=== PATIENT | female | born 1940 | race Caucasian/White ===

== ENCOUNTER → 2020-03-13 10:14 | Outpatient (CLI) | payer MEDICARE, OTHER, SELFPAY ==
--- NOTE | ~2020-03-13 | MM_ITS ---
EXAMINATION: MM screening mireille BI w wally HISTORY: Screening mammogram TECHNIQUE: Craniocaudal and mediolateral oblique 3-D tomosynthesis images were obtained and synthetic 2-D images were generated. CAD analysis was submitted and interpreted. COMPARISON: 02/03/2019, 01/03/2018, 11/09/2016 bilateral digital screening mammogram examinations BREAST PARENCHYMAL COMPOSITION: There are scattered areas of fibroglandular density. FINDINGS: There is no evidence of suspicious mass, calcification, or architectural distortion to sugg est malignancy in either breast. There has been no suspicious interval change. IMPRESSION: 1. No mammographic evidence of malignancy. 2. Recommend routine screening mammography in one year. BI-RADS Category 1: Negative Reviewed, dictated and finalized at location A. NOMETER ADJUSTER
--- NOTE | ~2020-03-13 | DEXA_ITS ---
Bone Density Report Name: Laina Kirk Age: 79 Sex: Female Ethnicity: White Date of : 1940 Indication: postmenopausal; screening for osteoporosis; height loss; hysterectomy; Referring Provider: Sunita Anaya Study: Bone densitometry was performed. Exam Date: March 13, 2020 Accession number: [id number] There is hypertrophic degenerative change of the lumbar spine, which results in higher than expected spine bone mineral density measurements. These spine BMD and T score and Z score measurements are not reflective of the patient's true general bone mineral density. Bone Density: Region BMD T-score Z-score Classification AP Spine (L1, L4) 1.024 -0.1 2.6 Normal Femoral Neck (Left) 0.618 -2.1 0.3 Osteopenia Total Hip (Left) 0.810 -1.1 1.0 Osteopenia Femoral Neck (Right) 0.681 -1.5 0.8 Osteopenia Total Hip (Right) 0.928 -0.1 2.0 Normal Total Hip Mean 0.869 -0.6 1.5 Normal World Health Organization criteria for BMD impression classify patients as: Normal (T-score at or above -1.0), Osteopenia (T-score between -1.0 and -2.5), or Osteoporosis (T-score at or below -2.5). 10-year Fracture Risk(1): Major Osteoporotic Fracture 16% Hip Fracture 4.8% Reported Risk Factors: [place] (), Neck BMD=0.618, BMI=27.9 (1) FRAX(R) Version 3.08. Fracture probability calculated for an untreated patient. Fracture probability may be lower if the patient has received treatment. Previous Exams: Region Exam Age BMD T-score BMD Change BMD Change Date g/cm2 vs Baseline vs Previous AP Spine(L1, L4) 03/13/2020 79 1.024 -0.1 0.025 0.007 12/18/2017 77 1.017 -0.2 0.018 0.026* 07/07/2010 69 0.991 -0.4 -0.008 -0.008 09/07/2003 62 0.999 -0.3 Total Hip(Left) 03/13/2020 79 0.810 -1.1 0.015 -0.026 12/18/2017 77 0.836 -0.9 0.041 0.042* 07/07/2010 69 0.794 -1.2 -0.002 -0.002 09/07/2003 62 0.795 -1.2 Total Hip(Right) 03/13/2020 79 0.928 -0.1 0.047 -0.004 12/18/2017 77 0.932 -0.1 0.050 0.059* 07/07/2010 69 0.873 -0.6 -0.009 -0.009 09/07/2003 62 0.881 -0.5 *Denotes significance at 95% confidence level, LSC for AP Spine = 0.022 g/cm2, LSC for Total Hip = 0.027 g/cm2 Clinical Information Provided by Patient: Has used the following medications: Vitamin D, Calcium Has the following medical conditions: Hysterec
== END ==
PROVIDERS: Visit Provider Family Medicine
DX: Z12.31 Encounter for screening mammogram for malignant neoplasm of breast (principal); Z78.0 Asymptomatic menopausal state; M85.89 Other specified disorders of bone density and structure, multiple sites
CPT/HCPCS: 77063; 77067; 77080

== ENCOUNTER 2020-12-31 13:01 | Emergency (ER) | payer MEDICARE, SELFPAY ==
--- NOTE | 2020-12-31 13:04 | ED.URI ---
HPI - URI/Sore Throat General Chief Complaint: Upper Respiratory Infection Stated Complaint: Sore Throat,Cough,Body Aches,Sinus Time Seen by Provider: 12/31/20 13:08 Source: patient, family (daughter), RN notes reviewed and old records reviewed Mode of arrival: ambulatory Limitations: no limitations History of Present Illness HPI Narrative: 80 yo female presents to the [facility] with C/O sore throat, sinus congestion and right ear discomfort since Sunday, 4 days. Tried Mucinex last night without relief. Patient denies chest pain. No abdominal pain. No fevers. No nausea vomiting or diarrhea. Related Data Home Medications Medication Instructions Recorded Confirmed calcium phosphate 250 mg-vit D3 1 tablet PO DAILY 03/04/19 12/31/20 12.5 mcg (500 unit) chewable tablet biotin 5,000 mcg disintegrating 5,000 mcg PO DAILY tablet 01/07/20 12/31/20 tablet cholecalciferol (vitamin D3) 50 50 mcg PO DAILY 01/07/20 12/31/20 mcg (2,000 unit) capsule psyllium husk 0.4 gram capsule 0.4 g PO DAILY 01/07/20 12/31/20 Allergies Allergy/AdvReac Type Severity Reaction Status Date / Time Sulfa (Sulfonamide Allergy Mild Hives Verified 12/31/20 13:19 Antibiotics) Review of Systems Review of Systems: All systems reviewed & are unremarkable except as noted in HPI and below Constitutional: Constitutional: Reports no additional constitutional complaints, Denies chills and Denies fever(s) Eyes: Eyes: Reports no additional eye complaints, Denies change in vision and Denies photophobia ENT: Reports as per HPI and Reports sore throat Cardiovascular: Cardiovascular: Reports no additional cardiovascular complaints and Denies chest pain Respiratory: Respiratory: Reports no additional respiratory complaints, Denies cough, Denies dyspnea and Denies wheezing Gastrointestinal: Gastrointestinal: Reports no additional gastrointestinal complaints, Denies abdominal pain, Denies nausea and Denies vomiting Musculoskeletal: Musculoskeletal: Reports no additional musculoskeletal complaints Integumentary/Breasts: Skin/Breast: Reports system reviewed and no additional complaints, except as docu Neurologic: Reports system reviewed and no additional complaints, except as documented Psychiatric: Psychiatric: Reports no additional psychiatric complaints Allergic/Immunologic: Allergic/Immunologic: Reports no additional allergic/immunologic complaints PMFSH Past Medical History Medical History Chronic low back pain without sciatica Dyslipidemia Essential (primary) hypertension GERD without esophagitis Osteoarthritis Osteopenia Vitamin D deficiency Surgical History Surgical History (Updated 12/31/20 @ 15:31 by Clara Cooper) History of cataract surgery 2015 - b/l History of hysterectomy History of left knee replacement 2000 History of tonsillectomy Family History Family History Other Diabetes mellitus Hypertension Social History Social History Smoking status: Never smoker Second hand tobacco smoke exposure: No Smoking end date: 02/26/93 Alcohol intake: current Alcohol use details: seldom Substance use: never Comments At the time of my signature, I reviewed and agree with the nursing past medical, surgical, social, and family history. There is no relevant family history pertinent to the patient complaint. Exam Const: General: healthy appearing, no acute distress and alert Nutritional Appearance: well nourished Orientation/consciousness: patient oriented x3 Limitations: no limitations HENMT: Head: normal to inspection Ears: external ears normal, TM's normal bilaterally and EAC's normal Eyes: Conjunctivae: conjunctivae normal Pupils: Equal, round and reactive pupils present Direct Ophthalmoscopy: no photophobia Neck: Neck: normal visual inspection, no ly
[2020-12-31 13:11] VITALS: BP 127/52; PULSE 72; RESP 18; TEMP 36.8; O2SAT 100
== END 2020-12-31 13:36 | disposition home or self-care (01) ==
PROVIDERS: Emergency Provider Nurse Practitioner; PCP Family Medicine
DX: J02.8 Acute pharyngitis due to other specified organisms (principal); E78.5 Hyperlipidemia, unspecified; I10 Essential (primary) hypertension; K21.9 Gastro-esophageal reflux disease without esophagitis; M19.90 Unspecified osteoarthritis, unspecified site; M85.80 Other specified disorders of bone density and structure, unspecified site; E55.9 Vitamin D deficiency, unspecified; Z96.652 Presence of left artificial knee joint
CPT/HCPCS: 87081; 87880; 99213; G0463

== ENCOUNTER 2021-01-17 11:30 | Outpatient (CLI) | payer MEDICARE, SELFPAY ==
--- NOTE | ~2021-01-17 | XR_ITS ---
XR lumbar spine 2-3V 01/17/2021 11:54 Indication: Low back pain Procedure: 3 views lumbar spine Comparison: 03/01/2006 Findings: There is disc narrowing at all lumbar levels. There is dextroscoliosis centered at L3. Ther e is multilevel facet degenerative change. There is degenerative retrolisthesis at L3-4. There are pr ominent marginal osteophytes at most levels. Sacral foramen are symmetric. No acute osseous abnormali ty. Impression: 1: Progression of severe lumbar spondylosis with dextroscoliosis. Reviewed, dictated and finalized at location A. EYOR MAN Impression: 1: Progression of severe lumbar spondylosis with dextroscoliosis.
== END 2021-01-17 11:31 | disposition home or self-care (01) ==
LOC: ANHIMG 11:34
PROVIDERS: PCP Family Medicine; Visit Provider Family Medicine
DX: G89.29 Other chronic pain (principal); M54.50 Low back pain, unspecified; M47.816 Spondylosis without myelopathy or radiculopathy, lumbar region; M41.86 Other forms of scoliosis, lumbar region
CPT/HCPCS: 72100

== ENCOUNTER 2021-03-14 08:26 | Outpatient (CLI) | payer MEDICARE, SELFPAY ==
--- NOTE | ~2021-03-14 | MR_ITS ---
EXAMINATION: MR lumbar spine wo con EXAM DATE: 03/14/2021 09:39 INDICATION: M54.41 - Lumbago with sciatica, right side. TECHNIQUE: Multi-sequential, multiplanar MR images of the lumbar spine were obtained without contrast . Sagittal T1, T2, T2 fat saturation images. Axial T2 weighted images. There is no prior study for comparison. FINDINGS: There is moderate thoracic dextroscoliosis. Moderate to severe disc disease L2-L5, mild at the other 2 lumbar levels. There is 2 to 3 mm retrolisthesis L2 on L3 and L3 on L4. The conus medulla ris terminates at the T12-L1 level and has normal signal intensity and morphology. There are no susp icious marrow signal abnormalities. Several vertebral body hemangiomata. There is mild loss of the L2 , L3 and L4 vertebral body heights along the concave side of the scoliosis. Paraspinal soft tissue is unremarkable. Level by level evaluation: T12-L1: Disc does not extend beyond the endplate margin. Facet arthropathy: Moderate. Neural foraminal stenosis: No stenosis. Central canal stenosis: No stenosis. L1-L2: There is a mild diffuse disc bulge. Facet arthropathy: Mild to moderate. Neural foraminal stenosis: No stenosis. Central canal stenosis: No stenosis. L2-L3: There is a moderate diffuse disc bulge. Facet arthropathy: Mild to moderate. Neural foraminal stenosis: Mild to moderate left. Central canal stenosis: Mild. L3-L4: There is a moderate diffuse disc bulge. Facet arthropathy: Moderate. Neural foraminal stenosis: Mild to moderate left, mild right. Central canal stenosis: Mild to moderate. L4-L5: There is a moderate diffuse disc bulge. Facet arthropathy: Moderate. Neural foraminal stenosis: Moderate right, mild to moderate left. Central canal stenosis: Mild to moderate. L5-S1: There is a mild to moderate diffuse disc bulge. Facet arthropathy: Moderate to severe right, mild to moderate left. Neural foraminal stenosis: Mild right. Central canal stenosis: No stenosis. IMPRESSION: 1. Moderate lumbar dextroscoliosis with mild chronic compressions along the concave side of L2-L4. 2. Moderate to severe mid lumbar disc disease. 3. Right L4-5 neural foramina most narrowed on exam. Reviewed, dictated and finalized at location G. Y CONSULTANT IMPRESSION: 1. Moderate lumbar dextroscoliosis with mild chronic compressions along the co ncave side of L2-L4. 2. Moderate to severe mid lumbar disc disease. 3. Right L4-5 neural foramina most narrowed on exam.
== END 2021-03-14 08:27 | disposition home or self-care (01) ==
PROVIDERS: PCP Family Medicine; Visit Provider Nurse Practitioner Family
DX: G89.29 Other chronic pain (principal); M54.41 Lumbago with sciatica, right side; M41.86 Other forms of scoliosis, lumbar region; M51.86 Other intervertebral disc disorders, lumbar region
CPT/HCPCS: 72148

== ENCOUNTER → 2021-07-11 13:09 | Outpatient (CLI) | payer MEDICARE, OTHER, SELFPAY ==
--- NOTE | ~2021-07-11 | MM_ITS ---
EXAMINATION: MM screening mireille BI w wally HISTORY: Screening mammogram, family history of breast cancer in her mother. TECHNIQUE: Craniocaudal and mediolateral oblique 3-D tomosynthesis images were obtained and synthetic 2-D images were generated. CAD analysis was submitted and interpreted. COMPARISON: 03/13/2020, 02/03/2019 BREAST PARENCHYMAL COMPOSITION: There are scattered areas of fibroglandular density. FINDINGS: There is no suspicious mass, calcification, or architectural distortion to suggest malignan cy in either breast. There has been no suspicious interval change. IMPRESSION: 1. No mammographic evidence of malignancy. 2. Recommend routine screening mammography in one year. BI-RADS Category 1: Negative Reviewed, dictated and finalized at location A.
== END ==
PROVIDERS: PCP Family Medicine; Visit Provider Family Medicine
DX: Z12.31 Encounter for screening mammogram for malignant neoplasm of breast (principal)
CPT/HCPCS: 77063; 77067

== ENCOUNTER 2021-08-08 08:53 | Emergency (ER) | payer MEDICARE, SELFPAY ==
--- NOTE | ~2021-08-08 | XR_ITS ---
EXAMINATION: XR chest 1V portable DATE: 08/08/2021 09:58 INDICATION: Cough. Shortness of breath. TECHNIQUE: A single frontal view of the chest was obtained. COMPARISON: Chest single view 11/25/2018 FINDINGS: The patient is rotated to her right. There is mild atelectasis at the lung bases. No pneumo kim, pleural effusion, or pneumothorax. The heart size is normal. IMPRESSION: 1. Mild atelectasis at the lung bases. Reviewed, dictated and finalized at location B.
[2021-08-08 09:00] VITALS: BP 175/65; PULSE 60; RESP 20; TEMP 36.8; O2SAT 100
--- NOTE | 2021-08-08 09:07 | ECG_ITS ---
Measurements Intervals [place] Rate: 46 P: 52 [place]: 131 QRS: 10 QRSD: 93 T: 21 QT: 456 QTc: 401 Interpretive Statements SINUS BRADYCARDIA NO PREVIOUS ECG AVAILABLE FOR COMPARISON Electronically Signed On 08-08-2021 16:23:03 CDT by Angelo Wetzel M.D.
--- NOTE | 2021-08-08 09:08 | ED.URI ---
HPI - URI/Sore Throat General Chief Complaint: Upper Respiratory Infection Stated Complaint: Covid-19 + not felling well Time Seen by Provider: 08/08/21 08:58 Source: patient Mode of arrival: ambulatory Limitations: no limitations History of Present Illness HPI Narrative: 80 year old female presents today with complaints of not feeling well. Patient tested positive for covid on 08/01/2021 and states she feels worse today. Patient with complaints of body aches, productive cough with thick yellow sputum, weakness but denies sob, chest pain, current fevers, sorethroat. Patient states she has been using Tylenol without relief last dose last night. Patient also states she fell on sunday not sure if she got dizzy or not. She fell after standing up from pulling a weed. Related Data Home Medications Medication Instructions Recorded Confirmed calcium phosphate 250 mg-vit D3 1 tablet PO DAILY 03/04/19 07/18/21 12.5 mcg (500 unit) chewable tablet (Citracal-D3 Gummies) biotin 5,000 mcg disintegrating 5,000 mcg PO DAILY 01/07/20 07/18/21 tablet psyllium husk 0.4 gram capsule 0.4 g PO DAILY PRN 03/08/21 07/18/21 (Metamucil) Allergies Allergy/AdvReac Type Severity Reaction Status Date / Time Sulfa (Sulfonamide Allergy Mild Hives Verified 08/08/21 09:10 Antibiotics) Review of Systems Review of Systems: CONSTITUTIONAL: Denies fever, chills, or sweats. EYES: Denies visual changes, redness, or discharge. ENT: Denies rhinorrhea, congestion, sore throat, or otalgia. CARDIOVASCULAR: Denies chest pain, palpitations, or edema. RESPIRATORY: Productive cough. Denies dyspnea. GASTROINTESTINAL: Denies abdominal pain, nausea, vomiting, or diarrhea. GENITOURINARY: Denies dysuria or hematuria. SKIN: Denies rash or itching. MUSCULOSKELETAL: Denies back pain, joint pain, or myalgia. NEUROLOGIC: Weakness. Denies headache, numbness, dizziness. PSYCHIATRIC: Denies anxiety or depression. [facility] Past Medical History Medical History Chronic low back pain without sciatica Dyslipidemia Essential (primary) hypertension GERD without esophagitis Osteoarthritis Osteopenia Seasonal allergies Vitamin D deficiency Surgical History Surgical History History of cataract surgery 2015 - b/l History of hysterectomy History of left knee replacement 2000 History of tonsillectomy Family History Family History Other Diabetes mellitus Hypertension Social History Social History Second hand tobacco smoke exposure: No Smoking end date: 02/26/93 Alcohol intake: current Alcohol use details: seldom Substance use: never Exam Narrative: GENERAL: Well-appearing, well-nourished, and in no acute distress. HEAD: Normocephalic, atraumatic. EYES: PERRLA and EOMI. NECK: Supple. No adenopathy or masses. No carotid bruits or JVD CHEST: Slight wheeze right upper lobe. No respiratory distress. No rales or rhonchi HEART: Regular rate and rhythm. No murmur heard. Normal peripheral pulses. ABDOMEN: Soft, nontender, nondistended, normal active bowel sounds. EXTREMITIES: Normal range of motion. No edema. SKIN: Warm, dry, no rash. NEURO: No focal deficits. Alert and oriented x3. PSYCH: Normal mood and affect. Course Course Emergency Course: Patient with noted improvement after Toradol injection. Patient states she actually was able to get some rest. Reviewed labs, x-ray, and vitals with patient. Patient to be discharged home and to return with any new or worsening symptoms. Patient is to follow-up with primary in 2 days. She is aware of this and has no questions at this time. Patient is agreement with plan of care. Vital Signs Vital signs: Vital Signs Temperature 36.8 C 08/08/21 09:00 Pulse Rate 60 06/1
[2021-08-08 09:09] VITALS: O2SAT 100
[2021-08-08] MEDS: SODIUM CHLORIDE 0.9% IV 500 ML 999 ML IV CONT (09:25)
[2021-08-08] MEDS: ACETAMINOPHEN 500 MG TABLET 1000 MG PO (09:26)
[2021-08-08 09:48] LABS: Basophils Percent Auto 0.2 % (0.2-1.2); Eosinophils Percent Auto 0.8 % (0-4.4); Hematocrit 41.4 % (37.0-47.0); Hemoglobin 14.2 g/dL (12.0-15.0); Immature Granulocyte Absolute 0.02 K/mm3 (0.00-0.031); Immature Granulocyte Percent A 0.4 % (0-0.5); Lymphocytes Absolute Auto 1.67 K/mm3 (0.9-3.2); Lymphocytes Percent Auto 31.5 % (18.3-44.2); Mean Corpuscular HGB Conc 34.3 g/dl (32-36); Mean Corpuscular Hemoglobin 31.5 pg (26-34); Mean Corpuscular Volume 91.8 fl (80-100); Mean Platelet Volume 10.3 fl (7.4-10.4); Monocytes Absolute Auto 0.6 K/mm3 (0.1-0.6); Monocytes Percent Auto 12.1 % (2.6-8.5); Neutrophils Absolute Auto 2.9 K/mm3 (1.3-6.7); Platelet Count Result 183 k/mm3 (150-375); Red Blood Count 4.51 M/mm3 (4.2-5.4); Red Cell Distribution Width 12.3 % (11.5-14.5); White Blood Count 5.3 K/mm3 (4.5-10.0)
[2021-08-08 09:57] LABS: Alanine Aminotransferase 18 U/L (6-35); Albumin Level 4.4 g/dL (3.5-5.1); Alkaline Phosphatase 57 U/L (38-126); Anion Gap 5 mmol/L (8-16); Aspartate Amino Transferase 29 U/L (14-36); Bilirubin,Total 0.6 mg/dL (0.2-1.3); Blood Urea Nitrogen 11 mg/dL (7-17); Calcium 9.2 mg/dL (8.4-10.2); Carbon Dioxide 31 mmol/L (22-30); Chloride 99 mmol/L (98-107); Estimated CRCL calculation 46 ml/min; Estimated Glomerular Filt Rate > 60; Glucose 98 mg/dL (65-110); Potassium 3.3 mmol/L (3.4-5.0); Sodium 135 mmol/L (137-145)
[2021-08-08] MEDS: KETOROLAC 15 MG/ML VIAL (*BKC) IV PUSH (10:28)
[2021-08-08] MEDS: POTASSIUM CHLORIDE 20 MEQ TABLET PO (10:28)
[2021-08-08 10:37] VITALS: BP 157/61; PULSE 58; RESP 14; O2SAT 99
[2021-08-08 11:47] VITALS: BP 143/57; PULSE 58; RESP 17; O2SAT 100
== END 2021-08-08 11:49 | disposition home or self-care (01) ==
PROVIDERS: Emergency Provider Nurse Practitioner Family; PCP Family Medicine
DX: U07.1 COVID-19 (principal); I10 Essential (primary) hypertension
CPT/HCPCS: 36415; 71045; 80053; 85025; 87804; 93005; 96361; 96374; 99284; A9270; J1885; J7040

== ENCOUNTER → 2021-08-15 09:43 | Outpatient (CLI) | payer MEDICARE, OTHER, SELFPAY ==
--- NOTE | ~2021-08-15 | XR_ITS ---
XR hip RT min 3V w AP pelvis DATE: 08/15/2021 10:11 INDICATION: Right hip pain TECHNIQUE: AP pelvis. AP and lateral views of right hip COMPARISON: 03/04/2014 right hip FINDINGS: There is dextroscoliosis and multilevel degenerative disc disease of the lumbar spine. The pubic symphysis and sacral iliac joints are intact. No pelvic fracture or bone destruction. There is mild right hip osteoarthritis. No fracture or dislocation, avascular necrosis or bone destru ction of the right hip is detected. IMPRESSION: Mild right hip osteoarthritis Dextro scoliosis and multilevel degenerative disc disease of the lumbar spine Reviewed, dictated and finalized at location A.
== END ==
PROVIDERS: PCP Family Medicine; Visit Provider Nurse Practitioner
DX: M25.551 Pain in right hip (principal); M16.11 Unilateral primary osteoarthritis, right hip; M41.86 Other forms of scoliosis, lumbar region
CPT/HCPCS: 73502

== ENCOUNTER 2022-04-10 12:30 | Outpatient (RCR) | payer MEDICARE, SELFPAY ==
--- NOTE | 2022-01-31 13:39 | PTOPEVAL1 ---
Assessment and note entered by Selena Michel, PT, DPT Evaluation Information Assessment Status Evaluation Diagnosis mandeep thigh pain Onset 6 months Subjective Information Pt reports lateral leg pain in her R thigh and lateral calf down to her R ankle. She states she also has thigh pain on the L, but the R is worse. She states her pain has been getting progressively worse over the last 6 months. She reports she also has some back pain. She states she has not been walking as much since her leg pain has started, she used to walk 1-2 miles a day. Reported Pain Level Pain Score 5: Self Report Assessment PT Clinical Summary Laina presents to therapy today for her initial evaluation with a diagnosis of mandeep ITB syndrome. Today she demonstrates decreased flexibility of her hip flexors, ITB, and hamstrings bilaterally. She also reports tenderness to palpation along her ITB R>L. She ambulates with a decreased stride length. Skilled physical therapy services are indicated to improved soft tissue extensibility, flexibility, to decreased pain, and to return to baseline function. Plan of Care Interventions Gait Training,Hot Pack/Cold Pack,Manual Therapy, Neuro Re-education,Patient/Caregiver Educati, Therapeutic Activities,Therapeutic Exercise, Ultrasound PT Services Indicated Yes Treatment Frequency and 1x/wk for 5 wks Duration These treatments will address the objective and functional deficits as defined above. The patient will be advanced safely and appropriately in order for the patient to progress towards his/her prior level of function. Additional exercises will be introduced and as well as a comprehensive home exercise program upon discharge, if needed, ?to ensure carryover of functional gains achieved in the clinic. This treatment plan has been reviewed and agreement upon by the patient.
--- NOTE | 2022-03-09 13:29 | PTOPPROG ---
Assessment and note entered by Selena Michel, PT, DPT Evaluation Information Assessment Status Progress Diagnosis mandeep thigh pain Onset 6 months Subjective Information Pt states when she is up moving around is when her legs feel the best. She states her pain increases when she is laying down at night. She states intermittently she will wake up with pain but walking around her home for a few minutes helps. She states her back hurts most when standing or sitting. She would like to transition the focus onto her low back pain. Assessment PT Clinical Summary Laina presents to therapy today for her progress report following 4 visits of skilled therapy to treat her mandeep LE pain. Today she reports good improvement with this and has a decrease in pain. She now reports her greatest limitation is her low back pain, imaging shows severe lumbar spondylosis. She demonstrates decreased core strength in supine and decreased body awareness and standing tolerance. Continuation of skilled physical therapy services are indicated to improve strength, mobility, body awareness, and to manage pain. Plan of Care Interventions Gait Training,Hot Pack/Cold Pack,Manual Therapy, Neuro Re-education,Patient/Caregiver Educati, Therapeutic Activities,Therapeutic Exercise, Ultrasound PT Services Indicated Yes Treatment Frequency and 1x/wk for 5 wks Duration These treatments will address the objective and functional deficits as defined above. The patient will be advanced safely and appropriately in order for the patient to progress towards his/her prior level of function. Additional exercises will be introduced and as well as a comprehensive home exercise program upon discharge, if needed, ?to ensure carryover of functional gains achieved in the clinic. This treatment plan has been reviewed and agreement upon by the patient.
--- NOTE | 2022-03-29 09:29 | PCPTNOTE ---
Patient called to cancel this date due to illness.
--- NOTE | 2022-04-10 13:05 | PTOPDC ---
Assessment and note entered by Selena Michel, PT, DPT Evaluation Information Assessment Status Discharge Diagnosis mandeep thigh pain Onset 6 months Subjective Information Pt states the exercises have helped her pain a lot . Pt report 0/10 at rest, and 5/10 at the worst in the last week. She reports 70% improvement in overall symptoms. She states she can lay on her side for a few hours before her increase in symptoms. Pt states her greatest limitation at this time is her back. Reported Pain Level Pain Score 0,4,0: Self Report Assessment PT Clinical Summary Laina presents to therapy today for her progress report following 8 visits of skilled therapy to treat her mandeep leg pain. Today she reports subjective improvements in her LE pain without many strength or ROM improvements. She states today she is limited by her low back pain more than her leg pain. She reports good compliance with her HEP and wishes to continue her exercises on her own. Therapist is agreeable with this POC therefore she will be discharged. If she needs additional therapy at a later date she will need a new order. Plan of Care PT Services Indicated No Treatment Frequency and to be discharged Duration
== END 2022-04-10 13:58 | disposition home or self-care (01) ==
LOC: ANHGOSHPT 12:30
PROVIDERS: PCP Family Medicine; Visit Provider Family Medicine
DX: M76.31 Iliotibial band syndrome, right leg (principal); M76.32 Iliotibial band syndrome, left leg; M79.659 Pain in unspecified thigh; M54.50 Low back pain, unspecified; G89.29 Other chronic pain
CPT/HCPCS: 97110; 97112; 97140; 97161; 97530

== ENCOUNTER 2022-07-16 14:47 | Emergency (ER) | payer MEDICARE, SELFPAY ==
[2022-07-16] VITALS (31 sets, daily range): BP systolic 120–149; BP diastolic 41–67; PULSE 39–55; RESP 12–28; TEMP 36.4–36.6; O2SAT 98–100
--- NOTE | ~2022-07-16 | XR_ITS ---
EXAMINATION: XR chest 2V Exam Date/Time: 07/16/2022 15:28 CDT HISTORY: weakness Comparison: 08/08/2021; 10/20/2017. RESULT: Lines, tubes, and devices: None. Lungs and pleura: No focal consolidation, pneumothorax, or pleural effusion. Senescent changes. Cardiomediastinal silhouette: Stable. Other: No acute osseous or upper abdominal finding. IMPRESSION: No acute cardiopulmonary process. Reviewed, dictated and finalized at location K.
--- NOTE | 2022-07-16 14:59 | ECG_ITS ---
Measurements Intervals [place] Rate: 45 P: 58 [place]: 174 QRS: 21 QRSD: 91 T: 35 QT: 472 QTc: 411 Interpretive Statements SINUS BRADYCARDIA POSSIBLE LEFT ATRIAL ENLARGEMENT ABNORMAL ECG COMPARED TO ECG 08/08/2021 10:00:01 NO SIGNIFICANT CHANGES Electronically Signed On 07-16-2022 22:00:11 CDT by David Pitts D.O.
[2022-07-16 15:29] LABS: Basophils Percent Auto 0.3 % (0.2-1.2); Eosinophils Absolute Auto 0.1 K/mm3 (0-0.3); Eosinophils Percent Auto 0.5 % (0-4.4); Hematocrit 35.7 % (37.0-47.0); Hemoglobin 12.2 g/dL (12.0-15.0); Immature Granulocyte Absolute 0.03 K/mm3 (0.00-0.031); Immature Granulocyte Percent A 0.3 % (0-0.5); Lymphocytes Absolute Auto 2.72 K/mm3 (0.9-3.2); Lymphocytes Percent Auto 28.3 % (18.3-44.2); Mean Corpuscular HGB Conc 34.2 g/dl (32-36); Mean Corpuscular Hemoglobin 30.6 pg (26-34); Mean Corpuscular Volume 89.5 fl (80-100); Mean Platelet Volume 10.1 fl (7.4-10.4); Monocytes Absolute Auto 1.2 K/mm3 (0.1-0.6); Monocytes Percent Auto 12.6 % (2.6-8.5); Neutrophils Absolute Auto 5.6 K/mm3 (1.3-6.7); Platelet Count Result 224 k/mm3 (150-375); Red Blood Count 3.99 M/mm3 (4.2-5.4); White Blood Count 9.6 K/mm3 (4.5-10.0)
[2022-07-16 15:40] LABS: Alanine Aminotransferase 23 U/L (6-35); Albumin Level 3.8 g/dL (3.5-5.1); Alkaline Phosphatase 54 U/L (38-126); Anion Gap 6 mmol/L (8-16); Aspartate Amino Transferase 29 U/L (14-36); Bilirubin,Total 0.5 mg/dL (0.2-1.3); Blood Urea Nitrogen 21 mg/dL (7-17); Calcium 8.6 mg/dL (8.4-10.2); Carbon Dioxide 30 mmol/L (22-30); Chloride 90 mmol/L (98-107); Estimated CRCL calculation 40 ml/min; Estimated Glomerular Filt Rate 60; Glucose 122 mg/dL (65-110); Potassium 3.3 mmol/L (3.4-5.0); Sodium 126 mmol/L (137-145)
[2022-07-16 15:51] LABS: Troponin I < 0.012 ng/mL (0.000-0.034)
--- NOTE | 2022-07-16 16:52 | ED.GENADULT ---
HPI - General Adult General Chief complaint: Weakness Stated complaint: low bp, achy, dont' feel good Time Seen by Provider: 07/16/22 15:29 History of Present Illness HPI narrative: 81-year-old female presented the emergency department for evaluation of 3 days of increased generalized weakness and fatigue. Patient states that she went on a trip with her family to [place] to see [place]. On Sunday patient began having increasing fatigue. Patient states she has had decreased p.o. intake but denies any nausea vomiting. Family has noticed on the patient's blood pressure monitor at home that he has had some bradycardia and some hypotension. Upon arrival to the ED patient's heart rate was in the 50s but patient's blood pressure was higher than she was having at home. Patient does not report any lightheaded or dizziness but does report increased generalized weakness and body aches. Related Data Home Medications Medication Instructions Recorded Confirmed calcium phosphate 250 mg-vit D3 1 tablet PO DAILY 03/04/19 01/23/22 12.5 mcg (500 unit) chewable tablet (Citracal-D3 Gummies) biotin 5,000 mcg disintegrating 5,000 mcg PO DAILY 01/07/20 01/23/22 tablet psyllium husk 0.4 gram capsule 0.4 g PO DAILY PRN 03/08/21 01/23/22 (Metamucil) Allergies Allergy/AdvReac Type Severity Reaction Status Date / Time Sulfa (Sulfonamide Allergy Mild Hives Verified 07/16/22 14:48 Antibiotics) Review of Systems Review of Systems: All systems reviewed & are unremarkable except as noted in HPI and below PMFSH Past Medical History Medical History Chronic low back pain Dyslipidemia Essential (primary) hypertension GERD without esophagitis Osteoarthritis Osteopenia Seasonal allergies Vitamin D deficiency Surgical History Surgical History History of cataract surgery 2014 - /l History of hysterectomy History of left knee replacement 2000 History of tonsillectomy Family History Family History Other Diabetes mellitus Hypertension Social History Social History Smoking status: Never smoker Second hand tobacco smoke exposure: No Smoking end date: 02/26/93 Alcohol intake: current Alcohol use details: seldom Substance use: never Substance use type: does not use Living arrangements: alone Occupation/Education: retired Gender identity (if verbalized by the patient): Female Agree to blood products: Yes Exam Narrative: APPEARANCE: Well appearing, no pain, no distress, well-nourished. HEAD: normocephalic, atraumatic. EYES: PERRLA/EOMI, conjunctivae clear. NOSE: Normal no drainage NECK: Supple. No adenopathy, no masses. RESPIRATORY: Airway patent, respirations nonlabored. Clear to auscultation bilaterally, no rales, rhonchi, wheezing. CARDIOVASCULAR: Regular rate and rhythm without murmurs rubs or gallops. ABDOMINAL: Soft, nontender, nondistended, normal bowel sounds MUSCULOSKELETAL: Moves all extremities. Strength/ROM intact, No edema, No calf tenderness. NEURO: Alert. Cranial nerves II through XII intact. Grossly intact SKIN: Warm, dry. Normal Color Course Course Emergency Course: 81-year-old female presented the emergency department for evaluation of generalized weakness. Patient was having some gallbladders at home but had no hypotension here. Patient's orthostatics were negative. Patient was afebrile with no leukocytosis. Patient's hemoglobin was stable. Patient's CMP was generally within normal limits. Patient did have some mild hyponatremia. Patient's UA shows no evidence of urinary tract infection. Patient's influenza RSV COVID were negative. Patient was offered admission for her generalized weakness but patient and daughter preferred to go home.
[2022-07-16 17:08] LABS: Magnesium 2.2 mg/dL (1.6-2.3)
[2022-07-16 17:08] LABS: Appearance Urine Clear (Clear); Bacteria Urine None Seen /hpf; Bilirubin Urine Negative (Negative); Blood Urine Negative (Negative); Color Urine Yellow (Yellow); Glucose Urine UA Negative (Negative); Ketones Urine Negative (Negative); Leukocyte Esterase Ur 1+ LEU/UL (Negative); Need Manual Microscopic Reviewed; Nitrate Urine Negative (Negative); Non Pathogenic Casts 0-2; Protein Urine Negative (Negative); RBC Urine 0-2 /hpf (0-2); Specific Grav Ur 1.006 (1.001-1.035); Squamous Epithelial Cell Urine None seen /hpf (Few); Urobilinogen Urine 0.2 mg/dL (<2.0); WBC Urine 0-5 /hpf; pH Urine 6.5 (5.0-9.0)
[2022-07-16 17:09] LABS: Add Urine Microscopic? YES
[2022-07-16 17:31] LABS: Influenza A QL RT-PCR Negative (Negative); Influenza B QL RT-PCR Negative (Negative); RSV RNA, RT-PCR Negative (Negative); SARS-CoV-2 RNA PCR Negative (Negative)
[2022-07-16] MEDS: SODIUM CHLORIDE 0.9% IV 1,000 ML 999 ML IV CONT (18:51)
== END 2022-07-16 19:54 | disposition home or self-care (01) ==
PROVIDERS: Emergency Provider Emergency Medicine; PCP Family Medicine
DX: E87.1 Hypo-osmolality and hyponatremia (principal); R53.1 Weakness; Z20.822 Contact with and (suspected) exposure to COVID-19; I10 Essential (primary) hypertension; E78.5 Hyperlipidemia, unspecified; E55.9 Vitamin D deficiency, unspecified; K21.9 Gastro-esophageal reflux disease without esophagitis; M19.90 Unspecified osteoarthritis, unspecified site; M85.80 Other specified disorders of bone density and structure, unspecified site; Z98.42 Cataract extraction status, left eye; Z98.41 Cataract extraction status, right eye; Z96.652 Presence of left artificial knee joint; Z87.891 Personal history of nicotine dependence
CPT/HCPCS: 36415; 71046; 80053; 81001; 83735; 84443; 84484; 85025; 87637; 93005; 96360; 99284; J7030

== ENCOUNTER 2022-07-26 10:52 | Inpatient (IN) | payer MEDICARE, SELFPAY ==
[2022-07-26] VITALS (23 sets, daily range): BP systolic 142–195; BP diastolic 53–98; PULSE 41–69; RESP 11–20; TEMP 35.8–36.4; O2SAT 96–100; BMI 26.7
--- NOTE | 2022-07-26 | ECHO_ITS ---
Patient Info Name: Laina Kirk Age: 81 years : 1940 Gender: Female Ht: 67 in Wt: 169 lbs BSA: 1.92 m2 HR: 48 bpm BP: 184 / 75 mmHg Heart Rhythm: Sinus Rhythm, Bradycardia Technical Quality: Good Exam Date: 07/26/2022 4:23 PM Exam Location: [facility] Pulmonary Exam Room: [place] [address] Patient Status: Inpatient Admit Date: 07/26/2022 Staff Ordering Physician: Bulmaro Saldana MD ([email or web address]) Supervisor Assembly And Packing: Rosalia Pal RDCS Attending Provider: Ania Watson MD Referring Physician: Les ELISE; Exam Type: CA echo doppler color flow Study Info Indications - BRADYCARDIA Complete two-dimensional, color flow and Doppler transthoracic echocardiogram is performed. Summary 1. Complete two-dimensional, color flow and Doppler transthoracic echocardiogram is performed. 2. Left ventricular chamber dimension is normal. 3. Left ventricular systolic function is normal, estimated at 65-70%. 4. There is moderately increased left ventricular wall thickness. 5. The left ventricular diastolic function is grade I diastolic dysfunction. 6. Right ventricular systolic function is normal. 7. Left atrial chamber dimension is mildly enlarged. 8. Right atrial chamber dimension is moderately enlarged. 9. There is trace mitral valve regurgitation. 10. There is mild tricuspid valve regurgitation. Left Ventricle Left ventricular chamber dimension is normal. Left ventricular systolic function is normal, estimated at 65-70%. There is moderately increased left ventricular wall thickness. The left ventricular diastolic function is grade I diastolic dysfunction. Right Ventricle Right ventricular chamber dimension is normal. Right ventricular systolic function is normal. Left Atria Left atrial chamber dimension is mildly enlarged. Right Atria Right atrial chamber dimension is moderately enlarged. Atrial Septum Intact interatrial septum visualized by color flow imaging. Aortic Valve The aortic valve is trileaflet. There is mild aortic valve sclerosis. There is no aortic valve stenosis. There is no aortic valve regurgitation. Mitral Valve The mitral valve has thickened leaflets. There is trace mitral valve regurgitation. Tricuspid Valve There is mild tricuspid valve regurgitation. Pericardium/Pleural There is no pericardial effusion. Inferior Vena Cava Normal inferior vena cava with >50% collapse upon inspiration consistent with normal right atrial pressure, 3 mmHg. Aorta The aortic root size at the sinus of Valsalva is normal. Left Ventricular Outflow Tract Name Value Normal LVOT 2D LVOT Diameter 2.0 cm LVOT Doppler LVOT Peak Gradient 5 mmHg LVOT Mean Gradient 3 mmHg LVOT VTI 30 cm LVOT VTI/AV VTI Ratio 0.9 LVOT Stroke Volume 95 ml LVOT CO 15.8 l/min LVOT CI 8.3 l/min/m2 Pulmonic Valve Name Value Normal
--- NOTE | ~2022-07-26 | XR_ITS ---
EXAMINATION: XR chest 2V DATE: 07/26/2022 11:37 INDICATION: Shortness of breath. Weakness. TECHNIQUE: Frontal and lateral views of the chest were obtained. COMPARISON: Chest 2 views 07/16/2022 FINDINGS: There is no pneumonia, pleural effusion, or pneumothorax. The heart size is normal. There i s mild chronic anterior wedging of a midthoracic vertebral body. IMPRESSION: 1. No acute cardiopulmonary disease. Reviewed, dictated and finalized at location A.
--- NOTE | 2022-07-26 10:56 | ECG_ITS ---
Measurements Intervals [place] Rate: 39 P: 48 MN: 144 QRS: 15 QRSD: 89 T: 34 QT: 486 QTc: 396 Interpretive Statements SINUS BRADYCARDIA POSSIBLE LEFT ATRIAL ENLARGEMENT DELAYED PRECORDIAL R/S TRANSITION ABNORMAL ECG COMPARED TO ECG 07/16/2022 16:02:51 HEART RATE HAS DECREASED Electronically Signed On 07-26-2022 12:12:06 CDT by David Pitts D.O.
[2022-07-26 11:20] LABS: Basophils Absolute Auto 0.1 K/mm3 (0.0-0.1); Basophils Percent Auto 0.5 % (0.2-1.2); Eosinophils Percent Auto 0.4 % (0-4.4); Hematocrit 41.3 % (37.0-47.0); Hemoglobin 14.1 g/dL (12.0-15.0); Immature Granulocyte Absolute 0.04 K/mm3 (0.00-0.031); Immature Granulocyte Percent A 0.4 % (0-0.5); Lymphocytes Absolute Auto 3.51 K/mm3 (0.9-3.2); Mean Corpuscular HGB Conc 34.1 g/dl (32-36); Mean Corpuscular Volume 90.8 fl (80-100); Mean Platelet Volume 9.5 fl (7.4-10.4); Monocytes Percent Auto 10.1 % (2.6-8.5); Neutrophils Absolute Auto 5.1 K/mm3 (1.3-6.7); Neutrophils Percent Auto 52.6 % (45.5-73.1); Platelet Count Result 278 k/mm3 (150-375); Red Blood Count 4.55 M/mm3 (4.2-5.4); Red Cell Distribution Width 13.6 % (11.5-14.5); White Blood Count 9.8 K/mm3 (4.5-10.0)
[2022-07-26 11:29] LABS: Alanine Aminotransferase 20 U/L (6-35); Albumin Level 4.3 g/dL (3.5-5.1); Alkaline Phosphatase 58 U/L (38-126); Anion Gap 8 mmol/L (8-16); Aspartate Amino Transferase 24 U/L (14-36); Bilirubin,Total 0.8 mg/dL (0.2-1.3); Blood Urea Nitrogen 14 mg/dL (7-17); Calcium 9.8 mg/dL (8.4-10.2); Carbon Dioxide 25 mmol/L (22-30); Chloride 94 mmol/L (98-107); Estimated CRCL calculation 45 ml/min; Estimated Glomerular Filt Rate > 60; Glucose 97 mg/dL (65-110); Potassium 4.2 mmol/L (3.4-5.0); Sodium 127 mmol/L (137-145)
[2022-07-26 11:36] LABS: Appearance Urine Cloudy (Clear); Bacteria Urine None Seen /hpf; Bilirubin Urine Negative (Negative); Blood Urine Negative (Negative); Color Urine Yellow (Yellow); Glucose Urine UA Negative (Negative); Ketones Urine Negative (Negative); Leukocyte Esterase Ur 2+ LEU/UL (Negative); Need Manual Microscopic Reviewed; Nitrate Urine Negative (Negative); Non Pathogenic Casts 0-2; Protein Urine Negative (Negative); RBC Urine 0-2 /hpf (0-2); Specific Grav Ur 1.008 (1.001-1.035); Squamous Epithelial Cell Urine Occasional /hpf (Few); Urobilinogen Urine 0.2 mg/dL (<2.0); WBC Urine 0-5 /hpf; pH Urine 8.5 (5.0-9.0)
[2022-07-26 11:38] LABS: Add Urine Microscopic? YES
[2022-07-26 14:23] LABS: Magnesium 2.1 mg/dL (1.6-2.3)
[2022-07-26 14:38] LABS: Troponin I < 0.012 ng/mL (0.000-0.034)
[2022-07-26] MEDS: SODIUM CHLORIDE 0.9% IV 1,000 ML 999 ML IV CONT (14:40)
[2022-07-26 14:47] LABS: Troponin I < 0.012 ng/mL (0.000-0.034)
--- NOTE | 2022-07-26 14:49 | ED.GENADULT ---
HPI - General Adult General Chief complaint: Weakness Stated complaint: weakness and shortness of breath x 2 weeks Time Seen by Provider: 07/26/22 13:34 History of Present Illness HPI narrative: Patient 81-year-old female who presents the emergency department with chief complaint of generalized malaise. Patient reports she was seen in the emergency department couple weeks ago and was found to have a slightly low sodium. Patient has been not feeling well since then and reports that she has been trying to increase her fluid intake but did take a trip to [place] and has been continually not feeling well the patient saw her primary care provider today who recommended the patient come to the emergency department as she has been bradycardic in the past but normally runs in the upper 40s to low 50s. Patient denies chest pain does report that she has had some intermittent shortness of breath the patient is not on a beta-john or calcium channel john Related Data Home Medications Medication Instructions Recorded Confirmed calcium phosphate 250 mg-vit D3 1 tablet PO DAILY 03/04/19 07/26/22 12.5 mcg (500 unit) chewable tablet (Citracal-D3 Gummies) biotin 5,000 mcg disintegrating 5,000 mcg PO DAILY 01/07/20 07/26/22 tablet psyllium husk 0.4 gram capsule 0.4 g PO DAILY PRN 03/08/21 07/26/22 (Metamucil) Allergies Allergy/AdvReac Type Severity Reaction Status Date / Time Sulfa (Sulfonamide Allergy Mild Hives Verified 07/26/22 10:54 Antibiotics) Review of Systems Review of Systems: A 10 system review of systems was completed on the patient and is negative except for what is stated in the HPI. Nursing and ancillary documentation was reviewed. [facility] Past Medical History Medical History Chronic low back pain Dyslipidemia Essential (primary) hypertension GERD without esophagitis Osteoarthritis Osteopenia Seasonal allergies Vitamin D deficiency Surgical History Surgical History History of cataract surgery 2014 - b/l History of hysterectomy History of left knee replacement 2000 History of tonsillectomy Family History Family History Other Diabetes mellitus Hypertension Social History Social History Smoking status: Never smoker Second hand tobacco smoke exposure: No Smoking end date: 02/26/93 Alcohol intake: current Alcohol use details: seldom Substance use: never Substance use type: does not use Lack of Transportation: No Lack of Food: Never True Current Housing: I Have Housing Concerned About Future Housing: No Difficulty Paying Gas/Electric Bills: No Difficulty Paying for Meds: No Currently Unemployed: No Education: High School Diploma/GED Difficulty w/ Childcare or Family Care: No Living arrangements: alone Occupation/Education: retired Gender identity (if verbalized by the patient): Female Agree to blood products: Yes Exam Narrative: GENERAL: Well-appearing, well-nourished, and in no acute distress. HEAD: Normocephalic, atraumatic. EYES: PERRLA and EOMI. ENT: Nares clear, no rhinorrhea or epistaxis. Mucous membranes moist. NECK: Supple. CHEST: Clear to auscultation. No respiratory distress. HEART: Bradycardic rate and regular rhythm. No murmur heard. Normal peripheral pulses. ABDOMEN: Soft, nontender, nondistended, normal active bowel sounds. EXTREMITIES: Normal range of motion. No edema. SKIN: Warm, dry, no rash. NEURO: No focal deficits. Alert and oriented x3. PSYCH: Normal mood and affect. Course Vital Signs Vital signs: Vital Signs Temperature 35.8 C L 07/26/22 10:56 Pulse Rate 42 L 07/26/22 10:56 Respiratory Rate 18 07/26/22 10:56 Blood Pressure 153/53 H 07/26
--- NOTE | 2022-07-26 15:52 | PM.CNCAR ---
Assessment and Plan Assessment and plan (1) Bradycardia: Code(s): R00.1 - Bradycardia, unspecified Status: Acute Assessment and Plan: This is chronic for the patient, and appears to be her baseline. She had an EKG from 07/2021 showing sinus bradycardia with rate of 46bpm. During my evaluation, her heart rate was in the high 50s to low 60s. TSH is WNL. Will obtain an echo to rule out underlying structural heart disease. Last echo in 2018 showed normal LVEF of 65-70%, mild enlargement of left atrium, moderate pulmonary hypertension. Continue to monitor on tele. Unclear if patient's symptoms are attributable to her bradycardia, however, I think it's unlikely as her symptoms started a few weeks ago and she has had baseline bradycardia longer than that (EKG dating back to 07/2021 with sinus bradycardia). Recommend treatment of her hyponatremia and then reassessment of her symptoms. Avoid any AV arturo blocking agents. Will need event monitor at the time of discharge. (2) Acute hyponatremia: Code(s): E87.1 - Hypo-osmolality and hyponatremia Status: Acute Assessment and Plan: Possible symptomatic hyponatremia. Management as per hospitalist. (3) Essential (primary) hypertension: Code(s): I10 - Essential (primary) hypertension Status: Acute Assessment and Plan: Currently, patient is hypertensive. SBP in the 180s-190s at the time of my evaluation. Will give one time dose of Hydralazine for now. History of Present Illness History of Present Illness Consult date/time: 07/26/22 15:52 Requesting physician: Liam Collazo MD Consult reason: Other (Bradycardia) Reason For Visit: weakness and shortness of breath x 2 weeks Narrative: We are consulted for bradycardia. This is an 81-year-old female with hypertension, dyslipidemia, osteopenia, chronic low back pain who presents with generalized weakness. Patient was seen in the [place] ER on 07/16/2022 for generalized weakness that started about 3 days prior to ER visit. She was found to be hyponatremic at that time. Given IVFs, and was offered admission, however, patient elected to go home. She presented to her PCP's office today with worsening generalized fatigue, shortness of breath, therefore, instructed to come to the ER again. Patient also reports dry mouth, pain in her legs. Daughter at bedside reports that her mother seemed a little mentally altered earlier today. Patient is normally very active at home. She lives by herself and does all her household activities and chores by herself without any functional limitations. Patient still noted to be hyponatremic on today's labs. EKG shows sinus bradycardia with HR 39bpm. Blood pressure is in the 180s systolics. Sodium is at 127. Troponins are negative x 2 TSH from 07/16/2022 is WNL. EKG from 07/16/2022 shows sinus bradycardia with rate of 45bpm. She had an EKG from 07/2021 showing sinus bradycardia with rate of 46bpm. Review of Systems Review of Systems: 8 point ROS obtained. Negative, unless stated in HPI. [facility] Past Medical History Medical History Chronic low back pain Dyslipidemia Essential (primary) hypertension GERD without esophagitis Osteoarthritis Osteopenia Seasonal allergies Vitamin D deficiency Surgical History Surgical History History of cataract surgery 2015 - b/l History of hysterectomy History of left knee replacement 2000 History of tonsillectomy Family History Family History Other Diabetes mellitus Hypertension Social History Social History Smoking status: Never smoker Second hand tobacco smoke exposure: No Smoking end date: 02/26/93 Alcohol intake: current Alcohol use details: seldom Substance use: never [place]
[2022-07-26] MEDS: hydrALAZINE HCL 20 MG/ML VIAL 10 MG IV PUSH (16:28)
--- NOTE | 2022-07-26 17:30 | ADMGEN ---
This patient, Laina Kirk, was admitted to IMU Room 204-01. Patient/family oriented to hospital policies and general routines including ID bracelet, bed and alarms, visiting hours, pain management, procedures, bathroom and other care routines, personal items, smoking policy, room service/diet, and visiting hours. Information on how to activate the Rapid Response Team has been discussed. Patient/Family are encouraged to report perceived risks to care and to ask questions if they do not understand what they are told or what they should do.
[2022-07-26] MEDS: SODIUM CHLORIDE 0.9% IV 1,000 ML 125 ML IV CONT (17:56)
--- NOTE | 2022-07-26 20:40 | PM.IMHP ---
H&P: HPI History of Present Illness Date/Time: 07/26/22 22:15 Chief Complaint: Weakness and shortness of breath. Narrative: This is a very pleasant 81-year-old female with hypertension, dyslipidemia, GERD, and chronic low back pain who presented to the emergency department for evaluation of weakness and shortness of breath for the last couple of weeks. The patient provides the following history. A couple weeks ago and she in her family were out of town and when they returned she was not feeling well with generalize weakness and fatigue. She noted that her blood pressure was low 1 morning and she was seen in the ED on 07/16/2022 for evaluation of the symptoms. Her vital signs were stable throughout her stay in the emergency department and she did not have orthostatic hypotension. Her labs were pretty unremarkable aside from a mild hyponatremia. She was given a L of normal saline prior to discharge and after shared medical decision making it was decided that the patient would go home with her daughter. She had a follow up appointment with Dr. Anaya today at which time she admitted she has not really felt any better and she was sent back to the ER. Aside from generalized weakness and malaise, she reports that her appetite has not been great and it sounds as though she has been having issues with swallowing breads, meats, and even her vitamins which is unusual. GERD symptoms seem to be getting worse and she has had quite a bit of belching and nausea this evening following her dinner. Her mouth feels dry even though she has been trying to push the water, drinking 64 oz a day which is quite a bit more than what she typically drinks. Also she reports that her blood pressure is in the low 100s at times and she admits that she will skip her blood pressure medications on those days as she has been having troubles with low blood pressures. Her weight has remained stable and she has not had any recent dosing changes in her medications. She denies syncope and near syncope. No fever, chills, or sweats. She denies cold and flu symptoms, cough, and sick contacts. She has not had chest pain, pleuritic pain, or palpitations. She has been bradycardic since arrival today but that is not necessarily unusual for her. She has not had vomiting, diarrhea, or dysuria. She has not noticed dark stools or bright red blood in the stools. She denies calf pain and lower extremity swelling though she does have aching discomfort in her legs and really throughout her body. It should be noted that she tested negative for influenza, RSV, and COVID during her last ER visit. Labs today reveal that she was still bit hyponatremic with a sodium of 127 though the remainder of her CMP and CBC were really unremarkable. She has since been admitted to the IMU for close monitoring given her bradycardia in addition to the aforementioned symptoms. At the time my evaluation her main complaint is that of GERD, dyspepsia, and belching. Review of Systems Review of Systems: Twelve systems were reviewed and are negative except for as per HPI. [facility], [facility] Past Medical History Medical History Chronic low back pain Dyslipidemia Essential (primary) hypertension GERD without esophagitis Osteoarthritis Osteopenia Seasonal allergies Vitamin D deficiency Surgical History Surgical History History of cataract surgery 2014 - /l History of hysterectomy History of left knee replacement 2000 History of tonsillectomy Family History Family History Other Diabetes mellitus Hypertension Social History Social History (Updated 07/27/22 @ 00:38 by Kimmie Garcia PA-C) Social History: Surrogate medical decision maker: Leanne Kirk, daughter. Code status: Full code. Smoking packs per day: 1 Smoking cigarettes per day: 20.0
[2022-07-26 21:18] LABS: Anion Gap 6 mmol/L (8-16); Blood Urea Nitrogen 17 mg/dL (7-17); Calcium 8.5 mg/dL (8.4-10.2); Carbon Dioxide 25 mmol/L (22-30); Chloride 101 mmol/L (98-107); Estimated CRCL calculation 33 ml/min; Estimated Glomerular Filt Rate 47; Glucose 104 mg/dL (65-110); Potassium 4.2 mmol/L (3.4-5.0); Sodium 132 mmol/L (137-145)
[2022-07-26 21:30] LABS: Troponin I < 0.012 ng/mL (0.000-0.034)
[2022-07-26] MEDS: CHOLECALCIFEROL 1,000 UNITS TABLET 5000 UNITS PO (22:25)
[2022-07-26] MEDS: lisinopriL 20 MG TABLET PO (22:25)
[2022-07-26] MEDS: PANTOPRAZOLE SODIUM IV 40 MG VIAL IV PUSH (22:25)
[2022-07-26] MEDS: CALCIUM CARBONATE (TUMS) 500 MG (200 MG ELEMENTAL) PO (22:25)
[2022-07-27] VITALS (10 sets, daily range): BP systolic 131–184; BP diastolic 52–69; PULSE 45–69; RESP 16–20; TEMP 36.1–36.8; O2SAT 95–100
[2022-07-27] MEDS: SODIUM CHLORIDE 0.9% IV 1,000 ML 75 ML IV CONT (05:11)
[2022-07-27 05:17] LABS: Anion Gap 4 mmol/L (8-16); Blood Urea Nitrogen 15 mg/dL (7-17); Calcium 8.4 mg/dL (8.4-10.2); Carbon Dioxide 25 mmol/L (22-30); Chloride 103 mmol/L (98-107); Estimated CRCL calculation 45 ml/min; Estimated Glomerular Filt Rate > 60; Glucose 92 mg/dL (65-110); Potassium 4.1 mmol/L (3.4-5.0); Sodium 132 mmol/L (137-145)
[2022-07-27 06:31] LABS: Anion Gap 8 mmol/L (8-16); Blood Urea Nitrogen 14 mg/dL (7-17); Calcium 8.5 mg/dL (8.4-10.2); Carbon Dioxide 22 mmol/L (22-30); Chloride 103 mmol/L (98-107); Estimated CRCL calculation 51 ml/min; Estimated Glomerular Filt Rate > 60; Glucose 91 mg/dL (65-110); Potassium 4.1 mmol/L (3.4-5.0); Sodium 133 mmol/L (137-145)
[2022-07-27 08:22] LABS: Sodium Urine Random 81 meq/L
[2022-07-27 08:23] LABS: Creatinine Urine 38.9 mg/dL
[2022-07-27 08:25] LABS: Urea Random Urine 287 MG/DL
--- NOTE | 2022-07-27 10:00 | PM.IMPN ---
Progress Note: A&P Assessment and Plan (1) Bradycardia: Code(s): R00.1 - Bradycardia, unspecified Status: Acute Assessment and Plan: Appreciate cardiology consult, they have signed off and do not think her bradycardia is new or contributing to her symptoms (2) Hyponatremia: Code(s): E87.1 - Hypo-osmolality and hyponatremia Status: Acute Assessment and Plan: Resolved, monitor (3) Generalized weakness: Code(s): R53.1 - Weakness Status: Acute Assessment and Plan: Likely multifactorial, PT/OT (4) Dysphagia: Code(s): R13.10 - Dysphagia, unspecified Status: Acute Assessment and Plan: Appreciate GI consult Consult ST, consider MBS (5) Gastroesophageal reflux: Code(s): K21.9 - Gastro-esophageal reflux disease without esophagitis Status: Acute Assessment and Plan: Cont PPI (6) Essential (primary) hypertension: Code(s): I10 - Essential (primary) hypertension Status: Acute Assessment and Plan: Blood pressures reviewed 07/27 Holding HCTZ d/t hyponatremia Plan DVT prophylaxis with SCDs GI prophylaxis not indicated Code status full code Subjective Date/time seen: 07/27/22 10:00 Interval history: 81 year old female with history of hypertension, hyperlipidemia, GERD and chronic back pain is presenting with weakness and shortness of breath for the last few weeks as well as dysphagia, found to have hyponatremia and bradycardia. No overnight events noted. No chest pain or shortness of breath. No nausea, vomiting or diarrhea. No fevers or chills. Review of Systems Review of Systems: 12 point review of systems was assessed and was negative except as noted in the HPI Exam Narrative: General: No acute distress, alert and oriented per baseline HEENT: Atraumatic, normocephalic, mucous membranes moist CV: Regular rate and rhythm, S1, S2 Lungs: Clear to auscultation bilaterally, no rales or crackles noted, no wheezes, good air entry Abdomen: Soft, nontender, nondistended Extremities: Normal to inspection Skin: No rashes noted, no lesions or wounds seen Psych: Euthymic, normal affect Objective Data Vital Signs Vital Signs: Vital Signs - 24 hr 07/26/22 10:56 07/26/22 11:27 07/26/22 11:25 Temperature 96.4 F L Pulse Rate 42 L 42 L 41 L Respiratory Rate 18 12 Blood Pressure 153/53 H 182/68 H Pulse Oximetry 100 97 Oxygen Delivery Room Air 07/26/22 12:13 07/26/22 12:16 07/26/22 12:31 Temperature Pulse Rate 45 L 42 L 47 L Respiratory Rate 15 17 13 Blood Pressure 171/76 H 174/69 H 170/70 H Pulse Oximetry 98 99 100 Oxygen Delivery 07/26/22 13:01 07/26/22 13:31 07/26/22 14:22 Temperature Pulse Rate 52 L 48 L 42 L Respiratory Rate 20 14 11 L Blood Pressure 142/76 H 160/81 H 165/91 H Pulse Oximetry 97 96 99 Oxygen Delivery 07/26/22 14:46 07/26/22 15:33 07/26/22 15:16 Temperature Pulse Rate 46 L 54 L 52 L Respiratory Rate 13 12 16 Blood Pressure 175/67 H 184/75 H 172/84 H Pulse Oximetry 97 96 98 Oxygen Delivery 07/26/22 15:31 07/26/22 15:46 07/26/22 16:01 Temperature Pulse Rate 51 L 59 L 50 L Respiratory Rate 11 L 18 13 Blood Pressure 184/75 H 195/74 H 190/98 H Pulse Oximetry 97 97 99 Oxygen Delivery 07/26/22 16:16 07/26/22 16:47 07/26/22 17:06 Temperature Pulse Rate 52 L 59 L 60 Respiratory Rate 15 17 15 Blood Pressure 195/80 H 150/82 H 150/82 H Pulse Oximetry 98 100 98 Oxygen Delivery 07/26/22 17:30 07/26/22 17:20 07/26/22 18:00 Temperature 97 F L Pulse Rate 60 69 Respiratory Rate 20 Blood Pressure 194/66 H Pulse Oximetry 98 Oxygen Delivery Room Air 07/26/22 19:22 07/26/22 20:00 07/26/22 20:00 Temperature 97.0 F L Pulse Rate 54 L 67 Respiratory Rate 18 Blood Pressure 143/59 H 158/65 H Pulse Oximetry 97 Oxygen Delivery 07/26/22 20:00
[2022-07-27] MEDS: PANTOPRAZOLE SODIUM IV 40 MG VIAL IV PUSH ×2 (10:09→20:36)
--- NOTE | 2022-07-27 13:53 | PM.PNCARD ---
Progress Note: A&P Assessment and Plan (1) Bradycardia: Code(s): R00.1 - Bradycardia, unspecified Status: Acute Assessment and Plan: This is chronic for the patient, and appears to be her baseline. She had an EKG from 07/2021 showing sinus bradycardia with rate of 46bpm. During my evaluation, her heart rate was in the high 50s to low 60s. TSH is WNL. Echo this admission shows LVEF 65-70%, trace MR, mild MR. Unclear if patient's symptoms are attributable to her bradycardia, however, I think it's unlikely as her symptoms started a few weeks ago and she has had baseline bradycardia longer than that (EKG dating back to 07/2021 with sinus bradycardia). Recommend treatment of her hyponatremia and then reassessment of her symptoms. Avoid any AV arturo blocking agents. Will need event monitor at the time of discharge. (2) Acute hyponatremia: Code(s): E87.1 - Hypo-osmolality and hyponatremia Status: Acute Assessment and Plan: Improving. Management as per Hospitalist. (3) Essential (primary) hypertension: Code(s): I10 - Essential (primary) hypertension Status: Acute Assessment and Plan: Initially hypertensive on admission, however blood pressure improving and in the 130s this afternoon. HCTZ is on hold due to hyponatremia. If blood pressure control needed, recommend ACEi/ARB or Amlodipine. Plan Cardiology will sign off at this time. Please call us back if needed. Subjective Date/time seen: 07/27/22 13:53 Interval history: Reason for visit: Bradycardia HPI: We are consulted for bradycardia. This is an 81-year-old female with hypertension, dyslipidemia, osteopenia, chronic low back pain who presents with generalized weakness. Patient was seen in the [place] ER on 07/16/2022 for generalized weakness that started about 3 days prior to ER visit. She was found to be hyponatremic at that time. Given IVFs, and was offered admission, however, patient elected to go home. She presented to her PCP's office today with worsening generalized fatigue, shortness of breath, therefore, instructed to come to the ER again. Patient also reports dry mouth, pain in her legs. Daughter at bedside reports that her mother seemed a little mentally altered earlier today. Patient is normally very active at home. She lives by herself and does all her household activities and chores by herself without any functional limitations. Patient still noted to be hyponatremic on today's labs. EKG shows sinus bradycardia with HR 39bpm. Blood pressure is in the 180s systolics. Sodium is at 127. Troponins are negative x 2. TSH from 07/16/2022 is WNL. EKG from 07/16/2022 shows sinus bradycardia with rate of 45bpm. She had an EKG from 07/2021 showing sinus bradycardia with rate of 46bpm. Date of service 07/27: Patient states she is feeling better. Na is improving. Getting EGD tomorrow for dysphagia. Tele with sinus bradycardia, however, no other arrhythmias. Review of Systems Review of Systems: All systems reviewed & are unremarkable except as noted in HPI and below (HPI) Exam Const: General: comfortable and no acute distress HENMT: Mouth: Yes dry mucous membranes Eyes: General: appearance normal, both eyes and all related structures Sclera: sclerae normal Neck: Neck: supple Resp: Effort & Inspection: normal respiratory effort Auscultation: clear to auscultation bilaterally Cardio: Rate: bradycardic Rhythm: regular rhythm Heart sounds: no murmurs Skin: General skin exam: normal color Neuro: Speech: normal speech Extrem: General: normal to inspection Psych: Mental Status: mental status grossly normal Affect: normal affect Objective Data Vital Signs Vital Signs: Vital Signs - 24 hr 07/26/22 14:22 07/26/22 14:46 07/26/22 15:33 Temperature Pulse Rate 42 L 46 L 54 L Respiratory Rate 11 L 13 12 Blood Pressure 165/91 H 175/67 H 184/75 H Pulse Oximetry 99 97 96 Oxygen Delivery 07/26/22 15:16
--- NOTE | 2022-07-27 17:30 | WPDGICN ---
Assessment and Plan Assessment and plan (1) Dysphagia: Code(s): R13.10 - Dysphagia, unspecified Status: Acute Assessment and Plan: She states that her main difficulty swallowing pills like her calcium tablet which is fairly large. She has not chronically had problems with swallowing food. She can drink water without regurgitating or without aspirating it. She was told that I would probably perform an EGD tomorrow although she also is scheduled for a modified barium swallow. (2) Gastroesophageal reflux: Code(s): K21.9 - Gastro-esophageal reflux disease without esophagitis Status: Acute Assessment and Plan: She has dealt with her acid reflux symptoms with [id number] medication is not currently taking a prescription PPI. (3) Generalized weakness: Code(s): R53.1 - Weakness Status: Acute Assessment and Plan: The main finding admission was that she had orthostatic hypotension and hyponatremia which may explain the fatigue she has been feeling. (4) Bradycardia: Code(s): R00.1 - Bradycardia, unspecified Status: Acute Assessment and Plan: Cardiology has seen her and evaluated her and has signed off. Plan Await results of modified barium swallow which is going to be done tomorrow morning. I will tentatively keep her on the schedule for EGD. I discussed the procedure with her and explained that she may or may not need esophageal dilatation. Told her that there is a risk of bleeding and perforation all those risks are quite low. GI Consult Note Consult date/time: 07/27/22 17:30 HPI: Laina Kirk is a 81 year old female Who was admitted 2 days ago when she presented to the emergency room with weakness and shortness of breath. She states she has been quite fatigued. She also has had a poor appetite. She states that she has been having acid reflux and belches quite a bit. She states that her mouth is very dry lately and it makes it quite difficult for her to swallow her pills. Food does not give her much difficulty swallowing. She believes that her weight is fairly stable. She has not had any significant change in bowel movements. She denies abdominal pain. He was admitted with hypo late tree me of the has been addressed and corrected. She has hypertension and chronic low back pain. Review of Systems Review of Systems: All systems reviewed & are unremarkable except as noted in HPI and below [facility] Past Medical History Medical History Chronic low back pain Dyslipidemia Essential (primary) hypertension GERD without esophagitis Osteoarthritis Osteopenia Seasonal allergies Vitamin D deficiency Surgical History Surgical History History of cataract surgery 2014 - b/l History of hysterectomy History of left knee replacement 2000 History of tonsillectomy Family History Family History Other Diabetes mellitus Hypertension Social History Social History Social History: Surrogate medical decision maker: Leanne Kirk, daughter. Code status: Full code. Smoking packs per day: 1 Smoking cigarettes per day: 20.0 Years smoked: 30 Smoking pack-years: 30.00 Smoking status: Former smoker Tobacco type: cigarettes Second hand tobacco smoke exposure: No Smoking end date: 02/26/93 Additional smoking assessment comments: quit 34 years ago Alcohol intake: never Alcohol use details: seldom Substance use: never Substance use type: does not use Lack of Transportation: No Lack of Food: Never True Current Housing: I Have Housing Concerned About Future Housing: No Difficulty Paying Gas/Electric Bills: No Difficulty Paying for Meds: No Currently Unemployed: No Education: High School Diploma/
--- NOTE | 2022-07-27 19:13 | PC.NURSE ---
This patient, Laina Kirk, was received from [ ] on 07/27/22 at 1610. Patient oriented to unit policies and routines. In bed resting with no complaints at this time.
[2022-07-27 22:49] LABS: IFOB Positive Control Positive; Immunochemical Fecal Occult Bl Negative (N)
[2022-07-28] VITALS (11 sets, daily range): BP systolic 115–180; BP diastolic 62–92; PULSE 44–72; RESP 16–18; TEMP 35.9–36.8; O2SAT 96–99
--- NOTE | 2022-07-28 07:36 | PM.IMPN ---
Progress Note: A&P Assessment and Plan (1) Hyponatremia: Code(s): E87.1 - Hypo-osmolality and hyponatremia Status: Acute Assessment and Plan: Resolved, monitor Would d/c soon and permanently d/c HCTZ (2) Generalized weakness: Code(s): R53.1 - Weakness Status: Acute Assessment and Plan: Likely multifactorial, PT/OT Improving (3) Dysphagia: Code(s): R13.10 - Dysphagia, unspecified Status: Acute Assessment and Plan: Appreciate GI consult, EGD planned 07/[address], MBS pending 07/28 (4) Gastroesophageal reflux: Code(s): K21.9 - Gastro-esophageal reflux disease without esophagitis Status: Acute Assessment and Plan: Cont PPI (5) Essential (primary) hypertension: Code(s): I10 - Essential (primary) hypertension Status: Acute Assessment and Plan: Blood pressures reviewed 07/28 Holding HCTZ d/t hyponatremia, would not restart at d/c (6) Bradycardia: Code(s): R00.1 - Bradycardia, unspecified Status: Acute Assessment and Plan: Appreciate cardiology consult, they have signed off and do not think her bradycardia is new or contributing to her symptoms Plan DVT prophylaxis with SCDs GI prophylaxis not indicated Code status full code Subjective Date/time seen: 07/28/22 07:36 Interval history: 81 year old female with history of hypertension, hyperlipidemia, GERD and chronic back pain is presenting with weakness and shortness of breath for the last few weeks as well as dysphagia, found to have hyponatremia and bradycardia. No overnight events noted. No chest pain or shortness of breath. No nausea, vomiting or diarrhea. No fevers or chills. Review of Systems Review of Systems: 12 point review of systems was assessed and was negative except as noted in the HPI Exam Narrative: General: No acute distress, alert and oriented per baseline HEENT: Atraumatic, normocephalic, mucous membranes moist CV: Regular rate and rhythm, S1, S2 Lungs: Clear to auscultation bilaterally, no rales or crackles noted, no wheezes, good air entry Abdomen: Soft, nontender, nondistended Extremities: Normal to inspection Skin: No rashes noted, no lesions or wounds seen Psych: Euthymic, normal affect Objective Data Vital Signs Vital Signs: Vital Signs - 24 hr 07/27/22 08:00 07/27/22 09:00 07/27/22 12:00 Temperature 98.3 F 97.0 F L Pulse Rate 62 45 L Respiratory Rate 20 16 Blood Pressure 184/65 H 131/53 L Pulse Oximetry 98 95 100 Oxygen Delivery Room Air 07/27/22 08:00 07/27/22 10:00 07/27/22 12:00 Temperature Pulse Rate 60 59 L 49 L Respiratory Rate Blood Pressure Pulse Oximetry Oxygen Delivery 07/27/22 08:00 07/27/22 12:00 07/27/22 14:00 Temperature Pulse Rate 49 L Respiratory Rate Blood Pressure Pulse Oximetry 100 100 Oxygen Delivery Room Air Room Air 07/27/22 16:26 07/27/22 19:32 07/27/22 20:00 Temperature 97.3 F L Pulse Rate 54 L 51 L 59 L Respiratory Rate 18 Blood Pressure 133/52 L Pulse Oximetry 98 Oxygen Delivery 07/27/22 20:00 07/28/22 00:00 07/28/22 04:00 Temperature Pulse Rate 51 L 72 59 L Respiratory Rate 18 Blood Pressure Pulse Oximetry 98 Oxygen Delivery Room Air 07/28/22 06:00 Temperature 98.2 F Pulse Rate 64 Respiratory Rate 18 Blood Pressure 143/92 H Pulse Oximetry 98 Oxygen Delivery Intake/Output Intake/Output: Intake & Output 07/25/22 07/26/22 07/27/22 07/28/22 23:59 23:59 23:59 23:59 Intake Total 1520 3390 Output Total 500 1200 400 Balance 1020 2190 -400 Meds/Results Medications: Active Medications Generic Name Dose Route Start Last Admin Trade Name Freq PRN Reason Stop Dose Admin Calcium Carbonate 200 mg 07/26/22 21:47 07/26/22 22:25 Calcium Carbonate (Tums) 500 Mg (200 Mg Elemental) PO 200 mg Q6H PRN Adminis
[2022-07-28] MEDS: PANTOPRAZOLE SODIUM IV 40 MG VIAL IV PUSH (08:56)
--- NOTE | 2022-07-28 10:03 | PCSTNOTE ---
Patient is in dialysis in the morning; unable to complete MBS. May try for this afternoon or may have to be tomorrow.
--- NOTE | 2022-07-28 12:28 | PCSTNOTE ---
Earlier note about patient in dialysis is error; staff who reported this information was referring to another patient.
--- NOTE | 2022-07-28 12:39 | PCPTNOTE ---
On 07/28/22, the student, [Sharyn Healy], provided care and completed [facility] on this patient. I have reviewed the student's documentation and agree with the findings.
--- NOTE | 2022-07-28 12:54 | PC.NURSE ---
To GI Lab. Report given to DAGO Chakraborty.
[2022-07-28] MEDS: LACTATED RINGERS 1,000 ML 150 ML IV CONT (13:08)
--- NOTE | 2022-07-28 13:24 | WPDANESEPPF ---
Anes - Initial Pre Proc Eval Procedure: Operation Date: 07/28/22 14:00 Proposed Procedures p Esophagogastroduodenoscopy - Baljinder Teran MD Date/Time: 07/28/22 13:24 Surgeon: Ania Watson MD Pre Op Diagnosis: generalized weakness,bradycardia,hyponatremia Patient Data Age: 81 Gender: F Height: 1.7 m Weight: 79 kg Last Vital Signs Temp 96.7 F L 07/28/22 13:11 Pulse 52 L 07/28/22 13:11 Resp 18 07/28/22 13:11 BP 115/70 07/28/22 13:11 Pulse Ox 99 07/28/22 13:11 O2 Del Method Room Air 07/28/22 13:11 Allergies Allergy/AdvReac Type Severity Reaction Status Date / Time Sulfa (Sulfonamide Allergy Mild Hives Verified 07/28/22 13:09 Antibiotics) Home Medications Medication Instructions Recorded Confirmed Type calcium phosphate 250 mg-vit D3 1 tablet PO DAILY 03/04/19 07/26/22 History 12.5 mcg (500 unit) chewable tablet (Citracal-D3 Gummies) biotin 5,000 mcg disintegrating 5,000 mcg PO DAILY 01/07/20 07/26/22 History tablet cholecalciferol (vitamin D3) 125 125 mcg PO 3XW #30 caps 01/25/21 07/26/22 Rx mcg (5,000 unit) capsule psyllium husk 0.4 gram capsule 0.4 g PO DAILY PRN Constipation 03/08/21 07/26/22 History (Metamucil) lisinopril 20 1 tablet PO BID #180 tabs 02/14/22 07/26/22 Rx mg-hydrochlorothiazide 12.5 mg tablet Laboratory Tests 07/27/22 18:31 Stl Occult Blood (IFOB) Negative (N) Patient hx anesthesia problems: none Family hx anesthesia problems: none Results Review: All pre-operative results and documents have been reviewed as part of the pre-operative evaluation. [facility] Past Medical History Medical History Chronic low back pain Dyslipidemia Essential (primary) hypertension GERD without esophagitis Osteoarthritis Osteopenia Seasonal allergies Vitamin D deficiency Surgical History Surgical History History of cataract surgery 2015 - b/l History of hysterectomy History of left knee replacement 2000 History of tonsillectomy Family History Family History Other Diabetes mellitus Hypertension Social History Social History Social History: Surrogate medical decision maker: Leanne Kirk, daughter. Code status: Full code. Smoking packs per day: 1 Smoking cigarettes per day: 20.0 Years smoked: 30 Smoking pack-years: 30.00 Smoking status: Former smoker Tobacco type: cigarettes Second hand tobacco smoke exposure: No Smoking end date: 02/26/93 Additional smoking assessment comments: quit 34 years ago Alcohol intake: never Alcohol use details: seldom Substance use: never Substance use type: does not use Lack of Transportation: No Lack of Food: Never True Current Housing: I Have Housing Concerned About Future Housing: No Difficulty Paying Gas/Electric Bills: No Difficulty Paying for Meds: No Currently Unemployed: No Education: High School Diploma/GED Difficulty w/ Childcare or Family Care: No Living arrangements: alone Occupation/Education: retired Spiritual care concerns: No Agree to blood products: Yes Anes - Eval Final PreProcedure Day of Procedure 07/28/22 13:24 Patient weight: normal Heart: regular rate and rhythm Lungs: clear to auscultation Airway: Mallampati scale class III Neurological: alert and oriented Last oral intake: >/= 8 hours ASA classification: III Emergent: no Anesthetic plan: proceed Anesthesia type and monitoring: general GIVS and standard monitoring Results Review: All pre-operative results and documents have been reviewed as part of the pre-operative evaluation. Informed Consent: The patient's anesthetic plan and its attendant risks and benefits were discussed with the patient/family/POA. Questions were
--- NOTE | 2022-07-28 14:08 | PM.DS ---
DS: Admitting Diagnosis Discharge Date July 28, 2022 Admitting Diagnosis Weakness and shortness of breath DS: Discharge Diagnosis Discharge Diagnosis (1) Hyponatremia: Code(s): E87.1 - Hypo-osmolality and hyponatremia Status: Acute Assessment and Plan: Resolved, monitor Would d/c soon and permanently d/c HCTZ (2) Generalized weakness: Code(s): R53.1 - Weakness Status: Acute Assessment and Plan: Likely multifactorial, PT/OT Improving (3) Dysphagia: Code(s): R13.10 - Dysphagia, unspecified Status: Acute Assessment and Plan: Appreciate GI consult, EGD planned 07/[address], MBS pending 07/28 (4) Gastroesophageal reflux: Code(s): K21.9 - Gastro-esophageal reflux disease without esophagitis Status: Acute Assessment and Plan: Cont PPI (5) Essential (primary) hypertension: Code(s): I10 - Essential (primary) hypertension Status: Acute Assessment and Plan: Blood pressures reviewed / Holding HCTZ d/t hyponatremia, would not restart at d/c (6) Bradycardia: Code(s): R00.1 - Bradycardia, unspecified Status: Acute Assessment and Plan: Appreciate cardiology consult, they have signed off and do not think her bradycardia is new or contributing to her symptoms Plan DVT prophylaxis with SCDs GI prophylaxis not indicated Code status full code DS: Summary Hospital Course Hospital Course: 81-year-old female with history of hypertension, hyperlipidemia, GERD and chronic low back pain presenting with weakness and shortness of breath being treated for hyponatremia and bradycardia. Cardiology was consulted and thought that her bradycardia was at baseline. Generalized weakness appeared to be multifactorial improved as her hyponatremia improved. Hydrochlorothiazide was discontinued. GI was consulted and performed EGD. EGD was essentially normal. PPI once a daily was recommended with advance diet as tolerated. She also had some dysphagia, this resolved. Please see above and med rec for details. Time Spent with Patient Time attestation: Total time spent providing and/or coordinating discharge services: Exam Narrative: General: No acute distress, alert and oriented per baseline HEENT: Atraumatic, normocephalic, mucous membranes moist CV: Regular rate and rhythm, S1, S2 Lungs: Clear to auscultation bilaterally, no rales or crackles noted, no wheezes, good air entry Abdomen: Soft, nontender, nondistended Extremities: Normal to inspection Skin: No rashes noted, no lesions or wounds seen Psych: Euthymic, normal affect DS: Data Data Completed and Pending Labs on day of discharge: Labs from last 24 hours 07/27/22 18:31 Stl Occult Blood (IFOB) Negative Discharge Plan Discharge Attending physician on discharge: Stephanie Bowman Consulting providers: Bulmaro Saldana; Bao Sequeira; Maxime Garcia; Kimmie Garcia Rafe M.; Osvaldo Montoya V. Discharging Clinician: Stephanie Bowman Patient Disposition: Home, Self-Care Activity: as tolerated Diet: as tolerated Discharge Instructions: You may eat and drink normally. Drink water to thirst and have your urine remain pale yellow to clear. Avoid more than one alcohol drink per day and drink more water when outside. Do not cut down on salt in your diet, you may eat as much sodium as you'd like. if you continue to have symptoms upon standing too quickly, you may try compression stockings and follow up with your primary care physician to discuss salt tabs. Patient Instructions: Antibiotic Form Stand Alone Forms: General Discharge Information Follow-up/Referrals: Bao Sequeira MD [Physician] - Sunita Anaya MD [Primary Care Provider] - Bulmaro Saldana MD [Physician] - Discharge Medications: Continued biotin 5,000 mcg tablet,disintegrating 5,000 mcg PO DAILY
--- NOTE | 2022-07-28 14:10 | PC.NURSE ---
Returned from GI Lab.
--- NOTE | 2022-07-28 14:44 | PCSTNOTE ---
Because patient is/has been in GI lab with anesthesia, MBS will wait until tomorrow morning.
[2022-07-28 15:23] LABS: Anion Gap 6 mmol/L (8-16); Blood Urea Nitrogen 11 mg/dL (7-17); Calcium 8.2 mg/dL (8.4-10.2); Carbon Dioxide 25 mmol/L (22-30); Chloride 103 mmol/L (98-107); Estimated CRCL calculation 59 ml/min; Estimated Glomerular Filt Rate > 60; Glucose 88 mg/dL (65-110); Sodium 134 mmol/L (137-145)
[2022-07-30 21:07] LABS: Osmolality, Urine 295 mOsm/kg (50-1200)
== END 2022-07-28 16:20 | disposition home or self-care (01) | DRG 641 ==
LOC: ANHED 15:27 → ANHIMU 16:50 → ANH2MED 07-28 07:41 → ANHIMU 07-31 10:40
PROVIDERS: Internal Medicine Gastroenterology; Physician Assistant; Admitting Provider Family Medicine; Emergency Provider Emergency Medicine; PCP Family Medicine; Visit Provider Student in an Organized Health Care Education/Training Program
PROC: 0DJ08ZZ Inspection of Upper Intestinal Tract, Via Natural or Artificial Opening Endoscopic (ICD-10-PCS; CPT 43235; principal; 2022-07-28 14:00)
DX: E87.1 Hypo-osmolality and hyponatremia (principal); R00.1 Bradycardia, unspecified; I10 Essential (primary) hypertension; E78.5 Hyperlipidemia, unspecified; E55.9 Vitamin D deficiency, unspecified; K21.9 Gastro-esophageal reflux disease without esophagitis; R13.10 Dysphagia, unspecified; M19.90 Unspecified osteoarthritis, unspecified site; M85.80 Other specified disorders of bone density and structure, unspecified site; M54.50 Low back pain, unspecified; G89.29 Other chronic pain; Z96.652 Presence of left artificial knee joint; Z87.891 Personal history of nicotine dependence
CPT/HCPCS: 36415; 71046; 80048; 80053; 81001; 82274; 82533; 82570; 83735; 83930; 83935; 84300; 84484; 84540; 85025; 87081; 93005; 93306; 96361; 96374; 96375; 96376; 97161; 97165; 99285; A9270; C9113; G0378; J0360; J2704; J7030; J7120

== ENCOUNTER 2022-08-02 13:27 | Outpatient (CLI) | payer MEDICARE, SELFPAY ==
--- NOTE | ~2022-08-02 | XR_ITS ---
MODIFIED ESOPHAGRAM HISTORY: Dysphagia. TECHNIQUE: Modified barium esophagram was performed by speech pathologist under radiologist fluorosco pic guidance. This was recorded on tape. The exam was reviewed on 08/02/2022 14:40 CDT. The DAP for this procedure was 0.755 Gycm2. Fluoroscopy time is 1.1 minutes. FINDINGS: Lateral projection of the cervical spine demonstrates normal alignment. There is normal s wallowing function without evidence for laryngeal penetration or aspiration. There is trace residue i n the vallecula and piriform sinus.. IMPRESSION: 1: No evidence for laryngeal penetration or aspiration. 2: Please refer to speech pathologist report for additional detail. Reviewed, dictated and finalized at location A.
--- NOTE | 2022-08-02 17:08 | REHSTMBS ---
Assessment and note entered by Eyl Carranza, SYSTEM PLANNING ENGINEER Modified Barium Swallow Evaluation Feeding Type Recommended Oral Food Consistency Regular, Level 7 Liquid Consistency Thin (0) ST Clinical Summary MODIFIED BARIUM SWALLOW STUDY Patient was seen for a Modified Barium Swallow study secondary to her complaint of having difficulty swallowing her calcium pill (now is cutting it in half), and occasional difficulty swallowing bread, reportedly more concerned in the last month. Today the patient was viewed in the lateral position to the level of C5/C6. She was presented with thin liquid contrast medium per cup, pudding mixed with semi-solid contrast medium, and crackers and fruit pieces coated with the semi- solid contrast medium. She exhibited good initiation of the swallows with no penetration or aspiration noted and no significant pharyngeal residue. Given a barium pill, it was noted that it took several attempts at pressing the pill off the back of the tongue into the pharynx where it momentarily remained until she took an additional swallow that cleared the pill. This is not an unusual way for others to swallow this pill. This does not say that patient is not having difficulty , just that it did not turn up on this evaluation at this time. Patient may remain on Regular Diet and Liquids. She was instructed to take pills with other, thicker liquids if helpful, or use applesauce or pudding to assist with movement through the pharynx, take small bites and sips, alternate liquids and solids, and to swallow hard when taking the pills. No additional Speech Therapy is indicated at this time. Thank you for this referral.
== END 2022-08-02 13:28 | disposition home or self-care (01) ==
LOC: ANHIMG 13:31
PROVIDERS: PCP Family Medicine; Visit Provider Student in an Organized Health Care Education/Training Program
DX: R13.10 Dysphagia, unspecified (principal)
CPT/HCPCS: 92611

== ENCOUNTER 2022-08-04 11:42 | Outpatient (CLI) | payer MEDICARE, SELFPAY ==
[2022-08-04 12:51] LABS: Anion Gap 3 mmol/L (8-16); Blood Urea Nitrogen 15 mg/dL (7-17); Calcium 9.4 mg/dL (8.4-10.2); Carbon Dioxide 33 mmol/L (22-30); Chloride 100 mmol/L (98-107); Estimated Glomerular Filt Rate > 60; Glucose 89 mg/dL (65-110); Potassium 4.2 mmol/L (3.4-5.0); Sodium 136 mmol/L (137-145)
== END 2022-08-04 11:43 | disposition home or self-care (01) ==
LOC: ANHLAB 11:44
PROVIDERS: PCP Family Medicine; Visit Provider Student in an Organized Health Care Education/Training Program
DX: E87.1 Hypo-osmolality and hyponatremia (principal)
CPT/HCPCS: 36415; 80048

== ENCOUNTER 2022-08-16 08:14 | Outpatient (CLI) | payer MEDICARE, SELFPAY ==
[2022-08-16 08:36] LABS: Alanine Aminotransferase 17 U/L (6-35); Albumin Level 3.9 g/dL (3.5-5.1); Alkaline Phosphatase 55 U/L (38-126); Anion Gap 5 mmol/L (8-16); Aspartate Amino Transferase 25 U/L (14-36); Bilirubin,Total 0.5 mg/dL (0.2-1.3); Blood Urea Nitrogen 21 mg/dL (7-17); Calcium 9.1 mg/dL (8.4-10.2); Carbon Dioxide 34 mmol/L (22-30); Chloride 98 mmol/L (98-107); Estimated Glomerular Filt Rate 60; Glucose 99 mg/dL (65-110); Sodium 137 mmol/L (137-145)
== END 2022-08-16 08:15 | disposition home or self-care (01) ==
PROVIDERS: PCP Family Medicine; Visit Provider Family Medicine
DX: I10 Essential (primary) hypertension (principal)
CPT/HCPCS: 36415; 80053

== ENCOUNTER 2022-09-19 11:30 | Outpatient (CLI) | payer MEDICARE, SELFPAY ==
[2022-09-20 00:05] LABS: Alanine Aminotransferase 18 U/L (6-35); Alkaline Phosphatase 55 U/L (38-126); Anion Gap 5 mmol/L (8-16); Aspartate Amino Transferase 36 U/L (14-36); Bilirubin,Total 0.4 mg/dL (0.2-1.3); Blood Urea Nitrogen 18 mg/dL (7-17); Calcium 9.3 mg/dL (8.4-10.2); Carbon Dioxide 31 mmol/L (22-30); Chloride 101 mmol/L (98-107); Estimated Glomerular Filt Rate 60; Glucose 91 mg/dL (65-110); Sodium 137 mmol/L (137-145)
== END 2022-09-19 11:31 | disposition home or self-care (01) ==
LOC: ANHGOSHLAB 11:32
PROVIDERS: PCP Family Medicine; Visit Provider Family Medicine
DX: E87.1 Hypo-osmolality and hyponatremia (principal); I10 Essential (primary) hypertension
CPT/HCPCS: 36415; 80053

== ENCOUNTER 2022-09-19 12:30 | Outpatient (RCR) | payer MEDICARE, SELFPAY ==
--- NOTE | 2022-08-16 08:22 | OPREHPOC ---
Outpatient Therapy Plan of Care This is a Multidisciplinary Plan of Care that may contain components documented by all disciplines (PT, OT, and ST.) PT Problem 1 PT Problem #1 Knowledge Deficit PT Goal 1 Goal Pt to be IND with issued HEP Target Visit 10 PT Goal 2 Goal Pt to report an understanding of community offering for continued fitness Target Visit 10 PT Problem 2 PT Problem #2 Pain PT Goal 1 Goal Pt to decline pain greater then 3/10 in the last week PT Problem 3 PT Problem #3 Impaired Functional Mobil PT Goal 1 Goal Pt to improve 2 min walk distance from 350ft to 400ft Target Visit 10 PT Goal 2 Goal Pt to decline any falls in the last month Target Visit 10 PT Problem 4 PT Problem #4 Impaired Strength PT Goal 1 Goal Pt to improve 5xSTS time from 28s to 20s. PT Goal 2 Goal Pt to ascend/descend stairs with single UE support Target Visit 10 PT Problem 5 PT Problem #5 Impaired Balance PT Goal 1 Goal Pt to improve SINGH score from 43/56 to 48/56 Target Visit 10
--- NOTE | 2022-08-16 08:22 | PTOPEVAL1 ---
Assessment and note entered by Selena Michel, PT, DPT Evaluation Information Assessment Status Evaluation Diagnosis weakness, history of falling, unsteadiness on feet Subjective Information Pt states recently she has become increasingly weak. She reports generalized achy feeling throughout her BLEs. She declines any falls in the last year. Reported Pain Level Pain Score 5: Self Report Assessment PT Clinical Summary Laina presents to therapy today for her initial evaluation with a diagnosis of weakness and unsteadiness on feet. Today she demonstrates generalized weakness through her BLEs, decreased static standing balance, gait deviations, and decreased gait speed. She requires additional time to complete the 5xSTS and has a decreased speed during the 2 min walk test. Skilled therapy services are indicated to address the deficits noted above, to improve balance, improve safety, and to promote unlimited functional mobility. Plan of Care Interventions Gait Training,Hot Pack/Cold Pack,Manual Therapy, Neuro Re-education,Patient/Caregiver Educati, Therapeutic Activities,Therapeutic Exercise PT Services Indicated Yes Treatment Frequency and 2x/wk for 5 wks Duration These treatments will address the objective and functional deficits as defined above. The patient will be advanced safely and appropriately in order for the patient to progress towards his/her prior level of function. Additional exercises will be introduced and as well as a comprehensive home exercise program upon discharge, if needed, ?to ensure carryover of functional gains achieved in the clinic. This treatment plan has been reviewed and agreement upon by the patient.
--- NOTE | 2022-08-31 16:34 | PCPTNOTE ---
On 08/31/22, the student Nell Bauman, provided care and completed [facility] documentation on this patient. I have reviewed the student's documentation and agree with the findings.
--- NOTE | 2022-09-12 15:09 | PCPTNOTE ---
On 09/12/22, the student, Michelle Bauman provided care and completed [employer] documentation on this patient. I have reviewed the student's documentation and agree with the findings.
--- NOTE | 2022-09-19 13:25 | PTOPDC ---
Assessment and note entered by Selena Michel, PT, DPT Evaluation Information Assessment Status Discharge Diagnosis weakness, history of falling, unsteadiness on feet Subjective Information Pt states he is getting stronger with her walking. She feels like her balance has improved as well. Reported Pain Level Pain Score 4: Self Report Assessment PT Clinical Summary Laina presents to therapy today for her progress report following 10 visits of skilled therapy with a diagnosis of weakness and unsteadiness on feet. Today she demonstrates continues weakness of her BLEs, she has not improved her gait speed. She did improve her SINGH score from 43/56 to 52/56. Pt states she would like to be done with therapy and continue her exercises on her own at this time.
== END 2022-09-20 09:56 | disposition home or self-care (01) ==
LOC: ANHGOSHPT 12:30
PROVIDERS: PCP Family Medicine; Visit Provider Family Medicine
DX: R26.81 Unsteadiness on feet (principal); R53.1 Weakness; Z91.81 History of falling
CPT/HCPCS: 36415; 80053; 97110; 97112; 97140; 97161; 97530

== ENCOUNTER → 2022-09-27 12:19 | Outpatient (CLI) | payer MEDICARE, SELFPAY ==
--- NOTE | ~2022-09-27 | MM_ITS ---
EXAMINATION: MM screening mireille BI w wally HISTORY: Screening mammogram TECHNIQUE: Craniocaudal and mediolateral oblique 3-D tomosynthesis images were obtained and synthetic 2-D images were generated. CAD analysis was submitted and interpreted. COMPARISON: 07/11/2021, 03/13/2020, 02/03/2019 bilateral screening mammogram examinations BREAST PARENCHYMAL COMPOSITION: There are scattered areas of fibroglandular density. FINDINGS: There is no evidence of suspicious mass, calcification, or architectural distortion to sugg est malignancy in either breast. There has been no suspicious interval change. IMPRESSION: 1. No mammographic evidence of malignancy. 2. Recommend routine screening mammography in one year. BI-RADS Category 1: Negative Reviewed, dictated and finalized at location A.
== END ==
PROVIDERS: PCP Family Medicine; Visit Provider Family Medicine
DX: Z12.31 Encounter for screening mammogram for malignant neoplasm of breast (principal)
CPT/HCPCS: 77063; 77067

== ENCOUNTER 2023-03-01 09:00 | Outpatient (CLI) | payer MEDICARE, SELFPAY ==
[2023-03-01 09:35] LABS: Basophils Percent Auto 0.6 % (0.2-1.2); Eosinophils Absolute Auto 0.1 K/mm3 (0-0.3); Eosinophils Percent Auto 1.4 % (0-4.4); Hematocrit 42.1 % (37.0-47.0); Hemoglobin 13.3 g/dL (12.0-15.0); Immature Granulocyte Absolute 0.02 K/mm3 (0.00-0.031); Immature Granulocyte Percent A 0.3 % (0-0.5); Lymphocytes Absolute Auto 2.03 K/mm3 (0.9-3.2); Lymphocytes Percent Auto 31.1 % (18.3-44.2); Mean Corpuscular HGB Conc 31.6 g/dl (32-36); Mean Platelet Volume 10.2 fl (7.4-10.4); Monocytes Absolute Auto 0.7 K/mm3 (0.1-0.6); Monocytes Percent Auto 10.9 % (2.6-8.5); Neutrophils Absolute Auto 3.6 K/mm3 (1.3-6.7); Neutrophils Percent Auto 55.7 % (45.5-73.1); Platelet Count Result 220 k/mm3 (150-375); Red Blood Count 4.43 M/mm3 (4.2-5.4); Red Cell Distribution Width 13.9 % (11.5-14.5); White Blood Count 6.5 K/mm3 (4.5-10.0)
[2023-03-01 09:50] LABS: Alanine Aminotransferase 19 U/L (6-35); Alkaline Phosphatase 71 U/L (38-126); Anion Gap 6 mmol/L (8-16); Aspartate Amino Transferase 29 U/L (14-36); Bilirubin,Total 0.6 mg/dL (0.2-1.3); Blood Urea Nitrogen 22 mg/dL (7-17); Calcium 9.1 mg/dL (8.4-10.2); Carbon Dioxide 32 mmol/L (22-30); Chloride 101 mmol/L (98-107); Cholesterol 192 mg/dL (0-200); Creatine Kinase 77 U/L (30-135); Estimated Glomerular Filt Rate 60; Glucose 100 mg/dL (65-110); HDL Direct 43 mg/dL; Potassium 4.1 mmol/L (3.4-5.0); Sodium 139 mmol/L (137-145); Triglycerides 104 mg/dL (<150)
[2023-03-01 10:01] LABS: LDL Cholesterol Direct 107 mg/dL
[2023-03-01 10:42] LABS: Vitamin D 25 Hydroxy 73.6 ng/mL
[2023-03-01 10:45] LABS: Vitamin B12 > 1000.0 pg/mL (239-931)
== END 2023-03-01 09:01 | disposition home or self-care (01) ==
LOC: ANHLAB 09:02
PROVIDERS: PCP Family Medicine; Visit Provider Family Medicine
DX: E78.5 Hyperlipidemia, unspecified (principal); E55.9 Vitamin D deficiency, unspecified; I10 Essential (primary) hypertension; E53.8 Deficiency of other specified B group vitamins; M79.18 Myalgia, other site
CPT/HCPCS: 36415; 80053; 80061; 82306; 82550; 82607; 84443; 85025

== ENCOUNTER 2023-03-15 07:12 | Emergency (ER) | payer MEDICARE, SELFPAY ==
--- NOTE | ~2023-03-15 | XR_ITS ---
EXAMINATION: [id number] DATE: 03/15/2023 08:35 INDICATION: Left rib pain. TECHNIQUE: A frontal view of the chest and 2 views on 4 radiographs of the left ribs were obtained. COMPARISON: Chest 2 views 07/26/2022 FINDINGS: Calcified pulmonary nodules are consistent with old granulomatous disease. No pleural effus ion or pneumothorax. The heart size is normal. IMPRESSION: 1. No rib fracture. Reviewed, dictated and finalized at location E. OILER IMPRESSION: 1. No rib fracture.
[2023-03-15 07:23] VITALS: BP 119/53; PULSE 70; RESP 16; TEMP 36.6; O2SAT 99
[2023-03-15 08:00] VITALS: BP 115/50; PULSE 54; RESP 16; TEMP 36.6; O2SAT 97
[2023-03-15 09:00] VITALS: BP 135/56; PULSE 50; RESP 16; TEMP 36.6; O2SAT 99
--- NOTE | 2023-03-15 09:48 | ED.GENADULT ---
HPI - General Adult General Chief complaint: Wound/Laceration Stated complaint: L side pain Time Seen by Provider: 03/15/23 08:53 History of Present Illness HPI narrative: Laina Kirk is an 82 y/o female who presents with reports of stretching in her closet to get something out and she felt a pop in her left lower ribs on the anterior aspect 4 days ago. She states that the pain has continued and is worse with certain movements/ and with palpation. Denies chest pain/ shortness of breath/ denies fall/ or any significant trauma. Related Data Home Medications Medication Instructions Recorded Confirmed calcium phosphate 250 mg-vit D3 1 tablet PO DAILY 03/04/19 09/19/22 12.5 mcg (500 unit) chewable tablet (Citracal-D3 Gummies) biotin 5,000 mcg disintegrating 5,000 mcg PO DAILY 01/07/20 09/19/22 tablet psyllium husk 0.4 gram capsule 0.4 g PO DAILY PRN Constipation 03/08/21 09/19/22 (Metamucil) Allergies Allergy/AdvReac Type Severity Reaction Status Date / Time Sulfa (Sulfonamide Allergy Mild Hives Verified 02/06/23 11:23 Antibiotics) Review of Systems Review of Systems: CONSTITUTIONAL: Denies fever, chills, or sweats. EYES: Denies visual changes, redness, or discharge. ENT: Denies rhinorrhea, congestion, sore throat, or otalgia. CARDIOVASCULAR: Denies chest pain, palpitations, or edema. RESPIRATORY: Denies cough or dyspnea. GASTROINTESTINAL: Denies abdominal pain, nausea, vomiting, or diarrhea. GENITOURINARY: Denies dysuria or hematuria. SKIN: Denies rash or itching. MUSCULOSKELETAL: Denies back pain, joint pain, or myalgia.Complains of pain to the left lower anterior chest wall. NEUROLOGIC: Denies headache, numbness, dizziness, or weakness. PSYCHIATRIC: Denies anxiety or depression. [facility] Past Medical History Medical History Acute hyponatremia (~06/2022) Chronic low back pain COVID (~07/2021) Dyslipidemia Essential (primary) hypertension GERD without esophagitis Osteoarthritis Osteopenia Seasonal allergies Vitamin D deficiency Surgical History Surgical History History of cataract surgery 2015 - b/l History of esophageal dilatation (~07/2022) History of hysterectomy History of left knee replacement 2000 History of tonsillectomy Family History Family History Other Diabetes mellitus Hypertension Social History Social History Social History: Surrogate medical decision maker: Leanne Kirk, daughter. Code status: Full code. Smoking packs per day: 1 Smoking cigarettes per day: 20.0 Years smoked: 30 Smoking pack-years: 30.00 Smoking status: Former smoker Tobacco type: cigarettes Second hand tobacco smoke exposure: No Smoking end date: 02/26/79 Additional smoking assessment comments: quit 34 years ago Alcohol intake: never Alcohol use details: seldom Substance use: never Substance use type: does not use Lack of Transportation: No Lack of Food: Never True Current Housing: I Have Housing Concerned About Future Housing: No Difficulty Paying Gas/Electric Bills: No Difficulty Paying for Meds: No Currently Unemployed: No Education: High School Diploma/GED Difficulty w/ Childcare or Family Care: No Living arrangements: alone Occupation/Education: retired Spiritual care concerns: No Agree to blood products: Yes Exam Narrative: GENERAL: Well-appearing, well-nourished, and in no acute distress. HEAD: Normocephalic, atraumatic. EYES: PERRLA and EOMI. ENT: Nares clear, no rhinorrhea or epistaxis. Mucous membranes moist. Oropharynx without tonsillar hypertrophy exudate or other lesions. Bilateral TMs pearly taylor non bulging NECK: Supple. No adenopathy or masses. No carotid bruits or JVD CHEST: Clear to auscultation. N
[2023-03-15 10:00] VITALS: BP 134/58; PULSE 50; RESP 16; TEMP 36.6; O2SAT 98
[2023-03-15] MEDS: LIDOCAINE 5% PATCH 1 PATCH TRANSDERM (10:07)
[2023-03-15] MEDS: CYCLOBENZAPRINE HCL 10 MG TABLET PO (10:07)
[2023-03-15] MEDS: ACETAMINOPHEN 500 MG TABLET 1000 MG PO (10:08)
[2023-03-15] MEDS: NAPROXEN 375 MG TABLET PO (10:08)
== END 2023-03-15 10:30 | disposition home or self-care (01) ==
PROVIDERS: Emergency Provider Nurse Practitioner Family; PCP Family Medicine
DX: S29.011A Strain of muscle and tendon of front wall of thorax, initial encounter (principal); I10 Essential (primary) hypertension; E78.5 Hyperlipidemia, unspecified; E55.9 Vitamin D deficiency, unspecified; K21.9 Gastro-esophageal reflux disease without esophagitis; M19.90 Unspecified osteoarthritis, unspecified site; M85.80 Other specified disorders of bone density and structure, unspecified site; Z86.16 Personal history of COVID-19; Z98.42 Cataract extraction status, left eye; Z98.41 Cataract extraction status, right eye; Z90.710 Acquired absence of both cervix and uterus; Z96.652 Presence of left artificial knee joint; Z87.891 Personal history of nicotine dependence; X50.9XXA Other and unspecified overexertion or strenuous movements or postures, initial encounter
CPT/HCPCS: 71101; 99283; A9270

== ENCOUNTER 2023-10-23 14:46 | Outpatient (CLI) | payer MEDICARE, SELFPAY ==
--- NOTE | ~2023-10-23 | XR_ITS ---
EXAMINATION: XR lumbar spine min 4V DATE: 10/23/2023 15:06 INDICATION: Low back pain. Right leg pain. TECHNIQUE: 5 views of lumbar spine were obtained. COMPARISON: Lumbar spine radiographs 01/17/2021 FINDINGS: There is 24 degrees dextroscoliosis of lumbar spine. There is 3 mm retrolisthesis of L2 on L3 and L3 on L4. Vertebral body heights are normal. There is severely decreased disc height from L2-L 3 through L4-L5. There is multilevel severe facet joint osteoarthritis. IMPRESSION: 1. Severe lumbar spondylosis. 2. Lumbar dextroscoliosis. Reviewed, dictated and finalized at location A.
== END 2023-10-23 14:47 ==
LOC: GOSHIMG 14:47
PROVIDERS: PCP Family Medicine; Visit Provider Family Medicine
DX: M43.06 Spondylolysis, lumbar region (principal); M41.86 Other forms of scoliosis, lumbar region
CPT/HCPCS: 72110

== ENCOUNTER 2023-11-05 11:41 | Emergency (ER) | payer MEDICARE, SELFPAY ==
--- NOTE | ~2023-11-05 | XR_ITS ---
XR chest 2V Ordering provider: Trav Dinero APRN History: 82 years Female with . cough, sob, weakness . Comparison: July 26, 2022 FINDINGS: MEDIASTINUM: The cardiac silhouette is not enlarged. LUNGS: No infiltrates, effusions or pneumothorax. Emphysematous changes of the lungs. OTHER: No free air under the diaphragm. Degenerative changes of the spine. IMPRESSION: No acute cardiopulmonary pathology. Reviewed, dictated and finalized at location A.
[2023-11-05 11:49] VITALS: BP 132/52; PULSE 55; RESP 24; TEMP 36.3; O2SAT 99
--- NOTE | 2023-11-05 12:04 | ED.FEMALEGU ---
HPI - Female Genitourinary General Chief complaint: Urogenital-Female Stated complaint: Uti Symptoms Time Seen by Provider: 11/05/23 12:05 Source: patient Mode of arrival: ambulatory Limitations: no limitations History of Present Illness HPI Narrative: Laina is an 82-year-old female patient presenting to the clinic today with complaints of possible UTI. She reports she is having urinary frequency since last night. Denies any burning with urination. Also reporting some body aches, anxiety, nonproductive cough, and shortness of breath. No known fever or chills. No documented history of COPD or asthma. Patient is a former smoker -smoked for 1 pack x 30 years. Daughter is concerned that she may be having withdrawal symptoms from the gabapentin. Patient had discontinued the gabapentin after taking 300 mg daily 2 days ago. She has a refill of the gabapentin and prednisone prescribed and is currently waiting at the pharmacy. Has been taking the medications for right posterior hip pain/sciatica. Related Data Home Medications Medication Instructions Recorded Confirmed calcium phosphate 250 mg-vit D3 1 tablet PO DAILY 03/04/19 11/05/23 12.5 mcg (500 unit) chewable tablet (Citracal-D3 Gummies) biotin 5,000 mcg disintegrating 5,000 mcg PO DAILY 01/07/20 11/05/23 tablet psyllium husk 0.4 gram capsule 0.4 g PO DAILY PRN Constipation 03/08/21 11/05/23 (Metamucil) Allergies Allergy/AdvReac Type Severity Reaction Status Date / Time Sulfa (Sulfonamide Allergy Mild Hives Verified 11/05/23 12:04 Antibiotics) Review of Systems Review of Systems: Pertinent positives per HPI. Patient denies any fever, chills, rash, headache, visual changes, dizziness, chest pain, palpitations, nausea, vomiting, diarrhea, constipation, abdominal pain. [facility] Past Medical History Medical History Acute hyponatremia (~06/2022) Chronic low back pain COVID (~07/2021) Dyslipidemia Essential (primary) hypertension GERD without esophagitis Osteoarthritis Osteopenia Seasonal allergies Vitamin D deficiency Surgical History Surgical History History of cataract surgery 2014 - /l History of esophageal dilatation (~07/2022) History of hysterectomy History of left knee replacement 2000 History of tonsillectomy Family History Family History Other Diabetes mellitus Hypertension Social History Social History Social History: Surrogate medical decision maker: Leanne Kirk, daughter. Code status: Full code. Smoking packs per day: 1 Smoking cigarettes per day: 20.0 Years smoked: 30 Smoking pack-years: 30.00 Smoking status: Former smoker Tobacco type: cigarettes Second hand tobacco smoke exposure: No Smoking end date: 02/26/79 Additional smoking assessment comments: quit 34 years ago Alcohol intake: never Alcohol use details: seldom Substance use: never Substance use type: does not use Lack of Transportation: No Lack of Food: Never True Current Housing: I Have Housing Concerned About Future Housing: No Difficulty Paying Gas/Electric Bills: No Difficulty Paying for Meds: No Currently Unemployed: No Education: High School Diploma/GED Difficulty w/ Childcare or Family Care: No Living arrangements: alone Occupation/Education: retired Spiritual care concerns: No Agree to blood products: Yes Comments At the time of my signature, I reviewed and agree with the nursing past medical, surgical, social, and family history. There is no relevant family history pertinent to the patient complaint. Exam Narrative: General: Well-developed, well nourished, in no apparent distress Head: Normocephalic, atraumatic Eyes: Pupils equally round and reactiv
[2023-11-05 12:36] LABS: EDINFLUASCREEN Negative (Negative); EDINFLUBSCREEN Negative (Negative)
[2023-11-05 14:29] LABS: EDUAAPPEAR Clear; EDUABILI 1+ (Negative); EDUABLOOD Negative (Negative); EDUACOLOR1 Yellow; EDUAGLUCOSE Negative (Negative); EDUAKETONE 1+ (Negative); EDUALEUKO 1+ (Negative); EDUANITRATE Negative (Negative); EDUAPROTEIN 1+ (Negative); EDUAUROBILI 0.2
== END 2023-11-05 14:40 | disposition home or self-care (01) ==
PROVIDERS: Emergency Provider Nurse Practitioner Family; PCP Family Medicine
DX: N30.00 Acute cystitis without hematuria (principal); J06.9 Acute upper respiratory infection, unspecified; F19.939 Other psychoactive substance use, unspecified with withdrawal, unspecified; Z20.822 Contact with and (suspected) exposure to COVID-19; Z87.891 Personal history of nicotine dependence; E78.5 Hyperlipidemia, unspecified; I10 Essential (primary) hypertension; K21.9 Gastro-esophageal reflux disease without esophagitis; M19.90 Unspecified osteoarthritis, unspecified site; M85.80 Other specified disorders of bone density and structure, unspecified site; Z96.652 Presence of left artificial knee joint; Z86.16 Personal history of COVID-19
CPT/HCPCS: 71046; 81003; 87086; 87426; 87804; 99213; G0463

== ENCOUNTER 2023-11-20 13:39 | Outpatient (CLI) | payer MEDICARE, SELFPAY ==
[2023-11-20 20:01] LABS: Alanine Aminotransferase 12 U/L (6-35); Albumin Level 3.5 g/dL (3.5-5.1); Alkaline Phosphatase 85 U/L (38-126); Anion Gap 6 mmol/L (4-12); Aspartate Amino Transferase 32 U/L (14-36); Bilirubin,Total 0.4 mg/dL (0.2-1.3); Blood Urea Nitrogen 15 mg/dL (7-17); Calcium 8.9 mg/dL (8.4-10.2); Carbon Dioxide 31 mmol/L (22-30); Chloride 93 mmol/L (98-107); Estimated Glomerular Filt Rate 53; Glucose 121 mg/dL (65-110); Potassium 3.9 mmol/L (3.4-5.0); Sodium 130 mmol/L (137-145)
== END 2023-11-20 13:40 | disposition home or self-care (01) ==
LOC: ANHGOSHLAB 13:41
PROVIDERS: PCP Family Medicine; Visit Provider Family Medicine
DX: I10 Essential (primary) hypertension (principal); N28.9 Disorder of kidney and ureter, unspecified
CPT/HCPCS: 36415; 80053

== ENCOUNTER 2023-12-27 10:58 | Outpatient (CLI) | payer MEDICARE, SELFPAY ==
[2023-12-27 18:56] LABS: Alanine Aminotransferase 20 U/L (6-35); Albumin Level 4.1 g/dL (3.5-5.1); Alkaline Phosphatase 64 U/L (38-126); Anion Gap 6 mmol/L (4-12); Aspartate Amino Transferase 41 U/L (14-36); Bilirubin,Total 0.6 mg/dL (0.2-1.3); Blood Urea Nitrogen 16 mg/dL (7-17); Calcium 9.5 mg/dL (8.4-10.2); Carbon Dioxide 32 mmol/L (22-30); Chloride 100 mmol/L (98-107); Estimated Glomerular Filt Rate 60; Glucose 97 mg/dL (65-110); Potassium 4.4 mmol/L (3.4-5.0); Sodium 138 mmol/L (137-145)
== END 2023-12-27 10:59 | disposition home or self-care (01) ==
LOC: ANHGOSHLAB 11:00
PROVIDERS: PCP Family Medicine; Visit Provider Family Medicine
DX: N28.9 Disorder of kidney and ureter, unspecified (principal); I10 Essential (primary) hypertension
CPT/HCPCS: 36415; 80053

== ENCOUNTER 2024-01-28 09:59 | Inpatient (IN) | payer MEDICARE, SELFPAY ==
[2024-01-28] VITALS (16 sets, daily range): BP systolic 118–180; BP diastolic 50–80; PULSE 56–79; RESP 13–19; TEMP 36.4–37; O2SAT 91–98; BMI 28.5
--- NOTE | ~2024-01-28 | CT_ITS ---
CT head without contrast Indication: Status post fall Technique: Serial scans were obtained through the brain without the administration of contrast. Dose reduction technique was used on this scan by utilizing automated exposure control and iterative recon struction technique. The dose-length product (DLP) was 605.33 mGy-cm. Findings: There is no evidence of intracranial hemorrhage, mass lesion, or acute infarct. There is bi frontal atrophy versus bifrontal chronic subdural hygromas. There is no evidence of edema, mass eff ect or midline shift. The visualized paranasal sinuses and mastoid air cells are clear. Impression: No intracranial hemorrhage, mass, or acute infarct. 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 Reviewed, dictated and finalized at location . ALER Impression: No intracranial hemorrhage, mass, or acute infarct. 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
--- NOTE | ~2024-01-28 | XR_ITS ---
EXAMINATION: XR abdomen/kub 1V DATE: 02/02/2024 10:30 INDICATION: Constipation. TECHNIQUE: A supine view of the abdomen was obtained. COMPARISON: Abdomen radiographs 12/05/2007 FINDINGS: There are no dilated loops of bowel. There is a large volume of stool in the colon. IMPRESSION: 1. Nonobstructive bowel gas pattern. Reviewed, dictated and finalized at location A. RMATICS NURSE SPECIALIST
--- NOTE | ~2024-01-28 | CT_ITS ---
EXAMINATION: CT thoracic lumbar wo con DATE: 01/28/2024 10:42 INDICATION: Back pain post fall TECHNIQUE: Computed tomography (CT) of the thoracic and lumbar spine was performed without intravenou s contrast. Additional sagittal and coronal reconstructions were performed. Automated exposure contro l and iterative reconstruction technique were employed. The dose-length product was 1528.73 mGy-cm. COMPARISON: None FINDINGS: Thoracic spine: 13 degrees lower thoracic levoscoliosis. Thoracic vertebral body heights are normal. No acute fractu re. Multilevel mild to moderate thoracic disc height loss most prominent at T5-T6. There is heterotop ic ossification at the ligamentum flavum contributing to mild central canal stenosis most prominent a t T9-T10 and to lesser degree at a few additional levels in the mid and lower thoracic spine. There i s also multilevel thoracic facet osteoarthritis, severe bilaterally at T2-T3 and T3-T4, moderate on t he left and severe on the right at T10-T11 through T12-L1 and mild to moderate in the remainder of th e thoracic spine. There is multilevel mild neural foraminal stenosis throughout the thoracic spine. M ild emphysema with dependent atelectasis in both lungs. Calcified left lower lobe nodule and calcifie d left hilar and mediastinal lymph nodes consistent with old granulomatous disease. Lumbar spine: 30 degrees lumbar dextroscoliosis. L1 compression fracture with negligible anterior vertebral body he ight loss. Remaining lumbar vertebral body heights are normal. Moderate to severe intra-abdominal dis c height loss at L2-L3 and left-sided predominant disc height loss at L3-L4. Moderate right-sided pre dominant disc height loss at L4-L5 and mild disc height loss at L5-S1. Multilevel disc bulges through out the lumbar spine with mild central canal stenosis at L1-L2, L2-L3 and L4-L5 and moderate disc hei ght loss at L3-L4. There is multilevel bilateral moderate to severe lumbar facet osteoarthritis. Ther e is moderate neural foraminal stenosis on the left at L2-L3, L3-L4 and L4-L5 and on the right at L3- L4 and L4-L5. 2 mm nonobstructing stone at the lower pole the left kidney. Paravertebral soft tissues are unremarkable. Moderate osteoarthritis at the bilateral sacroiliac joints. IMPRESSION: 1. Acute appearing L1 compression fracture with minimal anterior vertebral body height loss. No other acute osseous abnormality the thoracic or lumbar spine. 2. Mild S-shaped scoliosis of the lumbar and lower thoracic spine with mild to moderate thoracic and severe lumbar spondylosis. 3. 2 mm nonobstructing left renal stone. Reviewed, dictated and finalized at location A. GING TECHNOLOGIES DIRECTOR
--- NOTE | ~2024-01-28 | XR_ITS ---
EXAMINATION: XR chest 1V portable DATE: 01/28/2024 13:52 INDICATION: Syncope. Fall. TECHNIQUE: frontal view of the chest was obtained. COMPARISON: Chest radiograph dated 11/15/23 FINDINGS: Calcified nodule at the infrahilar left lower lung zone consistent with old granulomatous disease. No other airspace opacities, pulmonary edema, pleural effusion or pneumothorax. The cardiomediastinal s ilhouette is normal. Partially visualized lumbar dextroscoliosis with severe spondylosis. IMPRESSION: 1. No acute cardiopulmonary disease. Reviewed, dictated and finalized at location A. ESSIVE ART THERAPIST
--- NOTE | ~2024-01-28 | MR_ITS ---
EXAMINATION: MR lumbar spine wo con DATE: 02/01/2024 14:05 INDICATION: L1 compression fracture. TECHNIQUE: Magnetic resonance imaging (MRI) of the lumbar spine was performed without intravenous con trast. Sequences included sagittal T2-weighted FSE, sagittal T2-weighted FS FSE, sagittal T1-weighted FSE, and axial T2-weighted FSE. COMPARISON: Lumbar spine MRI 03/14/2021, CT 01/28/2024 FINDINGS: There is 17 degrees dextroscoliosis of lumbar spine. There is a burst fracture of L1 with 2 /5 loss of height, low signal fracture lines, and edema-like marrow signal intensity. There is 3 mm r etrolisthesis of L2 on L3 and L3 on L4. There is severely decreased disc height at L2-L3 and L3-L4, m oderately decreased disc height at L4-L5, and mildly decreased disc height at L5-S1. The distal spina l cord signal intensity is normal. The conus medullaris is at L1. There is a transverse fracture of S 3 with edema-like marrow signal intensity. The following disc levels are specifically discussed: L1-L2: The disc is bulging. There is severe bilateral facet joint osteoarthritis. There is mild bilat eral neural foraminal stenosis. There is no central canal stenosis. L2-L3: The disc is bulging and has an annular fissure. There is mild bilateral facet joint osteoarthr itis. There is mild bilateral neural foraminal stenosis. There is mild central canal stenosis. L3-L4: The disc is bulging and has an annular fissure. There is moderate bilateral facet joint osteoa rthritis. There is mild bilateral neural foraminal stenosis. There is mild central canal stenosis. L4-L5: The disc is bulging and has an annular fissure. There is severe right and mild left facet join t osteoarthritis. There is severe right and mild left neural foraminal stenosis. There is mild centra l canal stenosis. There is severe stenosis of right lateral recess. L5-S1: The disc is bulging. There is severe bilateral facet joint osteoarthritis. There is mild bilat eral neural foraminal stenosis. There is mild central canal stenosis. IMPRESSION: 1. Acute/subacute L1 burst fracture. 2. Acute/subacute S3 fracture. 3. Severe lumbar spondylosis. 4. Lumbar dextroscoliosis. Reviewed, dictated and finalized at location A. CTOR OF GUIDANCE IN [employer]
--- NOTE | ~2024-01-28 | CT_ITS ---
EXAMINATION: CT cervical spine wo con DATE: 01/28/2024 10:43 INDICATION: Fall with posterior head injury TECHNIQUE: Computed tomography (CT) of the cervical spine was performed without intravenous contrast. Automated exposure control and iterative reconstruction technique were employed. The dose-length pro duct was 264.89 mGy-cm. COMPARISON: None FINDINGS: 2 mm anterolisthesis C7 on T1. Severe osteoarthritis at the atlantoaxial articulation. Vertebral body heights are normal. No acute fracture. Severe disc height loss with degenerative endplate changes an d severe uncovertebral osteoarthritis at C3-C4 through C6-C7. Posterior disc osteophyte complexes res ulting in multilevel mild central canal stenosis at these levels. Mild disc height loss at C2-C3 and C7-T1. Severe osteoarthritis bilaterally at C7-T1 with likely solid fusion on the left. There is sy tional fusion across the left C2-C3 facet joint with prominent hypertrophic changes. There is multile scarlett moderate facet osteoarthritis throughout the remainder of the cervical spine. There is moderate n eural foraminal stenosis on the right at C3-C4 and bilaterally at C4-C5 through C6-C7. Mild neural fo raminal stenosis on the left at C2-C3, the right at C3-C4 and bilaterally at C7-T1. Atherosclerotic c alcification is at the bilateral carotid bulbs. Cervical soft tissues are otherwise unremarkable. Min imal biapical pleural parenchymal scarring. IMPRESSION: 1. Severe cervical spondylosis. No acute osseous abnormality. Reviewed, dictated and finalized at location A. ICE CASE MANAGER
--- NOTE | 2024-01-28 13:27 | ED.FALL ---
HPI - Fall General Chief Complaint: Fall Stated Complaint: Fell/back and head pain Time Seen by Provider: 01/28/24 12:35 History of Present Illness HPI Narrative: 83-year-old female presenting after syncopal event. States that she was trying to walk up some steps last night when she suddenly blacked out. She was unable to grab the rail and the next thing she knew she was on the ground. Complains of a lot of lower back pain. Related Data Home Medications Medication Instructions Recorded Confirmed calcium 250 mg (phosphate)-vit D3 1 tablet PO DAILY 03/04/19 01/28/24 12.5 mcg (500 unit) chewable tablet (Citracal-D3 Gummies) psyllium husk 0.4 gram capsule 0.4 g PO DAILY PRN Constipation 03/08/21 01/28/24 (Metamucil) acetaminophen 500 mg tablet 1,000 mg PO TID PRN pain 12/27/23 01/28/24 (Tylenol Extra Strength) [id number] 4 mg-folic acid 1 tablet PO DAILY 12/27/23 01/28/24 200 mcg-vit K 25 mcg-lutein tablet (Centrum Minis Women 50 Plus) biotin 10,000 mcg chewable tablet 10,000 mcg PO DAILY 01/28/24 01/28/24 (Hair, Skin and Nails (biotin)) gabapentin 100 mg capsule 100 mg PO BID 01/28/24 01/28/24 gabapentin 100 mg tablet 200 mg PO HS 01/28/24 01/28/24 Allergies Allergy/AdvReac Type Severity Reaction Status Date / Time Sulfa (Sulfonamide Allergy Mild Hives Verified 01/28/24 10:09 Antibiotics) Review of Systems Review of Systems: All systems reviewed & are unremarkable except as noted in HPI and below PMFSH Past Medical History Medical History Acute hyponatremia (~06/2022) Chronic low back pain COVID (~07/2021) Degenerative disc disease Dyslipidemia Essential (primary) hypertension GERD without esophagitis Osteoarthritis Osteopenia Seasonal allergies Vitamin D deficiency Surgical History Surgical History History of cataract surgery 2014 - /l History of esophageal dilatation (~07/2022) History of hysterectomy History of left knee replacement 2000 History of tonsillectomy Family History Family History Other Diabetes mellitus Hypertension Social History Social History Social History: Surrogate medical decision maker: Leanne Kirk, daughter. Code status: Full code. Smoking packs per day: 1 Smoking cigarettes per day: 20.0 Years smoked: 30 Smoking pack-years: 30.00 Smoking status: Former smoker Tobacco type: cigarettes Second hand tobacco smoke exposure: No Smoking end date: 02/26/79 Additional smoking assessment comments: quit 34 years ago Alcohol intake: never Alcohol use details: seldom Substance use: never Substance use type: does not use Do You Feel Safe in your Home?: Yes Lack of Transportation: No Lack of Food: Never True Current Housing: I Have Housing Concerned About Future Housing: No Difficulty Paying Gas/Electric Bills: No Difficulty Paying for Meds: No Currently Unemployed: No Education: High School Diploma/GED Difficulty w/ Childcare or Family Care: No Living arrangements: alone Occupation/Education: retired Spiritual care concerns: No Agree to blood products: Yes Exam Narrative: GENERAL: Nontoxic, no acute distress, pleasant cooperative HEAD: Normocephalic, atraumatic. EYES: PERRLA and EOMI. ENT: Grossly unremarkable NECK: Supple. CHEST: No respiratory distress. HEART: Regular rate and rhythm EXTREMITIES: Normal range of motion SKIN: Warm, dry, no rash. NEURO: Alert and oriented x3. PSYCH: Normal mood and affect. Course Vital Signs Vital signs: Vital Signs Temperature 97.6 F 01/28/24 10:07 Pulse Rate 62 01/28/24 10:07 Respiratory Rate 18 01/28/24 10:07 Blood Pressure 139/50 L 01/28/24 10:07 Pulse Oximetry 98 01/28/24 10:07 Oxygen Delivery Room Air 01/28/24 10:07 Temperature 98.3 F 01/29/24 13:55 Pulse Rate 65 01/29/24 16:00 Respiratory Rate 16 01/29/24 13:55 Blood Pressure 129/59 L 01/29/24 13:55 Pulse Oximetry 92 01/29/24 13:55 Oxygen Delivery Room Air 01/29/24 08:00 MDM - Fall MDM Narrative Medical decision making narrative: 83-year-old female presenting with lower back pain after a fall from a syncopal episode yesterday. Vitals within normal limits. EKG per my interpretation shows normal sinus rhythm, no ST elevations or depressions. Blood work without significant abnormalities. CT brain and C-spine show no acute abnormalities. CT lumbar shows an acute L1 fracture. Admission for syncope, pain control, PT OT and placement. Spoke with the hospitalist who has accepted her for admission. Patient is agreeable this plan. Differential Diagnosis Differential diagnosis: Likely syncope, compression fracture and other ( fall, pain, ambulatory dysfunction) Medical Records Attestation: I reviewed the patient's medical records. Lab Data Attestation: I reviewed the patient's lab results. 01/28/24 13:38 01/28/24 13:38 Labs: Lab Results 01/28/24 01/28/24 01/28/24 Range/Units 13:38 13:51 16:38 WBC 9.3 (4.5-10.0) K/mm3 RBC 4.12 L (4.2-5.4) M/mm3 Hgb 12.8 (12.0-15.0) g/dL Hct 39.1 (37.0-47.0) % MCV 94.9 (80-100) fl MCH 31.1 (26-34) pg MCHC 32.7 (32-36) g/dl RDW 13.6 (11.5-14.5) % Plt Count 211 (150-375) k/mm3 MPV 10.7 H (7.4-10.4) fl Immature Gran % (Auto) 0.3 (0-0.5) % Neut % (Auto) 74.8 H (45.5-73.1) % Lymph % (Auto) 15.4 L (18.3-44.2) % [place] % (Auto) 7.7 (2.6-8.5) % Eos % (Auto) 1.5 (0-4.4) % Baso % (Auto) 0.3 (0.2-1.2) % Lymph # (Auto) 1.44 (0.9-3.2) K/mm3 [place] # (Auto) 0.7 H (0.1-0.6) K/mm3 Eos # (Auto) 0.1 (0-0.3) K/mm3 Baso # (Auto) 0.0 (0.0-0.1) K/mm3 Abs Immat Gran (auto) 0.03 (0.00-0.031) K/mm3 Absolute Neuts (auto) 7.0 H (1.3-6.7) K/mm3 Absolute Nucleated RBC 0.000 (0.0-0.012) K/mm3 Nucleated RBC % 0.0 (0.0-0.2) % PT 13.3 (11.1-14.7) Seconds INR 1.0 APTT 26.3 (22.3-36.8) Seconds Sodium 136 L (137-145) mmol/L Potassium 4.3 (3.4-5.0) mmol/L Chloride 103 (98-107) mmol/L Carbon Dioxide 29 (22-30) mmol/L Anion Gap 4 (4-12) mmol/L BUN 19 H (7-17) mg/dL Creatinine 0.60 L (0.7-1.0) mg/dL Estim Creat Clear Calc 57 ml/min Estimated GFR > 60 (59 - ) Glucose 97 (65-110) mg/dL Calcium 9.4 (8.4-10.2) mg/dL Magnesium 2.2 (1.6-2.3) mg/dL Total Bilirubin 0.9 (0.2-1.3) mg/dL AST 38 H (14-36) U/L ALT 18 (6-35) U/L Alkaline Phosphatase 66 (38-126) U/L Troponin I < 0.012 Cancelled (0.000-0.034) ng/mL NT-Pro-B Natriuret Pep (19.9-100) pg/mL Total Protein 8.0 (6.3-8.2) g/dL Albumin 4.4 (3.5-5.1) g/dL Urine Color Yellow (Yellow) Urine Appearance Turbid H (Clear) Urine pH 8.0 (5.0-9.0) Ur Specific [place] 1.015 (1.001-1.035) Urine Protein Negative (Negative) mg/dL Urine Glucose (UA) Negative (Negative) mg/dL Urine Ketones Negative (Negative) mg/dL Ur Blood (Man) Negative (Negative) Urine Nitrate Negative (Negative) Urine Bilirubin Negative (Negative) Urine Urobilinogen 0.2 (<2.0) mg/dL Add Ur Microanalysis Reviewed Leukocyte Esterase Rfl Negative (Negative) MARSHA/UL Urine RBC 0-2 (0-2) /hpf Urine WBC 0-5 (0-3) /hpf Ur Squamous Epith Cells None seen (Few) /hpf Amorphous Sediment Moderate H (None) Urine Bacteria None seen /hpf Urine Casts 0-2 01/28/24 Range/Units 19:24 WBC (4.5-10.0) K/mm3 RBC (4.2-5.4) M/mm3 Hgb (12.0-15.0) g/dL Hct (37.0-47.0) % MCV (80-100) fl MCH (26-34) pg MCHC (32-36) g/dl RDW (11.5-14.5) % Plt Count (150-375) k/mm3 MPV (7.4-10.4) fl Immature Gran % (Auto) (0-0.5) % Neut % (Auto) (45.5-73.1) % Lymph % (Auto) (18.3-44.2) % [place] % (Auto) (2.6-8.5) % Eos % (Auto) (0-4.4) % Baso % (Auto) (0.2-1.2) % Lymph # (Auto) (0.9-3.2) K/mm3 [place] # (Auto) (0.1-0.6) K/mm3 Eos # (Auto) (0-0.3) K/mm3 Baso # (Auto) (0.0-0.1) K/mm3 Abs Immat Gran (auto) (0.00-0.031) K/mm3 Absolute Neuts (auto) (1.3-6.7) K/mm3 Absolute Nucleated RBC (0.0-0.012) K/mm3 Nucleated RBC % (0.0-0.2) % PT (11.1-14.7) Seconds INR APTT (22.3-36.8) Seconds Sodium (137-145) mmol/L Potassium (3.4-5.0) mmol/L Chloride (98-107) mmol/L Carbon Dioxide (22-30) mmol/L Anion Gap (4-12) mmol/L BUN (7-17) mg/dL Creatinine (0.7-1.0) mg/dL Estim Creat Clear Calc ml/min Estimated GFR (59 - ) Glucose (65-110) mg/dL Calcium (8.4-10.2) mg/dL Magnesium (1.6-2.3) mg/dL Total Bilirubin (0.2-1.3) mg/dL AST (14-36) U/L ALT (6-35) U/L Alkaline Phosphatase (38-126) U/L Troponin I < 0.012 (0.000-0.034) ng/mL NT-Pro-B Natriuret Pep 430 H (19.9-100) pg/mL Total Protein (6.3-8.2) g/dL Albumin (3.5-5.1) g/dL Urine Color (Yellow) Urine Appearance (Clear) Urine pH (5.0-9.0) Ur Specific [place] (1.001-1.035) Urine Protein (Negative) mg/dL Urine Glucose (UA) (Negative) mg/dL Urine Ketones (Negative) mg/dL Ur Blood (Man) (Negative) Urine Nitrate (Negative) Urine Bilirubin (Negative) Urine Urobilinogen (<2.0) mg/dL Add Ur Microanalysis Leukocyte Esterase Rfl (Negative) MARSHA/UL Urine RBC (0-2) /hpf Urine WBC (0-3) /hpf Ur Squamous Epith Cells (Few) /hpf Amorphous Sediment (None) Urine Bacteria /hpf Urine Casts Imaging Data Radiologist's impression: ITS Impressions Cervical Spine CT 01/28/24 10:48 IMPRESSION: 1. Severe cervical spondylosis. No acute osseous abnormality. Head CT 01/28/24 10:48 Impression: No intracranial hemorrhage, mass, or acute infarct. 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 Thoracic/Lumbar Spine CT 01/28/24 10:59 IMPRESSION: 1. Acute appearing L1 compression fracture with minimal anterior vertebral body height loss. No other acute osseous abnormality the thoracic or lumbar spine. 2. Mild S-shaped scoliosis of the lumbar and lower thoracic spine with mild to moderate thoracic and severe lumbar spondylosis. 3. 2 mm nonobstructing left renal stone. Critical Care Time Critical Care Time Critical Care Time: No Discharge Plan Discharge Clinical Impression: Syncope, Ground-level fall, Compression fracture of L1 lumbar vertebra Patient Disposition: Still a Patient Condition: Stable
--- NOTE | 2024-01-28 13:29 | ECG_ITS ---
Test Date: 2024-01-28 14:04:39 Measurements Intervals [place] Rate: 65 P: 58 AL: 162 QRS: 25 QRSD: 89 T: 36 QT: 403 QTc: 420 Interpretive Statements SINUS RHYTHM No previous ECG available for comparison Electronically Signed On 01-28-2024 14:31:20 [employer] by Niranjan Mcdonald M.D.
[2024-01-28] MEDS: SODIUM CHLORIDE 0.9% IV 1,000 ML 999 ML IV CONT (13:51)
[2024-01-28] MEDS: MORPHINE SULFATE (*CRX) 2 MG/ML INJ IV PUSH (13:52)
[2024-01-28] MEDS: ACETAMINOPHEN 325 MG TABLET 650 MG PO (13:52)
[2024-01-28 13:53] LABS: Basophils Percent Auto 0.3 % (0.2-1.2); Eosinophils Absolute Auto 0.1 K/mm3 (0-0.3); Eosinophils Percent Auto 1.5 % (0-4.4); Hematocrit 39.1 % (37.0-47.0); Hemoglobin 12.8 g/dL (12.0-15.0); Immature Granulocyte Absolute 0.03 K/mm3 (0.00-0.031); Immature Granulocyte Percent A 0.3 % (0-0.5); Lymphocytes Absolute Auto 1.44 K/mm3 (0.9-3.2); Lymphocytes Percent Auto 15.4 % (18.3-44.2); Mean Corpuscular HGB Conc 32.7 g/dl (32-36); Mean Corpuscular Hemoglobin 31.1 pg (26-34); Mean Corpuscular Volume 94.9 fl (80-100); Mean Platelet Volume 10.7 fl (7.4-10.4); Monocytes Absolute Auto 0.7 K/mm3 (0.1-0.6); Monocytes Percent Auto 7.7 % (2.6-8.5); Neutrophils Percent Auto 74.8 % (45.5-73.1); Platelet Count Result 211 k/mm3 (150-375); Red Blood Count 4.12 M/mm3 (4.2-5.4); Red Cell Distribution Width 13.6 % (11.5-14.5); White Blood Count 9.3 K/mm3 (4.5-10.0)
[2024-01-28 14:02] LABS: Prothrombin Time 13.3 Seconds (11.1-14.7)
[2024-01-28 14:03] LABS: Partial Thromboplastin Time 26.3 Seconds (22.3-36.8)
[2024-01-28] MEDS: GABAPENTIN 100 MG CAPSULE PO (14:05)
[2024-01-28 14:09] LABS: Alanine Aminotransferase 18 U/L (6-35); Albumin Level 4.4 g/dL (3.5-5.1); Alkaline Phosphatase 66 U/L (38-126); Anion Gap 4 mmol/L (4-12); Aspartate Amino Transferase 38 U/L (14-36); Bilirubin,Total 0.9 mg/dL (0.2-1.3); Blood Urea Nitrogen 19 mg/dL (7-17); Calcium 9.4 mg/dL (8.4-10.2); Carbon Dioxide 29 mmol/L (22-30); Chloride 103 mmol/L (98-107); Estimated CRCL calculation 57 ml/min; Estimated Glomerular Filt Rate > 60; Glucose 97 mg/dL (65-110); Magnesium 2.2 mg/dL (1.6-2.3); Potassium 4.3 mmol/L (3.4-5.0); Sodium 136 mmol/L (137-145)
[2024-01-28 14:18] LABS: Troponin I < 0.012 ng/mL (0.000-0.034)
[2024-01-28 15:00] LABS: Add Urine Microscopic? YES; Appearance Urine Turbid (Clear); Bacteria Urine None Seen /hpf; Bilirubin Urine Negative (Negative); Blood Urine Negative (Negative); Color Urine Yellow (Yellow); Glucose Urine UA Negative (Negative); Ketones Urine Negative (Negative); Leukocyte Esterase Ur Negative LEU/UL (Negative); Need Manual Microscopic Reviewed; Nitrate Urine Negative (Negative); Non Pathogenic Casts 0-2; Protein Urine Negative (Negative); RBC Urine 0-2 /hpf (0-2); Specific Grav Ur 1.015 (1.001-1.035); Squamous Epithelial Cell Urine None Seen /hpf (Few); Urobilinogen Urine 0.2 mg/dL (<2.0); WBC Urine 0-5 /hpf (0-3)
[2024-01-28 15:02] LABS: Amorphous Sediment Urine Moderate
--- NOTE | 2024-01-28 18:35 | PM.IMHP ---
H&P: HPI History of Present Illness Date/Time: 01/28/24 18:35 Chief Complaint: Fall, Back Pain Narrative: 83 y/o F presents here with back pain post-fall with PMH of chronic low back pain, degenerative disc disease, hypertension, GERD, osteopenia, osteoarthritis, and vitamin-D deficiency. The patient presents here from home for further evaluation of back pain after she sustained a ground level fall yesterday. She reports that she was walking up 2 steps last night around 18:00. She reports she had only stepped up one step suddenly had an episode of loss of consciousness. She had no precipitating symptoms. She reports that she was unable to grab the hand railing next to her and has no recollection of fall. Fall was onto the concrete floor. Suspected head strike, now has bump to the top left of her head and mild tenderness to same region. Patient woke up on the floor with pain in her lower back. Today she has developed some stiffness in her neck without decreased or painful ROM. Patient also had 2 episodes of dizziness. First was while she was being helped into bed for the night and the second occurred while she was laying in the stretcher in the ER. She described it as the room spinning, lasted for approximately 1 minute and resolved without intervention. Denies chest pain, shortness, diaphoresis, nausea/vomiting. Denies focal weakness, focal numbness, changes in speech, trouble swallowing, changes in gait. Patient does report she has had sinus drainage. Recent increase in amlodipine from 5 mg daily to 10 mg daily approximately 2 weeks ago. No other medication changes. Initial VS at presentation: 97.6, HR 62, R 18, 139/50, and 98% on RA. ED workup showed: No leukocytosis, no anemia, normal coags, sodium 136, creatinine 0.6 and normal GFR, initial troponin negative, and UA was turbid with moderate amorphous sediment otherwise nor abnormalities. Initial EKG showed sinus rhythm with a rate of 65. C-spine CT showed severe cervical spondylosis without acute osseous abnormality. Head CT showed no intracranial hemorrhage, mass, or acute infarcts. 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 CT thoracic/lumbar spine showed acute appearing L1 compression fracture with minimal anterior vertebral body height loss, no other acute osseous abnormality in the thoracic or lumbar spine, mild S shaped scoliosis, and a 2 mm nonobstructing left renal stone. CXR showed no acute cardiopulmonary disease. Review of Systems Review of Systems: All systems reviewed & are unremarkable except as noted in HPI and below PMFSH Past Medical History Medical History Acute hyponatremia (~06/2022) Chronic low back pain COVID (~07/2021) Degenerative disc disease Dyslipidemia Essential (primary) hypertension GERD without esophagitis Osteoarthritis Osteopenia Seasonal allergies Vitamin D deficiency Surgical History Surgical History History of cataract surgery 2014 - b/l History of esophageal dilatation (~07/2022) History of hysterectomy History of left knee replacement 2000 History of tonsillectomy Family History Family History Other Diabetes mellitus Hypertension Social History Social History Social History: Surrogate medical decision maker: Leanne Kirk, daughter. Code status: Full code. Smoking packs per day: 1 Smoking cigarettes per day: 20.0 Years smoked: 30 Smoking pack-years: 30.00 Smoking status: Former smoker Tobacco type: cigarettes Second hand tobacco smoke exposure: No Smoking end date: 02/26/79 Additional smoking assessment comments: quit 34 years ago Alcohol intake: never Alcohol use details: seldom Substance use: never Substance use type: does not use Do You Feel Safe in your Home?: Yes Lack of Transportation: No Lack of Food: Never True Current Housing: I Have Housing Concerned About Future Housing: No Difficulty Paying Gas/Electric Bills: No Difficulty Paying for Meds: No Currently Unemployed: No Education: High School Diploma/GED Difficulty w/ Childcare or Family Care: No Living arrangements: alone Occupation/Education: retired Spiritual care concerns: No Agree to blood products: Yes Meds Home Medications and Allergies Home Medications Medication Instructions Recorded Confirmed Type calcium 250 mg (phosphate)-vit D3 1 tablet PO DAILY 03/04/19 01/28/24 History 12.5 mcg (500 unit) chewable tablet (Citracal-D3 Gummies) psyllium husk 0.4 gram capsule 0.4 g PO DAILY PRN Constipation 03/08/21 01/28/24 History (Metamucil) lisinopril 40 mg tablet 40 mg PO DAILY #90 tabs 12/24/23 01/28/24 Rx acetaminophen 500 mg tablet 1,000 mg PO TID PRN pain 12/27/23 01/28/24 History (Tylenol Extra Strength) duloxetine 30 mg capsule,delayed 30 mg PO DAILY #90 caps 12/27/23 01/28/24 Rx release lidocaine 5 % topical patch 1 patch topical DAILY #30 ea 12/27/23 01/28/24 Rx (DermacinRx Lidocan) [id number] 4 mg-folic acid 1 tablet PO DAILY 12/27/23 01/28/24 History 200 mcg-vit K 25 mcg-lutein tablet (Centrum Minis Women 50 Plus) amlodipine 10 mg tablet 10 mg PO DAILY #90 tabs 01/11/24 01/28/24 Rx biotin 10,000 mcg chewable tablet 10,000 mcg PO DAILY 01/28/24 01/28/24 History (Hair, Skin and Nails (biotin)) gabapentin 100 mg capsule 100 mg PO BID 01/28/24 01/28/24 History gabapentin 100 mg tablet 200 mg PO HS 01/28/24 01/28/24 History Allergies Allergy/AdvReac Type Severity Reaction Status Date / Time Sulfa (Sulfonamide Allergy Mild Hives Verified 01/28/24 10:09 Antibiotics) Vital Signs Vital Signs - 24 hr 01/28/24 10:07 01/28/24 12:09 01/28/24 12:32 Temperature 97.6 F 98.6 F 97.9 F Pulse Rate 62 56 L 66 Respiratory Rate 18 19 15 Blood Pressure 139/50 L 178/63 H 180/63 H Pulse Oximetry 98 97 94 Oxygen Delivery Room Air 01/28/24 12:47 01/28/24 14:07 01/28/24 13:02 Temperature 97.8 F Pulse Rate 68 79 71 Respiratory Rate 15 19 13 Blood Pressure 171/62 H 149/60 H 176/69 H Pulse Oximetry 95 92 94 Oxygen Delivery 01/28/24 14:00 01/28/24 15:02 01/28/24 15:47 Temperature 97.7 F 97.6 F 97.8 F Pulse Rate 75 70 70 Respiratory Rate 16 14 15 Blood Pressure 147/64 H 156/58 H 141/57 H Pulse Oximetry 94 91 96 Oxygen Delivery 01/28/24 16:17 01/28/24 16:34 01/28/24 17:48 Temperature 97.6 F 97.8 F 97.6 F Pulse Rate 72 68 67 Respiratory Rate 17 16 15 Blood Pressure 135/66 118/72 146/55 H Pulse Oximetry 93 98 95 Oxygen Delivery 01/28/24 18:00 01/28/24 18:02 01/28/24 17:00 Temperature 97.8 F Pulse Rate 69 68 71 Respiratory Rate 17 15 18 Blood Pressure 146/56 H 134/80 Pulse Oximetry 98 Oxygen Delivery Exam Const: General: comfortable and no acute distress Other: , female, nontoxic appearance HENMT: Other: Effusion to right tympanic membrane with mild bulge. No erythema or prominent vasculature. Scant fluid to left TM, otherwise normal appearance. Eyes: General: appearance normal, both eyes and all related structures Sclera: sclerae normal Pupils: Equal, round and reactive pupils present EOM: EOMs intact bilaterally Other: No nystagmus. Resp: Effort & Inspection: normal respiratory effort Auscultation: clear to auscultation bilaterally Cardio: Rate: regular rate Rhythm: regular rhythm Other: S1-S2 present without murmur, rub, ectopy GI: Other: Abdomen soft, nondistended. Normoactive bowel sounds in all quadrants. Very mild tenderness in the right lower quadrant. Skin: General skin exam: normal color and no rashes or lesions noted Wounds: no wounds Neuro: Speech: normal speech Motor exam (neuro): 5/5 motor strength present throughout Sensory Exam: normal sensation Other: A&O 4 Extrem: General: normal to inspection Psych: Mental Status: mental status grossly normal Affect: normal affect Other: Good insight and judgment, pleasant H&P: Results Labs Labs: Short CBC 01/28/24 Range/Units 13:38 WBC 9.3 (4.5-10.0) K/mm3 Hgb 12.8 (12.0-15.0) g/dL Hct 39.1 (37.0-47.0) % Plt Count 211 (150-375) k/mm3 BMP 01/28/24 13:38 Sodium 136 L Potassium 4.3 Chloride 103 Carbon Dioxide 29 BUN 19 H Creatinine 0.60 L Glucose 97 Calcium 9.4 Cardiac Enzymes 01/28/24 Range/Units 13:38 Troponin I < 0.012 (0.000-0.034) ng/mL Liver Function 01/28/24 Range/Units 13:38 Total Bilirubin 0.9 (0.2-1.3) mg/dL AST 38 H (14-36) U/L ALT 18 (6-35) U/L Alkaline Phosphatase 66 (38-126) U/L Albumin 4.4 (3.5-5.1) g/dL Urine 01/28/24 Range/Units 13:51 Urine Color Yellow (Yellow) Urine Appearance Turbid H (Clear) Urine pH 8.0 (5.0-9.0) Ur Specific [place] 1.015 (1.001-1.035) Urine Protein Negative (Negative) mg/dL Urine Glucose (UA) Negative (Negative) mg/dL Assessment and Plan Assessment and plan (1) Syncope: Qualifiers: Syncope type: unspecified Qualified Code(s): R55 - Syncope and collapse Code(s): R55 - Syncope and collapse Status: Acute Assessment and Plan: - head CT: No intracranial hemorrhage, mass, or acute infarct. 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 - obtain recent head CT done in November from [facility], if hygromas are new finding then consider Neurology consultation - EKG, initial: Sinus rhythm, rate 65. - CXR: No acute cardiopulmonary disease. - Troponin: <0.012 x2, 3rd troponin ordered - BNP, normal for age - obtain orthostatics, recent increase in amlodipine - echo, previous (06/2022): Normal systolic function, estimated EF 65-70%, grade 1 diastolic dysfunction. - no cardiac catheterization or stress test on file - telemetry monitoring (2) Ground-level fall: Code(s): W18.30XA - Fall on same level, unspecified, initial encounter Status: Acute Assessment and Plan: - trauma workup significant for an acute appearing L1 compression fracture. Head CT: No intracranial hemorrhage, mass, or acute infarct. C-spine CT: Severe cervical spondylosis. No acute osseous abnormality. Thoracic/lumbar spine CT: 1. Acute appearing L1 compression fracture with minimal anterior vertebral body height loss. No other acute osseous abnormality the thoracic or lumbar spine. 2. Mild S-shaped scoliosis of the lumbar and lower thoracic spine with mild to moderate thoracic and severe lumbar spondylosis. 3. 2 mm nonobstructing left renal stone. CXR: No acute cardiopulmonary disease. - fall precautions - PT/OT eval for reduced mobility and placement evaluation - care coordination for rehab evaluation (3) Compression fracture of L1 lumbar vertebra: Qualifiers: Encounter type: initial encounter Qualified Code(s): S32.010A - Wedge compression fracture of first lumbar vertebra, initial encounter for closed fracture Code(s): S32.010A - Wedge compression fracture of first lumbar vertebra, initial encounter for closed fracture Status: Acute Assessment and Plan: - see above (4) Essential (primary) hypertension: Code(s): I10 - Essential (primary) hypertension Status: Chronic Assessment and Plan: - chronic, currently 146/56 - continue home medications: Amlodipine 10 mg daily, lisinopril 40 mg daily - monitor Plan Diet: Heart healthy GI Prophylaxis: Not currently indicated DVT Prophylaxis: SCDs Lines: Peripheral Code Status: Full code Quality VTE Prophylaxis VTE prophylaxis: mechanical ordered Hospitalist MIPS Advance Care Plan I have confirmed that the patient's Advanced Care Plan is present, code status is documented, or surrogate decision maker is listed in patient medical record.: Yes Medication Reconciliation I have utilized all available resources to obtain, update and review the patients current medications (includes all prescriptions, OTC, herbals, cannabis, and nutritional supplements).: Yes
--- NOTE | 2024-01-28 19:10 | PC.NURSE ---
This patient, Laina Kirk, was admitted to [facility] Surg Room 317-02. Patient/family oriented to hospital policies and general routines including ID bracelet, bed and alarms, visiting hours, pain management, procedures, bathroom and other care routines, personal items, smoking policy, room service/diet, and visiting hours. Information on how to activate the Rapid Response Team has been discussed. Patient/Family are encouraged to report perceived risks to care and to ask questions if they do not understand what they are told or what they should do.
[2024-01-28 19:51] LABS: NT Pro B Type Natriuretic Pept 430 pg/mL (19.9-100)
[2024-01-28 19:53] LABS: Troponin I < 0.012 ng/mL (0.000-0.034)
--- NOTE | 2024-01-28 20:34 | ADMGEN ---
This patient, Laina Kirk, was admitted to [facility] Surg Room 317-02. Patient/family oriented to hospital policies and general routines including ID bracelet, bed and alarms, visiting hours, pain management, procedures, bathroom and other care routines, personal items, smoking policy, room service/diet, and visiting hours. Information on how to activate the Rapid Response Team has been discussed. Patient/Family are encouraged to report perceived risks to care and to ask questions if they do not understand what they are told or what they should do.
--- NOTE | 2024-01-28 21:14 | PC.NURSE ---
Admission complete with family at bedside; report to DAGO Taveras.
[2024-01-28] MEDS: guaiFENesin 12 HR 600 MG TABCR PO (23:00)
[2024-01-28] MEDS: ACETAMINOPHEN 500 MG TABLET 1000 MG PO (23:01)
[2024-01-28] MEDS: GABAPENTIN 100 MG CAPSULE 200 MG PO (23:01)
[2024-01-28] MEDS: MECLIZINE HCL 6.25 MG TABLET PO (23:03)
[2024-01-29] VITALS (9 sets, daily range): BP systolic 122–168; BP diastolic 58–60; PULSE 65–77; RESP 14–16; TEMP 36.6–36.9; O2SAT 90–92
[2024-01-29] MEDS: MORPHINE SULFATE (*CRX) 2 MG/ML INJ IV PUSH (09:31)
[2024-01-29] MEDS: lisinopriL 20 MG TABLET 40 MG PO (09:32)
[2024-01-29] MEDS: MULTIVITAMINS /C LUTEIN (CENTRUM SILVER) TABLET *BKC 1 TAB PO (09:32)
[2024-01-29] MEDS: LIDOCAINE 5% PATCH 1 PATCH TRANSDERM (09:32)
[2024-01-29] MEDS: guaiFENesin 12 HR 600 MG TABCR PO ×2 (09:32→21:03)
[2024-01-29] MEDS: DULoxetine HCL 30 MG CAPSULE.DR PO (09:32)
[2024-01-29] MEDS: GABAPENTIN 100 MG CAPSULE PO ×2 (09:33→17:01)
[2024-01-29] MEDS: FLUTICASONE PROPIONATE 0.05% NA SPR 16 GM BTL (*BKC) 1 SPRAY NASAL ×2 (09:33→21:05)
[2024-01-29] MEDS: CALCIUM CITRATE 315 MG/VITAMIN D 6.25 MCG (250 UNITS) TAB 1 TABLET PO (09:33)
[2024-01-29] MEDS: amLODIPine BESYLATE 10 MG TABLET PO (09:33)
[2024-01-29] MEDS: HYDROcodone/acetaminophen (*CRX) 5-325 MG TABLET 1 TAB PO ×2 (11:54→21:03)
--- NOTE | 2024-01-29 17:07 | P.PNIM_ITS ---
Progress Note: A&P Assessment and Plan (1) Syncope: Qualifiers: Syncope type: unspecified Qualified Code(s): R55 - Syncope and collapse Code(s): R55 - Syncope and collapse Status: Acute Assessment and Plan: - head CT: No intracranial hemorrhage, mass, or acute infarct. 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 - obtain recent head CT done in November from [facility], if hygromas are new finding then consider Neurology consultation - EKG, initial: Sinus rhythm, rate 65. - CXR: No acute cardiopulmonary disease. - Troponin: <0.012 x2, 3rd troponin ordered - BNP, normal for age - obtain orthostatics, recent increase in amlodipine - echo, previous (06/2022): Normal systolic function, estimated EF 65-70%, grade 1 diastolic dysfunction. - no cardiac catheterization or stress test on file - telemetry monitoring (2) Ground-level fall: Code(s): W18.30XA - Fall on same level, unspecified, initial encounter Status: Acute Assessment and Plan: - trauma workup significant for an acute appearing L1 compression fracture. Head CT: No intracranial hemorrhage, mass, or acute infarct. C-spine CT: Severe cervical spondylosis. No acute osseous abnormality. Thoracic/lumbar spine CT: 1. Acute appearing L1 compression fracture with minimal anterior vertebral body height loss. No other acute osseous abnormality the thoracic or lumbar spine. 2. Mild S-shaped scoliosis of the lumbar and lower thoracic spine with mild to moderate thoracic and severe lumbar spondylosis. 3. 2 mm nonobstructing left renal stone. CXR: No acute cardiopulmonary disease. - fall precautions - PT/OT eval for reduced mobility and placement evaluation - care coordination for rehab evaluation (3) Compression fracture of L1 lumbar vertebra: Qualifiers: Encounter type: initial encounter Qualified Code(s): S32.010A - Wedge compression fracture of first lumbar vertebra, initial encounter for closed fracture Code(s): S32.010A - Wedge compression fracture of first lumbar vertebra, initial encounter for closed fracture Status: Acute Assessment and Plan: - see above (4) Essential (primary) hypertension: Code(s): I10 - Essential (primary) hypertension Status: Chronic Assessment and Plan: - chronic, currently 146/56 - continue home medications: Amlodipine 10 mg daily, lisinopril 40 mg daily - monitor Plan Diet: Heart healthy GI Prophylaxis: Not currently indicated DVT Prophylaxis: SCDs Lines: Peripheral Code Status: Full code Subjective Date/time seen: 01/29/24 17:07 Interval history: Patient in does back pain but denies any urinary or fecal incontinence. No evidence of neurological compromise. Neurosurgery is consulted regarding L2-1 lumbar compression fracture. Review of Systems Review of Systems: All systems reviewed & are unremarkable except as noted in HPI and below Exam Narrative: right effusion. Left with scant fluid, otherwise normal TM. heart and lungs fine. strong in all extrem. A/Ox4. no nystagmus or facial droop. Const: General: comfortable and no acute distress Other: , female, nontoxic appearance HENMT: Other: Effusion to right tympanic membrane with mild bulge. No erythema or prominent vasculature. Scant fluid to left TM, otherwise normal appearance. Eyes: General: appearance normal, both eyes and all related structures Sclera: sclerae normal Pupils: Equal, round and reactive pupils present EOM: EOMs intact bilaterally Other: No nystagmus. Resp: Effort & Inspection: normal respiratory effort Auscultation: clear to auscultation bilaterally Cardio: Rate: regular rate Rhythm: regular rhythm Other: S1-S2 present without murmur, rub, ectopy GI: Other: Abdomen soft, nondistended. Normoactive bowel sounds in all quadrants. Very mild tenderness in the right lower quadrant. Skin: General skin exam: normal color and no rashes or lesions noted Wou nds: no wounds Neuro: Cranial nerves: Yes Equal, round and reactive pupils present Speech: normal speech Motor exam (neuro): 5/5 motor strength present throughout Sensory Exam: normal sensation Other: A&O 4 Extrem: General: normal to inspection Psych: Mental Status: mental status grossly normal Affect: normal affect Other: Good insight and judgment, pleasant Objective Data Vital Signs Vital Signs: Vital Signs - 24 hr 01/28/24 17:48 01/28/24 18:00 01/28/24 18:02 Temperature 97.6 F Pulse Rate 67 69 68 Respiratory Rate 15 17 15 Blood Pressure 146/55 H 146/56 H Pulse Oximetry 95 Oxygen Delivery 01/28/24 22:00 01/28/24 20:00 01/29/24 00:00 Temperature 98.1 F Pulse Rate 71 71 Respiratory Rate 18 Blood Pressure 150/50 H Pulse Oximetry 95 Oxygen Delivery Room Air 01/29/24 04:00 01/29/24 06:00 01/29/24 08:00 Temperature 97.9 F Pulse Rate 65 69 Respiratory Rate 16 Blood Pressure 122/60 Pulse Oximetry 90 Oxygen Delivery Room Air 01/29/24 08:00 01/29/24 13:55 Temperature 98.3 F Pulse Rate 77 65 Respiratory Rate 16 Blood Pressure 129/59 L Pulse Oximetry 92 Oxygen Delivery Intake/Output Intake/Output: Intake & Output 01/26/24 01/27/24 01/28/24 01/29/24 23:59 23:59 23:59 23:59 Intake Total 1000 1360 Output Total 500 Balance 1000 860 Meds/Results Medications: Active Medications Generic Name Dose Route Start Last Admin Trade Name Freq PRN Reason Stop Dose Admin Acetaminophen 1,000 mg 01/28/24 22:32 01/28/24 23:01 Acetaminophen 500 Mg Tablet PO 1,000 mg TID PRN Administration pain 1-3 Hydrocodone Bitart/Acetaminophen 1 tab 01/28/24 23:00 01/29/24 11:54 Hydrocodone/Acetaminophen (*Crx) 5-325 Mg Tablet PO 1 tab Q6H PRN Administration Pain Rated 4-6 Amlodipine Besylate 10 mg 01/29/24 09:00 01/29/24 09:33 Amlodipine Besylate 10 Mg Tablet PO 10 mg DAILY YULIA Administration Calcium Citrate 1 tablet 01/29/24 09:00 01/29/24 09:33 Calcium Citrate 315 Mg/Vitamin D 6.25 Mcg (250 Units) Tab PO 1 tablet DAILY YULIA Administration Duloxetine HCl 30 mg 01/29/24 09:00 01/29/24 09:32 Duloxetine Hcl 30 Mg Capsule.Dr PO 30 mg DAILY YULIA Administration Fluticasone Propionate 1 spray 01/28/24 22:45 01/29/24 09:33 Fluticasone Propionate 0.05% Na Spr 16 Gm Btl (*Bkc) NASAL 1 spray Q12HR YULIA Administration Gabapentin 200 mg 01/28/24 22:40 01/28/24 23:01 Gabapentin 100 Mg Capsule PO 200 mg HS YULIA Administration Gabapentin 100 mg 01/29/24 09:00 01/29/24 17:01 Gabapentin 100 Mg Capsule PO 100 mg BID YULIA Administration Guaifenesin 600 mg 01/28/24 22:45 01/29/24 09:32 Guaifenesin 12 Hr 600 Mg Tabcr PO 600 mg Q12HR YULIA Administration Lidocaine 1 patch 01/29/24 09:00 01/29/24 09:32 Lidocaine 5% Patch TRANSDERM 1 patch DAILY YULIA Administration Lisinopril 40 mg 01/29/24 09:00 01/29/24 09:32 Lisinopril 20 Mg Tablet PO 40 mg DAILY YULIA Administration Meclizine HCl 6.25 mg 01/28/24 20:39 01/28/24 23:03 Meclizine Hcl 6.25 Mg Tablet PO 6.25 mg TID PRN Administration Dizziness Morphine Sulfate 2 mg 01/28/24 23:00 01/29/24 09:31 Morphine Sulfate (*Crx) 2 Mg/Ml Inj IV PUSH 2 mg Q4H PRN Administration Pain Rated 7-10 Multivitamins/Minerals 1 tab 01/29/24 09:00 01/29/24 09:32 Multivitamins /C Lutein (Centrum Silver) Tablet *Bkc PO 1 tab DAILY YULIA Administration Non-Formulary Medication 1 each 01/28/24 22:46 Nonformulary Nutritional Supplement XX 01/29/24 22:45 PRN PRN PROTOCOL Psyllium Hydrophilic Mucilloid 1 packet 01/28/24 22:32 Psyllium Powder Packet PO DAILY PRN Constipation Radiology Results: ITS Impressions Cervical Spine CT 01/28/24 10:48 IMPRESSION: 1. Severe cervical spondylosis. No acute osseous abnormality. Head CT 01/28/24 10:48 Impression: No intracranial hemorrhage, mass, or acute infarct. 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 Thoracic/Lumbar Spine CT 01/28/24 10:59 IMPRESSION: 1. Acute appearing L1 compression fracture with minimal anterior vertebral body height loss. No other acute osseous abnormality the thoracic or lumbar spine. 2. Mild S-shaped scoliosis of the lumbar and lower thoracic spine with mild to moderate thoracic and severe lumbar spondylosis. 3. 2 mm nonobstructing left renal stone. Chest X-Ray 01/28/24 13:55 IMPRESSION: 1. No acute cardiopulmonary disease. Labs Labs: Laboratory Results - last 24 hr 01/28/24 01/28/24 16:38 19:24 Troponin I Cancelled < 0.012 NT-Pro-B Natriuret Pep 430 H Quality VTE Prophylaxis VTE prophylaxis: mechanical ordered Hospitalist MIPS Advance Care Plan I have confirmed that the patient's Advanced Care Plan is present, code status is documented, or surrogate decision maker is listed in patient medical record.: Yes Medication Reconciliation I have utilized all available resources to obtain, update and review the patients current medications (includes all prescriptions, OTC, herbals, cannabis, and nutritional supplements).: Yes
[2024-01-29] MEDS: GABAPENTIN 100 MG CAPSULE 200 MG PO (21:03)
[2024-01-30] VITALS (10 sets, daily range): BP systolic 146–154; BP diastolic 53–59; PULSE 66–74; RESP 14–18; TEMP 35.8–36.9; O2SAT 91–100
[2024-01-30 07:01] LABS: Hematocrit 37.3 % (37.0-47.0); Hemoglobin 12.2 g/dL (12.0-15.0); Mean Corpuscular HGB Conc 32.7 g/dl (32-36); Mean Corpuscular Hemoglobin 31.4 pg (26-34); Mean Corpuscular Volume 95.9 fl (80-100); Mean Platelet Volume 10.1 fl (7.4-10.4); Platelet Count Result 164 k/mm3 (150-375); Red Blood Count 3.89 M/mm3 (4.2-5.4); Red Cell Distribution Width 13.4 % (11.5-14.5); White Blood Count 7.6 K/mm3 (4.5-10.0)
[2024-01-30 07:12] LABS: Alanine Aminotransferase 13 U/L (6-35); Albumin Level 3.5 g/dL (3.5-5.1); Alkaline Phosphatase 55 U/L (38-126); Anion Gap 2 mmol/L (4-12); Aspartate Amino Transferase 25 U/L (14-36); Bilirubin,Total 0.9 mg/dL (0.2-1.3); Blood Urea Nitrogen 15 mg/dL (7-17); Calcium 8.4 mg/dL (8.4-10.2); Carbon Dioxide 31 mmol/L (22-30); Chloride 100 mmol/L (98-107); Estimated CRCL calculation 56 ml/min; Estimated Glomerular Filt Rate > 60; Glucose 104 mg/dL (65-110); Potassium 3.6 mmol/L (3.4-5.0); Sodium 133 mmol/L (137-145)
[2024-01-30] MEDS: MORPHINE SULFATE (*CRX) 2 MG/ML INJ IV PUSH ×2 (09:19→13:11)
[2024-01-30] MEDS: FLUTICASONE PROPIONATE 0.05% NA SPR 16 GM BTL (*BKC) 1 SPRAY NASAL ×2 (09:23→20:34)
[2024-01-30] MEDS: CALCIUM CITRATE 315 MG/VITAMIN D 6.25 MCG (250 UNITS) TAB 1 TABLET PO (09:24)
[2024-01-30] MEDS: LIDOCAINE 5% PATCH 1 PATCH TRANSDERM (09:24)
[2024-01-30] MEDS: MULTIVITAMINS /C LUTEIN (CENTRUM SILVER) TABLET *BKC 1 TAB PO (09:24)
[2024-01-30] MEDS: guaiFENesin 12 HR 600 MG TABCR PO ×2 (09:24→20:18)
[2024-01-30] MEDS: amLODIPine BESYLATE 10 MG TABLET PO (09:24)
[2024-01-30] MEDS: DULoxetine HCL 30 MG CAPSULE.DR PO (09:24)
[2024-01-30] MEDS: GABAPENTIN 100 MG CAPSULE PO ×2 (09:24→16:27)
[2024-01-30] MEDS: lisinopriL 20 MG TABLET 40 MG PO (09:24)
[2024-01-30] MEDS: HYDROcodone/acetaminophen (*CRX) 5-325 MG TABLET 1 TAB PO (11:13)
[2024-01-30] MEDS: MECLIZINE HCL 6.25 MG TABLET PO (14:21)
[2024-01-30] MEDS: ONDANSETRON INJ 4 MG/2 ML VIAL IV PUSH (14:30)
--- NOTE | 2024-01-30 15:19 | PM.IMPN ---
Progress Note: A&P Assessment and Plan (1) Syncope: Code(s): R55 - Syncope and collapse Status: Acute Assessment and Plan: - head CT: No intracranial hemorrhage, mass, or acute infarct. 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 - obtain recent head CT done in November from [facility], if hygromas are new finding then consider Neurology consultation - EKG, initial: Sinus rhythm, rate 65. - CXR: No acute cardiopulmonary disease. - Troponin: <0.012 x2, 3rd troponin ordered - BNP, normal for age - obtain orthostatics, recent increase in amlodipine - echo, previous (06/2022): Normal systolic function, estimated EF 65-70%, grade 1 diastolic dysfunction. - no cardiac catheterization or stress test on file - telemetry monitoring (2) Ground-level fall: Code(s): W18.30XA - Fall on same level, unspecified, initial encounter Status: Acute Assessment and Plan: - trauma workup significant for an acute appearing L1 compression fracture. Head CT: No intracranial hemorrhage, mass, or acute infarct. C-spine CT: Severe cervical spondylosis. No acute osseous abnormality. Thoracic/lumbar spine CT: 1. Acute appearing L1 compression fracture with minimal anterior vertebral body height loss. No other acute osseous abnormality the thoracic or lumbar spine. 2. Mild S-shaped scoliosis of the lumbar and lower thoracic spine with mild to moderate thoracic and severe lumbar spondylosis. 3. 2 mm nonobstructing left renal stone. CXR: No acute cardiopulmonary disease. - fall precautions - PT/OT eval for reduced mobility and placement evaluation - care coordination for rehab evaluation (3) Compression fracture of L1 lumbar vertebra: Code(s): S32.010A - Wedge compression fracture of first lumbar vertebra, initial encounter for closed fracture Status: Acute Assessment and Plan: Neurosurgery consulted and ordered TLSO brace. - see above (4) Essential (primary) hypertension: Code(s): I10 - Essential (primary) hypertension Status: Chronic Assessment and Plan: - chronic - continue home medications: Amlodipine 10 mg daily, lisinopril 40 mg daily - monitor Plan Diet: Heart healthy GI Prophylaxis: Not currently indicated DVT Prophylaxis: SCDs Lines: Peripheral Code Status: Full code Subjective Date/time seen: 01/30/24 15:19 Interval history: Neurosurgery ordered TLSO brace. Patient complains of pain. Her Se[place] has been increased from 5-10. Will continue monitor. Continue PT OT Review of Systems Review of Systems: All systems reviewed & are unremarkable except as noted in HPI and below Exam Narrative: right effusion. Left with scant fluid, otherwise normal TM. heart and lungs fine. strong in all extrem. A/Ox4. no nystagmus or facial droop. Const: General: comfortable and no acute distress Other: , female, nontoxic appearance HENMT: Other: Effusion to right tympanic membrane with mild bulge. No erythema or prominent vasculature. Scant fluid to left TM, otherwise normal appearance. Eyes: General: appearance normal, both eyes and all related structures Sclera: sclerae normal Pupils: Equal, round and reactive pupils present EOM: EOMs intact bilaterally Other: No nystagmus. Resp: Effort & Inspection: normal respiratory effort Auscultation: clear to auscultation bilaterally Cardio: Rate: regular rate Rhythm: regular rhythm Other: S1-S2 present without murmur, rub, ectopy GI: Other: Abdomen soft, nondistended. Normoactive bowel sounds in all quadrants. Very mild tenderness in the right lower quadrant. Skin: General skin exam: normal color and no rashes or lesions noted Wounds: no wounds Neuro: Cranial nerves: Yes Equal, round and reactive pupils present Speech: normal speech Motor exam (neuro): 5/5 motor strength present throughout Sensory Exam: normal sensation Other: A&O 4 Extrem: General: normal to inspection Psych: Mental Status: mental status grossly normal Affect: normal affect Other: Good insight and judgment, pleasant Objective Data Vital Signs Vital Signs: Vital Signs - 24 hr 01/29/24 16:00 01/29/24 20:00 01/29/24 21:24 Temperature 98.4 F Pulse Rate 65 73 Respiratory Rate 14 Blood Pressure 168/58 H Pulse Oximetry 91 Oxygen Delivery Room Air 01/29/24 20:00 01/30/24 00:00 01/30/24 05:59 Temperature 98.5 F Pulse Rate 73 73 72 Respiratory Rate 14 Blood Pressure 154/57 H Pulse Oximetry 92 Oxygen Delivery 01/30/24 04:00 01/30/24 08:16 01/30/24 08:00 Temperature Pulse Rate 68 70 Respiratory Rate Blood Pressure Pulse Oximetry 91 Oxygen Delivery Room Air 01/30/24 08:00 01/30/24 13:32 Temperature Pulse Rate Respiratory Rate Blood Pressure Pulse Oximetry Oxygen Delivery Room Air Room Air Intake/Output Intake/Output: Intake & Output 01/27/24 01/28/24 01/29/24 01/30/24 23:59 23:59 23:59 23:59 Intake Total 1000 1600 800 Output Total 900 700 Balance 1000 700 100 Meds/Results Medications: Active Medications Generic Name Dose Route Start Last Admin Trade Name Freq PRN Reason Stop Dose Admin Acetaminophen 1,000 mg 01/28/24 22:32 01/28/24 23:01 Acetaminophen 500 Mg Tablet PO 1,000 mg TID PRN Administration pain 1-3 Hydrocodone Bitart/Acetaminophen 1 tab 01/28/24 23:00 01/30/24 11:13 Hydrocodone/Acetaminophen (*Crx) 5-325 Mg Tablet PO 1 tab Q6H PRN Administration Pain Rated 4-6 Hydrocodone Bitart/Acetaminophen 1 tab 01/30/24 14:27 Hydrocodone/Acetaminophen (*Crx) 10-325 Mg Tablet PO Q6H PRN Pain Rated 7-10 Amlodipine Besylate 10 mg 01/29/24 09:00 01/30/24 09:24 Amlodipine Besylate 10 Mg Tablet PO 10 mg DAILY YULIA Administration Calcium Citrate 1 tablet 01/29/24 09:00 01/30/24 09:24 Calcium Citrate 315 Mg/Vitamin D 6.25 Mcg (250 Units) Tab PO 1 tablet DAILY YULIA Administration Duloxetine HCl 30 mg 01/29/24 09:00 01/30/24 09:24 Duloxetine Hcl 30 Mg Capsule.Dr PO 30 mg DAILY YULIA Administration Fluticasone Propionate 1 spray 01/28/24 22:45 01/30/24 09:23 Fluticasone Propionate 0.05% Na Spr 16 Gm Btl (*Bkc) NASAL 1 spray Q12HR YULIA Administration Gabapentin 200 mg 01/28/24 22:40 01/29/24 21:03 Gabapentin 100 Mg Capsule PO 200 mg HS YULIA Administration Gabapentin 100 mg 01/29/24 09:00 01/30/24 09:24 Gabapentin 100 Mg Capsule PO 100 mg BID YULIA Administration Guaifenesin 600 mg 01/28/24 22:45 01/30/24 09:24 Guaifenesin 12 Hr 600 Mg Tabcr PO 600 mg Q12HR YULIA Administration Lidocaine 1 patch 01/29/24 09:00 01/30/24 09:24 Lidocaine 5% Patch TRANSDERM 1 patch DAILY YULIA Administration Lisinopril 40 mg 01/29/24 09:00 01/30/24 09:24 Lisinopril 20 Mg Tablet PO 40 mg DAILY YULIA Administration Meclizine HCl 6.25 mg 01/28/24 20:39 01/30/24 14:21 Meclizine Hcl 6.25 Mg Tablet PO 6.25 mg TID PRN Administration Dizziness Morphine Sulfate 2 mg 01/28/24 23:00 01/30/24 13:11 Morphine Sulfate (*Crx) 2 Mg/Ml Inj IV PUSH 2 mg Q4H PRN Administration Pain Rated 7-10 Multivitamins/Minerals 1 tab 01/29/24 09:00 01/30/24 09:24 Multivitamins /C Lutein (Centrum Silver) Tablet *Bkc PO 1 tab DAILY [facility] Administration Ondansetron HCl 4 mg 01/30/24 14:22 01/30/24 14:30 Ondansetron Inj 4 Mg/2 Ml Vial IV PUSH 4 mg Q4H PRN Administration Nausea And Vomiting Psyllium Hydrophilic Mucilloid 1 packet 01/31/24 09:00 Psyllium Powder Packet PO DAILY [facility] Radiology Results: ITS Impressions Cervical Spine CT 01/28/24 10:48 IMPRESSION: 1. Severe cervical spondylosis. No acute osseous abnormality. Head CT 01/28/24 10:48 Impression: No intracranial hemorrhage, mass, or acute infarct. 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 Thoracic/Lumbar Spine CT 01/28/24 10:59 IMPRESSION: 1. Acute appearing L1 compression fracture with minimal anterior vertebral body height loss. No other acute osseous abnormality the thoracic or lumbar spine. 2. Mild S-shaped scoliosis of the lumbar and lower thoracic spine with mild to moderate thoracic and severe lumbar spondylosis. 3. 2 mm nonobstructing left renal stone. Chest X-Ray 01/28/24 13:55 IMPRESSION: 1. No acute cardiopulmonary disease. Labs Labs: Laboratory Results - last 24 hr 01/30/24 06:47 WBC 7.6 RBC 3.89 L Hgb 12.2 Hct 37.3 MCV 95.9 MCH 31.4 MCHC 32.7 RDW 13.4 Plt Count 164 MPV 10.1 Sodium 133 L Potassium 3.6 Chloride 100 Carbon Dioxide 31 H Anion Gap 2 L BUN 15 Creatinine 0.70 Estim Creat Clear Calc 56 Estimated GFR > 60 Glucose 104 Calcium 8.4 Total Bilirubin 0.9 AST 25 ALT 13 Alkaline Phosphatase 55 Total Protein 6.0 L Albumin 3.5 Quality VTE Prophylaxis VTE prophylaxis: mechanical ordered Hospitalist MIPS Advance Care Plan I have confirmed that the patient's Advanced Care Plan is present, code status is documented, or surrogate decision maker is listed in patient medical record.: Yes Medication Reconciliation I have utilized all available resources to obtain, update and review the patients current medications (includes all prescriptions, OTC, herbals, cannabis, and nutritional supplements).: Yes
[2024-01-30] MEDS: HYDROcodone/acetaminophen (*CRX) 10-325 MG TABLET 1 TAB PO (18:31)
[2024-01-30] MEDS: GABAPENTIN 100 MG CAPSULE 200 MG PO (20:18)
[2024-01-30] MEDS: ACETAMINOPHEN 500 MG TABLET 1000 MG PO (20:38)
[2024-01-31] VITALS (10 sets, daily range): BP systolic 90–132; BP diastolic 45–64; PULSE 56–77; RESP 18–20; TEMP 36.4–36.8; O2SAT 90–100
[2024-01-31 07:57] LABS: Hematocrit 36.6 % (37.0-47.0); Hemoglobin 11.7 g/dL (12.0-15.0); Mean Corpuscular Hemoglobin 30.8 pg (26-34); Mean Corpuscular Volume 96.3 fl (80-100); Mean Platelet Volume 10.3 fl (7.4-10.4); Platelet Count Result 164 k/mm3 (150-375); Red Cell Distribution Width 13.2 % (11.5-14.5)
[2024-01-31 08:37] LABS: Alanine Aminotransferase 13 U/L (6-35); Albumin Level 3.4 g/dL (3.5-5.1); Alkaline Phosphatase 58 U/L (38-126); Anion Gap 3 mmol/L (4-12); Aspartate Amino Transferase 25 U/L (14-36); Bilirubin,Total 0.9 mg/dL (0.2-1.3); Blood Urea Nitrogen 19 mg/dL (7-17); Calcium 8.6 mg/dL (8.4-10.2); Carbon Dioxide 32 mmol/L (22-30); Chloride 100 mmol/L (98-107); Estimated CRCL calculation 56 ml/min; Estimated Glomerular Filt Rate > 60; Glucose 102 mg/dL (65-110); Potassium 3.8 mmol/L (3.4-5.0); Sodium 135 mmol/L (137-145)
[2024-01-31] MEDS: GABAPENTIN 100 MG CAPSULE PO ×2 (08:39→17:25)
[2024-01-31] MEDS: lisinopriL 20 MG TABLET 40 MG PO (08:39)
[2024-01-31] MEDS: guaiFENesin 12 HR 600 MG TABCR PO ×2 (08:39→20:33)
[2024-01-31] MEDS: amLODIPine BESYLATE 10 MG TABLET PO (08:39)
[2024-01-31] MEDS: CALCIUM CITRATE 315 MG/VITAMIN D 6.25 MCG (250 UNITS) TAB 1 TABLET PO (08:39)
[2024-01-31] MEDS: MULTIVITAMINS /C LUTEIN (CENTRUM SILVER) TABLET *BKC 1 TAB PO (08:39)
[2024-01-31] MEDS: HYDROcodone/acetaminophen (*CRX) 10-325 MG TABLET 1 TAB PO ×2 (08:39→17:24)
[2024-01-31] MEDS: DULoxetine HCL 30 MG CAPSULE.DR PO (08:39)
[2024-01-31] MEDS: LIDOCAINE 5% PATCH 1 PATCH TRANSDERM (08:40)
[2024-01-31] MEDS: FLUTICASONE PROPIONATE 0.05% NA SPR 16 GM BTL (*BKC) 1 SPRAY NASAL ×2 (08:40→20:34)
[2024-01-31] MEDS: PSYLLIUM POWDER PACKET 1 PACKET PO (08:40)
[2024-01-31] MEDS: MORPHINE SULFATE (*CRX) 2 MG/ML INJ IV PUSH (10:54)
[2024-01-31] MEDS: ONDANSETRON INJ 4 MG/2 ML VIAL IV PUSH (10:54)
[2024-01-31] MEDS: MECLIZINE HCL 6.25 MG TABLET PO (10:54)
--- NOTE | 2024-01-31 14:03 | PM.IMPN ---
Progress Note: A&P Assessment and Plan (1) Syncope: Code(s): R55 - Syncope and collapse Status: Acute Assessment and Plan: - head CT: No intracranial hemorrhage, mass, or acute infarct. 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 - obtain recent head CT done in November from [facility], if hygromas are new finding then consider Neurology consultation - EKG, initial: Sinus rhythm, rate 65. - CXR: No acute cardiopulmonary disease. - Troponin: <0.012 x2, 3rd troponin ordered - BNP, normal for age - obtain orthostatics, recent increase in amlodipine - echo, previous (06/2022): Normal systolic function, estimated EF 65-70%, grade 1 diastolic dysfunction. - no cardiac catheterization or stress test on file - telemetry monitoring (2) Ground-level fall: Code(s): W18.30XA - Fall on same level, unspecified, initial encounter Status: Acute Assessment and Plan: - trauma workup significant for an acute appearing L1 compression fracture. Head CT: No intracranial hemorrhage, mass, or acute infarct. C-spine CT: Severe cervical spondylosis. No acute osseous abnormality. Thoracic/lumbar spine CT: 1. Acute appearing L1 compression fracture with minimal anterior vertebral body height loss. No other acute osseous abnormality the thoracic or lumbar spine. 2. Mild S-shaped scoliosis of the lumbar and lower thoracic spine with mild to moderate thoracic and severe lumbar spondylosis. 3. 2 mm nonobstructing left renal stone. CXR: No acute cardiopulmonary disease. - fall precautions - PT/OT eval for reduced mobility and placement evaluation - care coordination for rehab evaluation (3) Compression fracture of L1 lumbar vertebra: Code(s): S32.010A - Wedge compression fracture of first lumbar vertebra, initial encounter for closed fracture Status: Acute Assessment and Plan: Neurosurgery consulted and ordered TLSO brace. - see above (4) Essential (primary) hypertension: Code(s): I10 - Essential (primary) hypertension Status: Chronic Assessment and Plan: - chronic - continue home medications: Amlodipine 10 mg daily, lisinopril 40 mg daily - monitor Plan Diet: Heart healthy GI Prophylaxis: Not currently indicated DVT Prophylaxis: SCDs Lines: Peripheral Code Status: Full code Subjective Date/time seen: 01/31/24 14:03 Interval history: Patient reports that lying flat helps her. Still complains of pain. Review of Systems Review of Systems: All systems reviewed & are unremarkable except as noted in HPI and below Exam Narrative: right effusion. Left with scant fluid, otherwise normal TM. heart and lungs fine. strong in all extrem. A/Ox4. no nystagmus or facial droop. Const: General: comfortable and no acute distress Other: , female, nontoxic appearance HENMT: Other: Effusion to right tympanic membrane with mild bulge. No erythema or prominent vasculature. Scant fluid to left TM, otherwise normal appearance. Eyes: General: appearance normal, both eyes and all related structures Sclera: sclerae normal Pupils: Equal, round and reactive pupils present EOM: EOMs intact bilaterally Other: No nystagmus. Resp: Effort & Inspection: normal respiratory effort Auscultation: clear to auscultation bilaterally Cardio: Rate: regular rate Rhythm: regular rhythm Other: S1-S2 present without murmur, rub, ectopy GI: Other: Abdomen soft, nondistended. Normoactive bowel sounds in all quadrants. Very mild tenderness in the right lower quadrant. Skin: General skin exam: normal color and no rashes or lesions noted Wounds: no wounds Neuro: Cranial nerves: Yes Equal, round and reactive pupils present Speech: normal speech Motor exam (neuro): 5/5 motor strength present throughout Sensory Exam: normal sensation Other: A&O 4 Extrem: General: normal to inspection Psych: Mental Status: mental status grossly normal Affect: normal affect Other: Good insight and judgment, pleasant Objective Data Vital Signs Vital Signs: Vital Signs - 24 hr 01/30/24 14:35 01/30/24 16:00 01/30/24 21:48 Temperature 98.2 F Pulse Rate 66 68 Respiratory Rate 18 Blood Pressure 146/59 H Pulse Oximetry 97 Oxygen Delivery Room Air 01/30/24 20:00 01/30/24 20:00 01/31/24 00:00 Temperature Pulse Rate 74 61 Respiratory Rate Blood Pressure Pulse Oximetry Oxygen Delivery Room Air 01/30/24 20:00 01/31/24 06:00 01/31/24 04:00 Temperature 98.2 F Pulse Rate 66 65 Respiratory Rate 20 Blood Pressure 132/55 L Pulse Oximetry 97 95 Oxygen Delivery Room Air 01/31/24 08:00 01/31/24 12:53 Temperature Pulse Rate Respiratory Rate Blood Pressure 90/50 L Pulse Oximetry Oxygen Delivery Room Air Intake/Output Intake/Output: Intake & Output 01/28/24 01/29/24 01/30/24 01/31/24 23:59 23:59 23:59 23:59 Intake Total 1000 1600 2736 700 Output Total 824 854 0304 Balance 5172 920 4677 -300 Meds/Results Medications: Active Medications Generic Name Dose Route Start Last Admin Trade Name Freq PRN Reason Stop Dose Admin Acetaminophen 1,000 mg 01/28/24 22:32 01/30/24 20:38 Acetaminophen 500 Mg Tablet PO 1,000 mg TID PRN Administration pain 1-3 Hydrocodone Bitart/Acetaminophen 1 tab 01/28/24 23:00 01/30/24 11:13 Hydrocodone/Acetaminophen (*Crx) 5-325 Mg Tablet PO 1 tab Q6H PRN Administration Pain Rated 4-6 Hydrocodone Bitart/Acetaminophen 1 tab 01/30/24 14:27 01/31/24 08:39 Hydrocodone/Acetaminophen (*Crx) 10-325 Mg Tablet PO 1 tab Q6H PRN Administration Pain Rated 7-10 Amlodipine Besylate 10 mg 01/29/24 09:00 01/31/24 08:39 Amlodipine Besylate 10 Mg Tablet PO 10 mg DAILY YULIA Administration Benzocaine 1 lozenge 01/31/24 12:52 Benzocaine/Menthol (*Bkc) 18 Ea Lozenge PO PRN PRN Sore Throat Calcium Citrate 1 tablet 01/29/24 09:00 01/31/24 08:39 Calcium Citrate 315 Mg/Vitamin D 6.25 Mcg (250 Units) Tab PO 1 tablet DAILY YULIA Administration Duloxetine HCl 30 mg 01/29/24 09:00 01/31/24 08:39 Duloxetine Hcl 30 Mg Capsule.Dr PO 30 mg DAILY YULIA Administration Fluticasone Propionate 1 spray 01/28/24 22:45 01/31/24 08:40 Fluticasone Propionate 0.05% Na Spr 16 Gm Btl (*Bkc) NASAL 1 spray Q12HR YULIA Administration Gabapentin 200 mg 01/28/24 22:40 01/30/24 20:18 Gabapentin 100 Mg Capsule PO 200 mg HS YULIA Administration Gabapentin 100 mg 01/29/24 09:00 01/31/24 08:39 Gabapentin 100 Mg Capsule PO 100 mg BID YULIA Administration Guaifenesin 600 mg 01/28/24 22:45 12/05/24 08:39 Guaifenesin 12 Hr 600 Mg Tabcr PO 600 mg Q12HR YULIA Administration Lidocaine 1 patch 01/29/24 09:00 01/31/24 08:40 Lidocaine 5% Patch TRANSDERM 1 patch DAILY YULIA Administration Lisinopril 40 mg 01/29/24 09:00 01/31/24 08:39 Lisinopril 20 Mg Tablet PO 40 mg DAILY YULIA Administration Meclizine HCl 6.25 mg 01/28/24 20:39 01/31/24 10:54 Meclizine Hcl 6.25 Mg Tablet PO 6.25 mg TID PRN Administration Dizziness Morphine Sulfate 2 mg 01/28/24 23:00 01/31/24 10:54 Morphine Sulfate (*Crx) 2 Mg/Ml Inj IV PUSH 2 mg Q4H PRN Administration Pain Rated 7-10 Multivitamins/Minerals 1 tab 01/29/24 09:00 01/31/24 08:39 Multivitamins /C Lutein (Centrum Silver) Tablet *Bkc PO 1 tab DAILY YULIA Administration Ondansetron HCl 4 mg 01/30/24 14:22 01/31/24 10:54 Ondansetron Inj 4 Mg/2 Ml Vial IV PUSH 4 mg Q4H PRN Administration Nausea And Vomiting Psyllium Hydrophilic Mucilloid 1 packet 01/31/24 09:00 01/31/24 08:40 Psyllium Powder Packet PO 1 packet DAILY YULIA Administration Radiology Results: ITS Impressions Cervical Spine CT 01/28/24 10:48 IMPRESSION: 1. Severe cervical spondylosis. No acute osseous abnormality. Head CT 01/28/24 10:48 Impression: No intracranial hemorrhage, mass, or acute infarct. 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 Thoracic/Lumbar Spine CT 01/28/24 10:59 IMPRESSION: 1. Acute appearing L1 compression fracture with minimal anterior vertebral body height loss. No other acute osseous abnormality the thoracic or lumbar spine. 2. Mild S-shaped scoliosis of the lumbar and lower thoracic spine with mild to moderate thoracic and severe lumbar spondylosis. 3. 2 mm nonobstructing left renal stone. Chest X-Ray 01/28/24 13:55 IMPRESSION: 1. No acute cardiopulmonary disease. Labs Labs: Laboratory Results - last 24 hr 01/31/24 07:26 WBC 9.0 RBC 3.80 L Hgb 11.7 L Hct 36.6 L MCV 96.3 MCH 30.8 MCHC 32.0 RDW 13.2 Plt Count 164 MPV 10.3 Sodium 135 L Potassium 3.8 Chloride 100 Carbon Dioxide 32 H Anion Gap 3 L BUN 19 H Creatinine 0.70 Estim Creat Clear Calc 56 Estimated GFR > 60 Glucose 102 Calcium 8.6 Total Bilirubin 0.9 AST 25 ALT 13 Alkaline Phosphatase 58 Total Protein 6.0 L Albumin 3.4 L Quality VTE Prophylaxis VTE prophylaxis: mechanical ordered Hospitalist [facility] Advance Care Plan I have confirmed that the patient's Advanced Care Plan is present, code status is documented, or surrogate decision maker is listed in patient medical record.: Yes Medication Reconciliation I have utilized all available resources to obtain, update and review the patients current medications (includes all prescriptions, OTC, herbals, cannabis, and nutritional supplements).: Yes
--- NOTE | 2024-01-31 16:31 | WPDNEUROSGCN ---
Assessment and Plan Assessment and plan (1) Compression fracture of L1 lumbar vertebra: Code(s): S32.010A - Wedge compression fracture of first lumbar vertebra, initial encounter for closed fracture Status: Acute Plan Laina is an 83-year-old female with an apparent L1 compression fracture with mild compression deformity. If there is any question about the acute nature of the fracture MRI could be helpful to look for edema within the bone. She has significant spondylosis and degeneration in other areas of her lumbar spine that could cause pain. This will cloud the situation. She is complaining of pain in the area of L1. From the standpoint of this injury, appropriate bracing with an LSO brace and pain medication and participation in physical therapy is the correct management. If she can not be made ambulatory by these means then vertebroplasty could be considered but an MRI would need to be done 1st to demonstrate the acuity of the fracture. She is currently without neurologic deficit. Consult date: 01/29/24 HPI: Laina Kirk is a 83 year old female Who experienced a syncopal or near syncopal episode and a fall down 1-2 steps onto her back resulting in pain in her back without radiation. This made it difficult for her to ambulate but she was ambulatory at the scene and has been in the hospital. CT scan was performed which demonstrates a mild compression deformity at L1. By way of past medical history she has back issues that have been treated in various ways including recent admission to [facility] and being in a rehab for a short stay. She lives alone but has friends and family that live nearby and assist her. She has not experiencing any new muscle group weakness dermatomal numbness. She does not have any bowel or bladder difficulty. Her pain is worse when she is upright. It is better if she is supine. Review of Systems Review of Systems: All systems reviewed & are unremarkable except as noted in HPI and below Denies chills, Denies fever, Denies weight gain and Denies weight loss Eyes Denies change in vision and Denies diplopia ENT Denies disequilibrium Card Denies chest pain and Denies dyspnea Resp Denies cough and Denies dyspnea GI Denies abdominal pain, Denies change in bowel habits, Denies fecal incontinence and Denies vomiting Denies hematuria, Denies oliguria, Denies difficulty urinating, Denies dysuria, Denies urinary frequency, Denies urinary hesitancy, Denies urinary incontinence and Denies urinary urgency Musc Reports as per HPI Skin/ Breast Reports system reviewed and no additional complaints, except as documented Neuro Reports as per HPI Psych Reports no additional complaints, Denies depression and Denies hopelessness Endo Reports no additional complaints and Denies polyuria Arden/ Lymph Reports no additional complaints Aller/ Immun Reports no additional complaints [facility] Past Medical History Medical History Acute hyponatremia (~06/2022) Chronic low back pain COVID (~07/2021) Degenerative disc disease Dyslipidemia Essential (primary) hypertension GERD without esophagitis Osteoarthritis Osteopenia Seasonal allergies Vitamin D deficiency Surgical History Surgical History History of cataract surgery 2014/ History of esophageal dilatation (~07/2022) History of hysterectomy History of left knee replacement 2000 History of tonsillectomy Family History Family History Other Diabetes mellitus Hypertension Social History Social History Social History: Surrogate medical decision maker: Leanne Kirk, daughter. Code status: Full code. Smoking packs per day: 1 Smoking cigarettes per day: 20.0 Years smoked: 30 Smoking pack-years: 30.00 Smoking status: Former smoker Tobacco type: cigarettes Second hand tobacco smoke exposure: No Smoking end date: 02/26/79 Additional smoking assessment comments: quit 34 years ago Alcohol intake: never Alcohol use details: seldom Substance use: never Substance use type: does not use Do You Feel Safe in your Home?: Yes Lack of Transportation: No Lack of Food: Never True Current Housing: I Have Housing Concerned About Future Housing: No Difficulty Paying Gas/Electric Bills: No Difficulty Paying for Meds: No Currently Unemployed: No Education: High School Diploma/GED Difficulty w/ Childcare or Family Care: No Living arrangements: alone Occupation/Education: retired Spiritual care concerns: No Agree to blood products: Yes Meds Home Medications and Allergies Home Medications Medication Instructions Recorded Confirmed Type calcium 250 mg (phosphate)-vit D3 1 tablet PO DAILY 03/04/19 01/28/24 History 12.5 mcg (500 unit) chewable tablet (Citracal-D3 Gummies) psyllium husk 0.4 gram capsule 0.4 g PO DAILY PRN Constipation 03/08/21 01/28/24 History (Metamucil) lisinopril 40 mg tablet 40 mg PO DAILY #90 tabs 12/24/23 01/28/24 Rx acetaminophen 500 mg tablet 1,000 mg PO TID PRN pain 12/27/23 01/28/24 History (Tylenol Extra Strength) duloxetine 30 mg capsule,delayed 30 mg PO DAILY #90 caps 12/27/23 01/28/24 Rx release lidocaine 5 % topical patch 1 patch topical DAILY #30 ea 12/27/23 01/28/24 Rx (DermacinRx Lidocan) [id number] 4 mg-folic acid 1 tablet PO DAILY 12/27/23 01/28/24 History 200 mcg-vit K 25 mcg-lutein tablet (Centrum Minis Women 50 Plus) amlodipine 10 mg tablet 10 mg PO DAILY #90 tabs 01/11/24 01/28/24 Rx biotin 10,000 mcg chewable tablet 10,000 mcg PO DAILY 01/28/24 01/28/24 History (Hair, Skin and Nails (biotin)) gabapentin 100 mg capsule 100 mg PO BID 01/28/24 01/28/24 History gabapentin 100 mg tablet 200 mg PO HS 01/28/24 01/28/24 History Allergies Allergy/AdvReac Type Severity Reaction Status Date / Time Sulfa (Sulfonamide Allergy Mild Hives Verified 01/28/24 10:09 Antibiotics) Vital Signs Vital Signs - 24 hr 01/30/24 21:48 01/30/24 20:00 01/30/24 20:00 Temperature 98.2 F Pulse Rate 68 74 Respiratory Rate 18 Blood Pressure 146/59 H Pulse Oximetry 97 Oxygen Delivery Room Air 01/31/24 00:00 01/30/24 20:00 01/31/24 06:00 Temperature 98.2 F Pulse Rate 61 66 Respiratory Rate 20 Blood Pressure 132/55 L Pulse Oximetry 97 95 Oxygen Delivery Room Air 01/31/24 04:00 01/31/24 08:00 01/31/24 12:53 Temperature Pulse Rate 65 Respiratory Rate Blood Pressure 90/50 L Pulse Oximetry Oxygen Delivery Room Air 01/31/24 14:00 Temperature 97.5 F L Pulse Rate 66 Respiratory Rate 18 Blood Pressure 126/64 Pulse Oximetry 100 Oxygen Delivery Exam Narrative: General: cooperative, no acute distress, well developed, alert and awake Orientation/Consciousness: oriented to person, oriented to place and oriented to time Constitutional Limitations: no limitations Other: The patient is a normally developed, normal appearing male sitting on the examination table in no acute distress. He is awake, alert, and oriented x3 with good fund of knowledge, recall of events, and fluent speech. HENOR Head: normocephalic and atraumatic Ears: external ears normal Face/Nose/Sinus: Normal external nose present Eyes Eyelids: eyelids normal Pupils: Yes Pupils normal by confrontation EOM: EOMs intact bilaterally Neck General: Yes no meningeal signs, Yes supple and Yes no JVD Resp Effort/Inspection: normal respiratory effort and able to speak in complete sentences Cardio Rate: Yes regular rate GI Inspection: No abdominal distension Musc Straight leg raise is negative bilaterally. Robinson?s test is negative bilaterally. Skin General: normal color Neuro General: Yes oriented to person, Yes oriented to place, Yes oriented to time, Yes normal cognition and Yes no meningeal signs Cranial Nerves: Yes CN's II-XII intact bilaterally Other: Motor: Strength is normal, 5/5, throughout all muscle groups of the bilateral upper and lower extremities to direct confrontation. Sensory: Sensation is intact to light touch throughout the upper and lower extremities bilaterally. Reflexes: deep tendon reflexes are difficult to elicit at the knees or ankles bilaterally. There is no clonus. Gait: Gait, station, and transfers were not tested Psych Appearance: grossly normal Mental status: Yes mental status grossly normal Mood: congruent mood Affect: Yes normal affect Speech/Movement: Normal speech and movement present Attitude: Yes cooperative Thought Content: Normal thought Review of studies: CT scan of the lumbar spine demonstrates a scoliosis of the mid to low lumbar spine with significant spondylosis and disc level degeneration. There is mild compression deformity related to apparently acute fracture at L1. Results Labs 01/31/24 07:26 01/31/24 07:26 Labs: Short CBC 01/31/24 Range/Units 07:26 WBC 9.0 (4.5-10.0) K/mm3 Hgb 11.7 L (12.0-15.0) g/dL Hct 36.6 L (37.0-47.0) % Plt Count 164 (150-375) k/mm3 BMP 01/31/24 07:26 Sodium 135 L Potassium 3.8 Chloride 100 Carbon Dioxide 32 H BUN 19 H Creatinine 0.70 Glucose 102 Calcium 8.6 Liver Function 01/31/24 Range/Units 07:26 Total Bilirubin 0.9 (0.2-1.3) mg/dL AST 25 (14-36) U/L ALT 13 (6-35) U/L Alkaline Phosphatase 58 (38-126) U/L Albumin 3.4 L (3.5-5.1) g/dL
[2024-01-31] MEDS: GABAPENTIN 100 MG CAPSULE 200 MG PO (20:33)
[2024-01-31] MEDS: HYDROcodone/acetaminophen (*CRX) 5-325 MG TABLET 1 TAB PO (20:39)
[2024-02-01] VITALS (9 sets, daily range): BP systolic 102–138; BP diastolic 35–50; PULSE 59–96; RESP 16–20; TEMP 36.3–36.8; O2SAT 91–98
[2024-02-01 06:37] LABS: Hematocrit 33.6 % (37.0-47.0); Hemoglobin 11.2 g/dL (12.0-15.0); Mean Corpuscular HGB Conc 33.3 g/dl (32-36); Mean Corpuscular Hemoglobin 31.5 pg (26-34); Mean Corpuscular Volume 94.6 fl (80-100); Mean Platelet Volume 10.3 fl (7.4-10.4); Platelet Count Result 179 k/mm3 (150-375); Red Blood Count 3.55 M/mm3 (4.2-5.4); Red Cell Distribution Width 13.1 % (11.5-14.5); White Blood Count 8.3 K/mm3 (4.5-10.0)
[2024-02-01 06:47] LABS: Alanine Aminotransferase 14 U/L (6-35); Albumin Level 3.3 g/dL (3.5-5.1); Alkaline Phosphatase 65 U/L (38-126); Anion Gap 2 mmol/L (4-12); Aspartate Amino Transferase 23 U/L (14-36); Bilirubin,Total 0.6 mg/dL (0.2-1.3); Blood Urea Nitrogen 20 mg/dL (7-17); Calcium 8.3 mg/dL (8.4-10.2); Carbon Dioxide 33 mmol/L (22-30); Chloride 100 mmol/L (98-107); Estimated CRCL calculation 56 ml/min; Estimated Glomerular Filt Rate > 60; Glucose 98 mg/dL (65-110); Potassium 3.9 mmol/L (3.4-5.0); Sodium 135 mmol/L (137-145)
[2024-02-01] MEDS: GABAPENTIN 100 MG CAPSULE PO ×2 (08:12→16:31)
[2024-02-01] MEDS: MULTIVITAMINS /C LUTEIN (CENTRUM SILVER) TABLET *BKC 1 TAB PO (08:12)
[2024-02-01] MEDS: amLODIPine BESYLATE 10 MG TABLET PO (08:12)
[2024-02-01] MEDS: MORPHINE SULFATE (*CRX) 2 MG/ML INJ IV PUSH (08:12)
[2024-02-01] MEDS: DULoxetine HCL 30 MG CAPSULE.DR PO (08:12)
[2024-02-01] MEDS: lisinopriL 20 MG TABLET 40 MG PO (08:12)
[2024-02-01] MEDS: CALCIUM CITRATE 315 MG/VITAMIN D 6.25 MCG (250 UNITS) TAB 1 TABLET PO (08:12)
[2024-02-01] MEDS: guaiFENesin 12 HR 600 MG TABCR PO ×2 (08:12→20:44)
[2024-02-01] MEDS: FLUTICASONE PROPIONATE 0.05% NA SPR 16 GM BTL (*BKC) 1 SPRAY NASAL ×2 (09:00→20:47)
[2024-02-01] MEDS: PSYLLIUM POWDER PACKET 1 PACKET PO (12:12)
[2024-02-01] MEDS: HYDROcodone/acetaminophen (*CRX) 10-325 MG TABLET 1 TAB PO (12:12)
--- NOTE | 2024-02-01 13:08 | PCOTNOTE ---
Patient out of the room at the room at this time. Patient down having testing.
[2024-02-01] MEDS: HYDROcodone/acetaminophen (*CRX) 5-325 MG TABLET 1 TAB PO (16:31)
--- NOTE | 2024-02-01 17:46 | PM.IMPN ---
Progress Note: A&P Assessment and Plan (1) Syncope: Code(s): R55 - Syncope and collapse Status: Acute Assessment and Plan: - head CT: No intracranial hemorrhage, mass, or acute infarct. 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 - obtain recent head CT done in November from [facility], if hygromas are new finding then consider Neurology consultation - EKG, initial: Sinus rhythm, rate 65. - CXR: No acute cardiopulmonary disease. - Troponin: <0.012 x2, 3rd troponin ordered - BNP, normal for age - obtain orthostatics, recent increase in amlodipine - echo, previous (06/2022): Normal systolic function, estimated EF 65-70%, grade 1 diastolic dysfunction. - no cardiac catheterization or stress test on file - telemetry monitoring (2) Ground-level fall: Code(s): W18.30XA - Fall on same level, unspecified, initial encounter Status: Acute Assessment and Plan: - trauma workup significant for an acute appearing L1 compression fracture. Head CT: No intracranial hemorrhage, mass, or acute infarct. C-spine CT: Severe cervical spondylosis. No acute osseous abnormality. Thoracic/lumbar spine CT: 1. Acute appearing L1 compression fracture with minimal anterior vertebral body height loss. No other acute osseous abnormality the thoracic or lumbar spine. 2. Mild S-shaped scoliosis of the lumbar and lower thoracic spine with mild to moderate thoracic and severe lumbar spondylosis. 3. 2 mm nonobstructing left renal stone. CXR: No acute cardiopulmonary disease. - fall precautions - PT/OT eval for reduced mobility and placement evaluation - care coordination for rehab evaluation (3) Compression fracture of L1 lumbar vertebra: Code(s): S32.010A - Wedge compression fracture of first lumbar vertebra, initial encounter for closed fracture Status: Acute Assessment and Plan: Neurosurgery consulted and ordered TLSO brace. MRI of the lumbar spine shows acute/subacute L1 burst fracture and acute/subacute S3 fracture. Family wants to discuss with Neurosurgery and make a decision to pursue vertebroplasty. above (4) Essential (primary) hypertension: Code(s): I10 - Essential (primary) hypertension Status: Chronic Assessment and Plan: - chronic - continue home medications: Amlodipine 10 mg daily, lisinopril 40 mg daily - monitor Plan Diet: Heart healthy GI Prophylaxis: Not currently indicated DVT Prophylaxis: SCDs Lines: Peripheral Code Status: Full code Subjective Date/time seen: 02/01/24 17:46 Interval history: Patient still complains of pain. MRI of the lumbar spine shows acute/subacute L1 burst fracture and acute/subacute S3 fracture. Family wants to discuss with Neurosurgery and make a decision to pursue vertebroplasty. Review of Systems Review of Systems: All systems reviewed & are unremarkable except as noted in HPI and below Exam Narrative: right effusion. Left with scant fluid, otherwise normal TM. heart and lungs fine. strong in all extrem. A/Ox4. no nystagmus or facial droop. Const: General: comfortable and no acute distress Other: , female, nontoxic appearance HENMT: Other: Effusion to right tympanic membrane with mild bulge. No erythema or prominent vasculature. Scant fluid to left TM, otherwise normal appearance. Eyes: General: appearance normal, both eyes and all related structures Sclera: sclerae normal Pupils: Equal, round and reactive pupils present EOM: EOMs intact bilaterally Other: No nystagmus. Resp: Effort & Inspection: normal respiratory effort Auscultation: clear to auscultation bilaterally Cardio: Rate: regular rate Rhythm: regular rhythm Other: S1-S2 present without murmur, rub, ectopy GI: Other: Abdomen soft, nondistended. Normoactive bowel sounds in all quadrants. Very mild tenderness in the right lower quadrant. Skin: General skin exam: normal color and no rashes or lesions noted Wounds: no wounds Neuro: Cranial nerves: Yes Equal, round and reactive pupils present Speech: normal speech Motor exam (neuro): 5/5 motor strength present throughout Sensory Exam: normal sensation Other: A&O 4 Extrem: General: normal to inspection Psych: Mental Status: mental status grossly normal Affect: normal affect Other: Good insight and judgment, pleasant Objective Data Vital Signs Vital Signs: Vital Signs - 24 hr 01/31/24 20:00 01/31/24 21:50 01/31/24 20:00 Temperature 97.5 F L Pulse Rate 77 65 63 Respiratory Rate 18 20 Blood Pressure 129/45 L Pulse Oximetry 100 90 Oxygen Delivery Room Air 02/01/24 00:00 02/01/24 05:00 02/01/24 04:00 Temperature 97.3 F L Pulse Rate 65 64 59 L Respiratory Rate 20 Blood Pressure 138/50 L Pulse Oximetry 95 Oxygen Delivery 02/01/24 08:02 Temperature Pulse Rate 67 Respiratory Rate Blood Pressure Pulse Oximetry Oxygen Delivery Intake/Output Intake/Output: Intake & Output 01/29/24 01/30/24 01/31/24 02/01/24 23:59 23:59 23:59 23:59 Intake Total 1600 2736 2680 1470 Output Total 470 889 0994 900 Balance 700 2036 1680 570 Meds/Results Medications: Active Medications Generic Name Dose Route Start Last Admin Trade Name Freq PRN Reason Stop Dose Admin Acetaminophen 1,000 mg 01/28/24 22:32 01/30/24 20:38 Acetaminophen 500 Mg Tablet PO 1,000 mg TID PRN Administration pain 1-3 Hydrocodone Bitart/Acetaminophen 1 tab 01/28/24 23:00 02/01/24 16:31 Hydrocodone/Acetaminophen (*Crx) 5-325 Mg Tablet PO 1 tab Q6H PRN Administration Pain Rated 4-6 Hydrocodone Bitart/Acetaminophen 1 tab 01/30/24 14:27 02/01/24 12:12 Hydrocodone/Acetaminophen (*Crx) 10-325 Mg Tablet PO 1 tab Q6H PRN Administration Pain Rated 7-10 Amlodipine Besylate 10 mg 01/29/24 09:00 02/01/24 08:12 Amlodipine Besylate 10 Mg Tablet PO 10 mg DAILY YULIA Administration Benzocaine 1 lozenge 01/31/24 12:52 Benzocaine/Menthol (*Bkc) 18 Ea Lozenge PO PRN PRN Sore Throat Calcium Citrate 1 tablet 01/29/24 09:00 02/01/24 08:12 Calcium Citrate 315 Mg/Vitamin D 6.25 Mcg (250 Units) Tab PO 1 tablet DAILY YULIA Administration Duloxetine HCl 30 mg 01/29/24 09:00 02/01/24 08:12 Duloxetine Hcl 30 Mg Capsule.Dr PO 30 mg DAILY YULIA Administration Fluticasone Propionate 1 spray 01/28/24 22:45 02/01/24 09:00 Fluticasone Propionate 0.05% Na Spr 16 Gm Btl (*Bkc) NASAL 1 spray Q12HR YULIA Administration Gabapentin 200 mg 01/28/24 22:40 01/31/24 20:33 Gabapentin 100 Mg Capsule PO 200 mg HS YULIA Administration Gabapentin 100 mg 01/29/24 09:00 02/01/24 16:31 Gabapentin 100 Mg Capsule PO 100 mg BID YULIA Administration Guaifenesin 600 mg 01/28/24 22:45 02/01/24 08:12 Guaifenesin 12 Hr 600 Mg Tabcr PO 600 mg Q12HR YULIA Administration Lidocaine 1 patch 01/29/24 09:00 01/31/24 08:40 Lidocaine 5% Patch TRANSDERM 1 patch DAILY YULIA Administration Lisinopril 40 mg 01/29/24 09:00 02/01/24 08:12 Lisinopril 20 Mg Tablet PO 40 mg DAILY YULIA Administration Meclizine HCl 6.25 mg 01/28/24 20:39 01/31/24 10:54 Meclizine Hcl 6.25 Mg Tablet PO 6.25 mg TID PRN Administration Dizziness Morphine Sulfate 2 mg 01/28/24 23:00 02/01/24 08:12 Morphine Sulfate (*Crx) 2 Mg/Ml Inj IV PUSH 2 mg Q4H PRN Administration Pain Rated 7-10 Multivitamins/Minerals 1 tab 01/29/24 09:00 02/01/24 08:12 Multivitamins /C Lutein (Centrum Silver) Tablet *Bkc PO 1 tab DAILY YULIA Administration Ondansetron HCl 4 mg 01/30/24 14:22 01/31/24 10:54 Ondansetron Inj 4 Mg/2 Ml Vial IV PUSH 4 mg Q4H PRN Administration Nausea And Vomiting Psyllium Hydrophilic Mucilloid 1 packet 01/31/24 09:00 02/01/24 12:12 Psyllium Powder Packet PO 1 packet DAILY YULIA Administration Radiology Results: ITS Impressions Cervical Spine CT 01/28/24 10:48 IMPRESSION: 1. Severe cervical spondylosis. No acute osseous abnormality. Head CT 01/28/24 10:48 Impression: No intracranial hemorrhage, mass, or acute infarct. 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 Thoracic/Lumbar Spine CT 01/28/24 10:59 IMPRESSION: 1. Acute appearing L1 compression fracture with minimal anterior vertebral body height loss. No other acute osseous abnormality the thoracic or lumbar spine. 2. Mild S-shaped scoliosis of the lumbar and lower thoracic spine with mild to moderate thoracic and severe lumbar spondylosis. 3. 2 mm nonobstructing left renal stone. Chest X-Ray 01/28/24 13:55 IMPRESSION: 1. No acute cardiopulmonary disease. Lumbar Spine MRI 02/01/24 14:12 IMPRESSION: 1. Acute/subacute L1 burst fracture. 2. Acute/subacute S3 fracture. 3. Severe lumbar spondylosis. 4. Lumbar dextroscoliosis. Labs Labs: Laboratory Results - last 24 hr 02/01/24 06:07 WBC 8.3 RBC 3.55 L Hgb 11.2 L Hct 33.6 L MCV 94.6 MCH 31.5 MCHC 33.3 RDW 13.1 Plt Count 179 MPV 10.3 Sodium 135 L Potassium 3.9 Chloride 100 Carbon Dioxide 33 H Anion Gap 2 L BUN 20 H Creatinine 0.70 Estim Creat Clear Calc 56 Estimated GFR > 60 Glucose 98 Calcium 8.3 L Total Bilirubin 0.6 AST 23 ALT 14 Alkaline Phosphatase 65 Total Protein 6.0 L Albumin 3.3 L Quality VTE Prophylaxis VTE prophylaxis: mechanical ordered Hospitalist [facility] Advance Care Plan I have confirmed that the patient's Advanced Care Plan is present, code status is documented, or surrogate decision maker is listed in patient medical record.: Yes Medication Reconciliation I have utilized all available resources to obtain, update and review the patients current medications (includes all prescriptions, OTC, herbals, cannabis, and nutritional supplements).: Yes
[2024-02-01] MEDS: GABAPENTIN 100 MG CAPSULE 200 MG PO (20:44)
[2024-02-01] MEDS: LIDOCAINE 5% PATCH 1 PATCH TRANSDERM (20:47)
[2024-02-02] VITALS (9 sets, daily range): BP systolic 129–166; BP diastolic 49–68; PULSE 62–79; RESP 16; TEMP 36–36.6; O2SAT 92–97
[2024-02-02 07:00] LABS: Hematocrit 33.8 % (37.0-47.0); Mean Corpuscular HGB Conc 32.5 g/dl (32-36); Mean Corpuscular Hemoglobin 30.4 pg (26-34); Mean Corpuscular Volume 93.4 fl (80-100); Mean Platelet Volume 9.8 fl (7.4-10.4); Platelet Count Result 197 k/mm3 (150-375); Red Blood Count 3.62 M/mm3 (4.2-5.4); Red Cell Distribution Width 12.8 % (11.5-14.5); White Blood Count 8.4 K/mm3 (4.5-10.0)
[2024-02-02 07:20] LABS: Alanine Aminotransferase 15 U/L (6-35); Albumin Level 3.3 g/dL (3.5-5.1); Alkaline Phosphatase 75 U/L (38-126); Anion Gap 4 mmol/L (4-12); Aspartate Amino Transferase 24 U/L (14-36); Bilirubin,Total 0.8 mg/dL (0.2-1.3); Blood Urea Nitrogen 14 mg/dL (7-17); Calcium 8.5 mg/dL (8.4-10.2); Carbon Dioxide 30 mmol/L (22-30); Chloride 99 mmol/L (98-107); Estimated CRCL calculation 64 ml/min; Estimated Glomerular Filt Rate > 60; Glucose 104 mg/dL (65-110); Potassium 3.5 mmol/L (3.4-5.0); Sodium 133 mmol/L (137-145)
[2024-02-02] MEDS: amLODIPine BESYLATE 10 MG TABLET PO (08:21)
[2024-02-02] MEDS: DULoxetine HCL 30 MG CAPSULE.DR PO (08:21)
[2024-02-02] MEDS: MECLIZINE HCL 6.25 MG TABLET PO (08:21)
[2024-02-02] MEDS: guaiFENesin 12 HR 600 MG TABCR PO ×2 (08:21→20:15)
[2024-02-02] MEDS: CALCIUM CITRATE 315 MG/VITAMIN D 6.25 MCG (250 UNITS) TAB 1 TABLET PO (08:21)
[2024-02-02] MEDS: lisinopriL 20 MG TABLET 40 MG PO (08:21)
[2024-02-02] MEDS: GABAPENTIN 100 MG CAPSULE PO ×2 (08:22→17:04)
[2024-02-02] MEDS: MULTIVITAMINS /C LUTEIN (CENTRUM SILVER) TABLET *BKC 1 TAB PO (08:22)
[2024-02-02] MEDS: HYDROcodone/acetaminophen (*CRX) 10-325 MG TABLET 1 TAB PO ×3 (08:22→20:14)
[2024-02-02] MEDS: FLUTICASONE PROPIONATE 0.05% NA SPR 16 GM BTL (*BKC) 1 SPRAY NASAL ×2 (08:25→20:15)
[2024-02-02] MEDS: PSYLLIUM POWDER PACKET 1 PACKET PO (08:33)
--- NOTE | 2024-02-02 10:34 | P.PNIM_ITS ---
Progress Note: A&P Assessment and Plan (1) Syncope: Code(s): R55 - Syncope and collapse Status: Acute Assessment and Plan: - head CT: No intracranial hemorrhage, mass, or acute infarct. 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 - obtain recent head CT done in November from [facility], if hygromas are new finding then consider Neurology consultation MRI Lumbar spine: 1. Acute/subacute L1 burst fracture. 2. Acute/subacute S3 fracture. 3. Severe lumbar spondylosis. 4. Lumbar dextroscoliosis CT Thoracic/Lumbar spine CT: 1. Acute appearing L1 compression fracture with minimal anterior vertebral body height loss. No other acute osseous abnormality the thoracic or lumbar spine. 2. Mild S-shaped scoliosis of the lumbar and lower thoracic spine with mild to moderate thoracic and severe lumbar spondylosis. 3. 2 mm nonobstructing left renal stone. - EKG, initial: Sinus rhythm, rate 65. - CXR: No acute cardiopulmonary disease. - Troponin: <0.012 x2, 3rd troponin ordered - BNP, normal for age - obtain orthostatics, recent increase in amlodipine - echo, previous (06/2022): Normal systolic function, estimated EF 65-70%, grade 1 diastolic dysfunction. - no cardiac catheterization or stress test on file - telemetry monitoring (2) Ground-level fall: Code(s): W18.30XA - Fall on same level, unspecified, initial encounter Status: Acute Assessment and Plan: - trauma workup significant for an acute appearing L1 compression fracture. Head CT: No intracranial hemorrhage, mass, or acute infarct. C-spine CT: Severe cervical spondylosis. No acute osseous abnormality. Thoracic/lumbar spine CT: 1. Acute appearing L1 compression fracture with minimal anterior vertebral body height loss. No other acute osseous abnormality the thoracic or lumbar spine. 2. Mild S-shaped scoliosis of the lumbar and lower thoracic spine with mild to moderate thoracic and severe lumbar spondylosis. 3. 2 mm nonobstructing left renal stone. CXR: No acute cardiopulmonary disease. - fall precautions - PT/OT eval for reduced mobility and placement evaluation - care coordination for rehab evaluation (3) Compression fracture of L1 lumbar vertebra: Code(s): S32.010A - Wedge compression fracture of first lumbar vertebra, initial encounter for closed fracture Status: Acute Assessment and Plan: Neurosurgery consulted and ordered TLSO brace. MRI of the lumbar spine shows acute/subacute L1 burst fracture and acute/duval bacute S3 fracture. Family wants to discuss with Neurosurgery and make a decision to pursue vertebroplasty. MRI Lumbar spine: 1. Acute/subacute L1 burst fracture. 2. Acute/subacute S3 fracture. 3. Severe lumbar spondylosis. 4. Lumbar dextroscoliosis CT Thoracic/Lumbar spine CT: 1. Acute appearing L1 compression fracture with minimal anterior vertebral body height loss. No other acute osseous abnormality the thoracic or lumbar spine. 2. Mild S-shaped scoliosis of the lumbar and lower thoracic spine with mild to moderate thoracic and severe lumbar spondylosis. 3. 2 mm nonobstructing left renal stone. (4) Essential (primary) hypertension: Code(s): I10 - Essential (primary) hypertension Status: Chronic Assessment and Plan: - chronic - continue home medications: Amlodipine 10 mg daily, lisinopril 40 mg daily - monitor Plan Diet: Heart healthy GI Prophylaxis: Not currently indicated DVT Prophylaxis: SCDs Lines: Peripheral Code Status: Full code Subjective Date/time seen: 02/02/24 10:34 Interval history: Family members were concerned about pain. Ordered KUB shows no bowel obstruction . Will add laxatives. Family wants to discuss with Neurosurgeon about risk vs benefits of undergoing surgery. MRA shows L1 burst fracture and S 3 fracture. Review of Systems Review of Systems: All systems reviewed & are unremarkable except as noted in HPI and below Exam Narrative: right effusion. Left with scant fluid, otherwise normal TM. heart and lungs fine. strong in all extrem. A/Ox4. no nystagmus or facial droop. Const: General: comfortable and no acute distress Other: , female, nontoxic appearance HENMT: Other: Effusion to right tympanic membrane with mild bulge. No erythema or prominent vasculature. Scant fluid to left TM, otherwise normal appearance. Eyes: General: appearance normal, both eyes and all related structures Sclera: sclerae normal Pupils: Equal, round and reactive pupils present EOM: EOMs intact bilaterally Other: No nystagmus. Resp: Effort & Inspection: normal respiratory effort Auscultation: clear to auscultation bilaterally Cardio: Rate: regular rate Rhythm: regular rhythm Other: S1-S2 present without murmur, rub, ectopy GI: Other: Abdomen soft, nondistended. Normoactive bowel sounds in all quadrants. Very mild tenderness in the right lower quadrant. Skin: General skin exam: normal color and no rashes or lesions noted Wounds: no wounds Neuro: Cranial nerves: Yes Equal, round and reactive pupils present Speech: normal speech Motor exam (neuro): 5/5 motor strength present throughout Sensory Exam: normal sensation Other: A&O 4 Extrem: General: normal to inspection Psych: Mental Status: mental status grossly normal Affect: normal affect Other: Good insight and judgment, pleasant Objective Data Vital Signs Vital Signs: Vital Signs - 24 hr 02/01/24 14:00 02/01/24 12:02 02/01/24 16:02 Temperature 98.2 F Pulse Rate 96 77 74 Respiratory Rate 18 Blood Pressure 102/35 L Pulse Oximetry 98 Oxygen Delivery 02/01/24 20:46 02/01/24 20:00 02/01/24 20:00 Temperature 97.9 F Pulse Rate 69 71 Respiratory Rate 16 Blood Pressure 131/50 L Pulse Oximetry 91 Oxygen Delivery Room Air 02/02/24 00:00 02/02/24 04:00 02/02/24 06:00 Temperature 97.8 F Pulse Rate 77 78 72 Respiratory Rate 16 Blood Pressure 139/49 L Pulse Oximetry 92 Oxygen Delivery 02/02/24 08:00 Temperature Pulse Rate 79 Respiratory Rate Blood Pressure Pulse Oximetry Oxygen Delivery Intake/Output Intake/Output: Intake & Output 01/30/24 01/31/24 02/01/24 02/02/24 23:59 23:59 23:59 23:59 Intake Total 2736 2680 2970 1058 Output Total 700 1000 900 750 Balance 2036 1680 2070 308 Meds/Results Medications: Active Medications Generic Name Dose Route Start Last Admin Trade Name Freq PRN Reason Stop Dose Admin Acetaminophen 1,000 mg 01/28/24 22:32 01/30/24 20:38 Acetaminophen 500 Mg Tablet PO 1,000 mg TID PRN Administration pain 1-3 Hydrocodone Bitart/Acetaminophen 1 tab 01/28/24 23:00 02/01/24 16:31 Hydrocodone/Acetaminophen (*Crx) 5-325 Mg Tablet PO 1 tab Q6H PRN Administration Pain Rated 4-6 Hydrocodone Bitart/Acetaminophen 1 tab 01/30/24 14:27 02/02/24 08:22 Hydrocodone/Acetaminophen (*Crx) 10-325 Mg Tablet PO 1 tab Q6H PRN Administration Pain Rated 7-10 Amlodipine Besylate 10 mg 01/29/24 09:00 02/02/24 08:21 Amlodipine Besylate 10 Mg Tablet PO 10 mg DAILY YULIA Administration Benzocaine 1 lozenge 01/31/24 12:52 Benzocaine/Menthol (*Bkc) 18 Ea Lozenge PO PRN PRN Sore Throat Calcium Citrate 1 tablet 01/29/24 09:00 02/02/24 08:21 Calcium Citrate 315 Mg/Vitamin D 6.25 Mcg (250 Units) Tab PO 1 tablet DAILY YULIA Administration Duloxetine HCl 30 mg 01/29/24 09:00 02/02/24 08:21 Duloxetine Hcl 30 Mg Capsule.Dr PO 30 mg DAILY YULIA Administration Fluticasone Propionate 1 spray 01/28/24 22:45 02/02/24 08:25 Fluticasone Propionate 0.05% Na Spr 16 Gm Btl (*Bkc) NASAL 1 spray Q12HR YULIA Administration Gabapentin 200 mg 01/28/24 22:40 02/01/24 20:44 Gabapentin 100 Mg Capsule PO 200 mg HS YULIA Administration Gabapentin 100 mg 01/29/24 09:00 02/02/24 08:22 Gabapentin 100 Mg Capsule PO 100 mg BID YULIA Administration Guaifenesin 600 mg 01/28/24 22:45 02/02/24 08:21 Guaifenesin 12 Hr 600 Mg Tabcr PO 600 mg Q12HR YULIA Administration Lidocaine 1 patch 01/29/24 09:00 02/01/24 20:47 Lidocaine 5% Patch TRANSDERM 1 patch DAILY YULIA Administration Lisinopril 40 mg 01/29/24 09:00 02/02/24 08:21 Lisinopril 20 Mg Tablet PO 40 mg DAILY YULIA Administration Meclizine HCl 6.25 mg 01/28/24 20:39 02/02/24 08:21 Meclizine Hcl 6.25 Mg Tablet PO 6.25 mg TID PRN Administration Dizziness Morphine Sulfate 2 mg 01/28/24 23:00 02/01/24 08:12 Morphine Sulfate (*Crx) 2 Mg/Ml Inj IV PUSH 2 mg Q4H PRN Administration Pain Rated 7-10 Multivitamins/Minerals 1 tab 01/29/24 09:00 02/02/24 08:22 Multivitamins /C Lutein (Centrum Silver) Tablet *Bkc PO 1 tab DAILY YULIA Administration Ondansetron HCl 4 mg 01/30/24 14:22 01/31/24 10:54 Ondansetron Inj 4 Mg/2 Ml Vial IV PUSH 4 mg Q4H PRN Administration Nausea And Vomiting Psyllium Hydrophilic Mucilloid 1 packet 01/31/24 09:00 02/02/24 08:33 Psyllium Powder Packet PO 1 packet DAILY YULIA Administration Radiology Results: ITS Impressions Cervical Spine CT 01/28/24 10:48 IMPRESSION: 1. Severe cervical spondylosis. No acute osseous abnormality. Head CT 01/28/24 10:48 Impression: No intracranial hemorrhage, mass, or acute infarct. 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 Thoracic/Lumbar Spine CT 01/28/24 10:59 IMPRESSION: 1. Acute appearing L1 compression fracture with minimal anterior vertebral body height loss. No other acute osseous abnormality the thoracic or lumbar spine. 2. Mild S-shaped scoliosis of the lumbar and lower thoracic spine with mild to m oderate thoracic and severe lumbar spondylosis. 3. 2 mm nonobstructing left renal stone. Chest X-Ray 01/28/24 13:55 IMPRESSION: 1. No acute cardiopulmonary disease. Lumbar Spine MRI 02/01/24 14:12 IMPRESSION: 1. Acute/subacute L1 burst fracture. 2. Acute/subacute S3 fracture. 3. Severe lumbar spondylosis. 4. Lumbar dextroscoliosis. Labs Labs: Laboratory Results - last 24 hr 02/02/24 06:53 WBC 8.4 RBC 3.62 L Hgb 11.0 L Hct 33.8 L MCV 93.4 MCH 30.4 MCHC 32.5 RDW 12.8 Plt Count 197 MPV 9.8 Sodium 133 L Potassium 3.5 Chloride 99 Carbon Dioxide 30 Anion Gap 4 BUN 14 D Creatinine 0.60 L Estim Creat Clear Calc 64 Estimated GFR > 60 Glucose 104 Calcium 8.5 Total Bilirubin 0.8 AST 24 ALT 15 Alkaline Phosphatase 75 Total Protein 6.0 L Albumin 3.3 L Quality VTE Prophylaxis VTE prophylaxis: mechanical ordered Hospitalist [facility] Advance Care Plan I have confirmed that the patient's Advanced Care Plan is present, code status is documented, or surrogate decision maker is listed in patient medical record.: Yes Medication Reconciliation I have utilized all available resources to obtain, update and review the patients current medications (includes all prescriptions, OTC, herbals, cannabis, and nutritional supplements).: Yes
[2024-02-02] MEDS: polyethylene glycoL 3350 17 GM POWD.PACK PO (11:41)
[2024-02-02] MEDS: MORPHINE SULFATE (*CRX) 2 MG/ML INJ IV PUSH (11:42)
[2024-02-02] MEDS: LIDOCAINE 5% PATCH 1 PATCH TRANSDERM (13:41)
[2024-02-02] MEDS: GABAPENTIN 100 MG CAPSULE 200 MG PO (20:15)
[2024-02-03] VITALS (10 sets, daily range): BP systolic 108–138; BP diastolic 49–73; PULSE 63–91; RESP 14–20; TEMP 36.2–36.7; O2SAT 91–100
[2024-02-03 07:40] LABS: Hematocrit 33.3 % (37.0-47.0); Mean Corpuscular Hemoglobin 30.8 pg (26-34); Mean Corpuscular Volume 93.3 fl (80-100); Mean Platelet Volume 10.2 fl (7.4-10.4); Platelet Count Result 221 k/mm3 (150-375); Red Blood Count 3.57 M/mm3 (4.2-5.4); Red Cell Distribution Width 12.9 % (11.5-14.5); White Blood Count 9.6 K/mm3 (4.5-10.0)
[2024-02-03 07:43] LABS: Alanine Aminotransferase 18 U/L (6-35); Albumin Level 3.3 g/dL (3.5-5.1); Alkaline Phosphatase 84 U/L (38-126); Anion Gap 5 mmol/L (4-12); Aspartate Amino Transferase 24 U/L (14-36); Bilirubin,Total 0.8 mg/dL (0.2-1.3); Blood Urea Nitrogen 17 mg/dL (7-17); Calcium 8.6 mg/dL (8.4-10.2); Carbon Dioxide 29 mmol/L (22-30); Chloride 98 mmol/L (98-107); Estimated CRCL calculation 64 ml/min; Estimated Glomerular Filt Rate > 60; Glucose 98 mg/dL (65-110); Sodium 132 mmol/L (137-145)
[2024-02-03] MEDS: LIDOCAINE 5% PATCH 1 PATCH TRANSDERM (08:26)
[2024-02-03] MEDS: DULoxetine HCL 30 MG CAPSULE.DR PO (08:27)
[2024-02-03] MEDS: amLODIPine BESYLATE 10 MG TABLET PO (08:27)
[2024-02-03] MEDS: MULTIVITAMINS /C LUTEIN (CENTRUM SILVER) TABLET *BKC 1 TAB PO (08:28)
[2024-02-03] MEDS: FLUTICASONE PROPIONATE 0.05% NA SPR 16 GM BTL (*BKC) 1 SPRAY NASAL ×2 (08:28→20:59)
[2024-02-03] MEDS: guaiFENesin 12 HR 600 MG TABCR PO ×2 (08:28→20:55)
[2024-02-03] MEDS: polyethylene glycoL 3350 17 GM POWD.PACK PO ×2 (08:28→17:20)
[2024-02-03] MEDS: lisinopriL 20 MG TABLET 40 MG PO (08:28)
[2024-02-03] MEDS: CALCIUM CITRATE 315 MG/VITAMIN D 6.25 MCG (250 UNITS) TAB 1 TABLET PO (08:28)
[2024-02-03] MEDS: GABAPENTIN 100 MG CAPSULE PO ×2 (08:28→17:20)
[2024-02-03] MEDS: PSYLLIUM POWDER PACKET 1 PACKET PO (08:29)
[2024-02-03] MEDS: MECLIZINE HCL 6.25 MG TABLET PO (08:37)
[2024-02-03] MEDS: HYDROcodone/acetaminophen (*CRX) 10-325 MG TABLET 1 TAB PO ×2 (08:39→17:20)
--- NOTE | 2024-02-03 09:05 | PCOTNOTE ---
Attempted to see pt for OT treatment. Per pt's daughter present in room, pt just received pain medication about 10-15 minutes ago. Pt expresses 10/10 pain in back and dizziness. Therapist will attempt at a later time.
[2024-02-03] MEDS: MORPHINE SULFATE (*CRX) 2 MG/ML INJ IV PUSH ×2 (09:45→22:34)
[2024-02-03] MEDS: LACTULOSE 20 GM/30 ML UDC PO (11:33)
[2024-02-03] MEDS: CYCLOBENZAPRINE HCL 5 MG TABLET PO (12:35)
--- NOTE | 2024-02-03 13:10 | P.PNIM_ITS ---
Progress Note: A&P Assessment and Plan (1) Syncope: Code(s): R55 - Syncope and collapse Status: Acute Assessment and Plan: - head CT: No intracranial hemorrhage, mass, or acute infarct. 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 - obtain recent head CT done in November from [facility], if hygromas are new finding then consider Neurology consultation MRI Lumbar spine: 1. Acute/subacute L1 burst fracture. 2. Acute/subacute S3 fracture. 3. Severe lumbar spondylosis. 4. Lumbar dextroscoliosis CT Thoracic/Lumbar spine CT: 1. Acute appearing L1 compression fracture with minimal anterior vertebral body height loss. No other acute osseous abnormality the thoracic or lumbar spine. 2. Mild S-shaped scoliosis of the lumbar and lower thoracic spine with mild to moderate thoracic and severe lumbar spondylosis. 3. 2 mm nonobstructing left renal stone. - EKG, initial: Sinus rhythm, rate 65. - CXR: No acute cardiopulmonary disease. - Troponin: <0.012 x2, 3rd troponin ordered - BNP, normal for age - obtain orthostatics, recent increase in amlodipine - echo, previous (06/2022): Normal systolic function, estimated EF 65-70%, grade 1 diastolic dysfunction. - no cardiac catheterization or stress test on file - telemetry monitoring (2) Ground-level fall: Code(s): W18.30XA - Fall on same level, unspecified, initial encounter Status: Acute Assessment and Plan: - trauma workup significant for an acute appearing L1 compression fracture. Head CT: No intracranial hemorrhage, mass, or acute infarct. C-spine CT: Severe cervical spondylosis. No acute osseous abnormality. Thoracic/lumbar spine CT: 1. Acute appearing L1 compression fracture with minimal anterior vertebral body height loss. No other acute osseous abnormality the thoracic or lumbar spine. 2. Mild S-shaped scoliosis of the lumbar and lower thoracic spine with mild to moderate thoracic and severe lumbar spondylosis. 3. 2 mm nonobstructing left renal stone. CXR: No acute cardiopulmonary disease. - fall precautions - PT/OT eval for reduced mobility and placement evaluation - care coordination for rehab evaluation (3) Compression fracture of L1 lumbar vertebra: Code(s): S32.010A - Wedge compression fracture of first lumbar vertebra, initial encounter for closed fracture Status: Acute Assessment and Plan: Neurosurgery consulted and ordered TLSO brace. MRI of the lumbar spine shows acute/subacute L1 burst fracture and acute/duval bacute S3 fracture. Family wants to discuss with Neurosurgery and make a decision to pursue vertebroplasty. MRI Lumbar spine: 1. Acute/subacute L1 burst fracture. 2. Acute/subacute S3 fracture. 3. Severe lumbar spondylosis. 4. Lumbar dextroscoliosis CT Thoracic/Lumbar spine CT: 1. Acute appearing L1 compression fracture with minimal anterior vertebral body height loss. No other acute osseous abnormality the thoracic or lumbar spine. 2. Mild S-shaped scoliosis of the lumbar and lower thoracic spine with mild to moderate thoracic and severe lumbar spondylosis. 3. 2 mm nonobstructing left renal stone. (4) Essential (primary) hypertension: Code(s): I10 - Essential (primary) hypertension Status: Chronic Assessment and Plan: - chronic - continue home medications: Amlodipine 10 mg daily, lisinopril 40 mg daily - monitor Plan Diet: Heart healthy GI Prophylaxis: Not currently indicated DVT Prophylaxis: SCDs Lines: Peripheral Code Status: Full code Subjective Date/time seen: 02/03/24 13:10 Interval history: Patient family wants to had for opioid medication. I explained the recent incident of patient needing oxygen during nighttime possibly due to respiratory depression. Patient's family agree increasing the opioid medication. Currently I added Flexeril and lidocaine patch. Patient complains of constipation but passing gas. Yesterday KUB was negative for bowel obstruction and added MiraLax. Patient still had any bowel more so added lactulose. Later will add Senokot scheduled with MiraLax and Metamucil. I spoke with Neurosurgeon and advise to talk with Dr.William Crow who performs this surgery at [place]. Review of Systems Review of Systems: All systems reviewed & are unremarkable except as noted in HPI and below Exam Narrative: right effusion. Left with scant fluid, otherwise normal TM. heart and lungs fine. strong in all extrem. A/Ox4. no nystagmus or facial droop. Const: General: comfortable and no acute distress Other: , female, nontoxic appearance HENMT: Other: Effusion to right tympanic membrane with mild bulge. No erythema or prominent vasculature. Scant fluid to left TM, otherwise normal appearance. Eyes: General: appearance normal, both eyes and all related structures Sclera: sclerae normal Pupils: Equal, round and reactive pupils present EOM: EOMs intact bilaterally Other: No nystagmus. Resp: Effort & Inspection: normal respiratory effort Auscultation: clear to auscultation bilaterally Cardio: Rate: regular rate Rhythm: regular rhythm Other: S1-S2 present without murmur, rub, ectopy GI: Other: Abdomen soft, nondistended. Normoactive bowel sounds in all quadrants. Very mild tenderness in the right lower quadrant. Skin: General skin exam: normal color and no rashes or lesions noted Wounds: no wounds Neuro: Cranial nerves: Yes Equal, round and reactive pupils present Speech: normal speech Motor exam (neuro): 5/5 motor strength present throughout Sensory Exam: normal sensation Other: A&O 4 Extrem: General: normal to inspection Psych: Mental Status: mental status grossly normal Affect: normal affect Other: Good insight and judgment, pleasant Objective Data Vital Signs Vital Signs: Vital Signs - 24 hr 02/02/24 14:00 02/02/24 16:02 02/02/24 20:00 Temperature 96.8 F L Pulse Rate 62 73 Respiratory Rate 16 Blood Pressure 129/51 L Pulse Oximetry 97 Oxygen Delivery Room Air 02/02/24 21:37 02/02/24 20:00 02/03/24 00:00 Temperature 97.7 F Pulse Rate 69 62 77 Respiratory Rate 16 Blood Pressure 166/68 H Pulse Oximetry 96 Oxygen Delivery 02/03/24 04:00 02/03/24 05:47 02/03/24 08:00 Temperature 98.0 F Pulse Rate 69 68 73 Respiratory Rate 20 Blood Pressure 138/57 L Pulse Oximetry 91 Oxygen Delivery 02/03/24 08:25 02/03/24 08:25 Temperature Pulse Rate 70 Respiratory Rate Blood Pressure 126/69 Pulse Oximetry 96 Oxygen Delivery Room Air Intake/Output Intake/Output: Intake & Output 01/31/24 02/01/24 02/02/24 02/03/24 23:59 23:59 23:59 23:59 Intake Total 2680 2970 2038 970 Output Total 5328 502 8165 650 Balance 1680 2070 388 320 Meds/Results Medications: Active Medications Generic Name Dose Route Start Last Admin Trade Name Freq PRN Reason Stop Dose Admin Acetaminophen 1,000 mg 01/28/24 22:32 01/30/24 20:38 Acetaminophen 500 Mg Tablet PO 1,000 mg TID PRN Administration pain 1-3 Hydrocodone Bitart/Acetaminophen 1 tab 01/28/24 23:00 02/01/24 16:31 Hydrocodone/Acetaminophen (*Crx) 5-325 Mg Tablet PO 1 tab Q6H PRN Administration Pain Rated 4-6 Hydrocodone Bitart/Acetaminophen 1 tab 01/30/24 14:27 02/03/24 08:39 Hydrocodone/Acetaminophen (*Crx) 10-325 Mg Tablet PO 1 tab Q6H PRN Administration Pain Rated 7-10 Amlodipine Besylate 10 mg 01/29/24 09:00 02/03/24 08:27 Amlodipine Besylate 10 Mg Tablet PO 10 mg DAILY YULIA Administration Benzocaine 1 lozenge 01/31/24 12:52 Benzocaine/Menthol (*Bkc) 18 Ea Lozenge PO PRN PRN Sore Throat Calcium Citrate 1 tablet 01/29/24 09:00 02/03/24 08:28 Calcium Citrate 315 Mg/Vitamin D 6.25 Mcg (250 Units) Tab PO 1 tablet DAILY YULIA Administration Cyclobenzaprine HCl 5 mg 02/03/24 13:00 02/03/24 12:35 Cyclobenzaprine Hcl 5 Mg Tablet PO 5 mg QAM YULIA Administration Duloxetine HCl 30 mg 01/29/24 09:00 02/03/24 08:27 Duloxetine Hcl 30 Mg Capsule.Dr PO 30 mg DAILY YULIA Administration Fluticasone Propionate 1 spray 01/28/24 22:45 02/03/24 08:28 Fluticasone Propionate 0.05% Na Spr 16 Gm Btl (*Bkc) NASAL 1 spray Q12HR YULIA Administration Gabapentin 200 mg 01/28/24 22:40 02/02/24 20:15 Gabapentin 100 Mg Capsule PO 200 mg HS YULIA Administration Gabapentin 100 mg 01/29/24 09:00 02/03/24 08:28 Gabapentin 100 Mg Capsule PO 100 mg BID YULIA Administration Guaifenesin 600 mg 01/28/24 22:45 02/03/24 08:28 Guaifenesin 12 Hr 600 Mg Tabcr PO 600 mg Q12HR YULIA Administration Lidocaine 1 patch 01/29/24 09:00 02/03/24 08:26 Lidocaine 5% Patch TRANSDERM 1 patch DAILY YULIA Administration Lidocaine 1 patch 02/04/24 09:00 Lidocaine 5% Patch TRANSDERM DAILY YULIA Lisinopril 40 mg 01/29/24 09:00 02/03/24 08:28 Lisinopril 20 Mg Tablet PO 40 mg DAILY YULIA Administration Meclizine HCl 6.25 mg 01/28/24 20:39 02/03/24 08:37 Meclizine Hcl 6.25 Mg Tablet PO 6.25 mg TID PRN Administration Dizziness Miscellaneous Information 0 each 02/03/24 00:01 Lidocaine Patch - 2nd Order For A Patch Was Put In - Do We Need Both Orders? What Is The A XX 03/04/24 00:00 CLARIFY YULIA Morphine Sulfate 2 mg 01/28/24 23:00 02/03/24 09:45 Morphine Sulfate (*Crx) 2 Mg/Ml Inj IV PUSH 2 mg Q4H PRN Administration Pain Rated 7-10 Multivitamins/Minerals 1 tab 01/29/24 09:00 02/03/24 08:28 Multivitamins /C Lutein (Centrum Silver) Tablet *Bkc PO 1 tab DAILY YULIA Administration Ondansetron HCl 4 mg 01/30/24 14:22 01/31/24 10:54 Ondansetron Inj 4 Mg/2 Ml Vial IV PUSH 4 mg Q4H PRN Administration Nausea And Vomiting Polyethylene Glycol 17 gm 02/03/24 17:00 Polyethylene Glycol 3350 17 Gm Powd.Pack PO BID YULIA Psyllium Hydrophilic Mucilloid 1 packet 01/31/24 09:00 02/03/24 08:29 Psyllium Powder Packet PO 1 packet DAILY YULIA Administration Radiology Results: ITS Impressions Cervical Spine CT 01/28/24 10:48 IMPRESSION: 1. Severe cervical spondylosis. No acute osseous abnormality. Head CT 01/28/24 10:48 Impression: No intracranial hemorrhage, mass, or acute infarct. 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 Thoracic/Lumbar Spine CT 01/28/24 10:59 IMPRESSION: 1. Acute appearing L1 compression fracture with minimal anterior vertebral body height loss. No other acute osseous abnormality the thoracic or lumbar spine. 2. Mild S-shaped scoliosis of the lumbar and lower thoracic spine with mild to moderate thoracic and severe lumbar spondylosis. 3. 2 mm nonobstructing left renal stone. Chest X-Ray 01/28/24 13:55 IMPRESSION: 1. No acute cardiopulmonary disease. Lumbar Spine MRI 02/01/24 14:12 IMPRESSION: 1. Acute/subacute L1 burst fracture. 2. Acute/subacute S3 fracture. 3. Severe lumbar spondylosis. 4. Lumbar dextroscoliosis. Abdomen X-Ray 02/02/24 10:40 IMPRESSION: 1. Nonobstructive bowel gas pattern. Labs Labs: Laboratory Results - last 24 hr 02/03/24 07:03 WBC 9.6 RBC 3.57 L Hgb 11.0 L Hct 33.3 L MCV 93.3 MCH 30.8 MCHC 33.0 RDW 12.9 Plt Count 221 MPV 10.2 Sodium 132 L Potassium 4.0 Chloride 98 Carbon Dioxide 29 Anion Gap 5 BUN 17 Creatinine 0.60 L Estim Creat Clear Calc 64 Estimated GFR > 60 Glucose 98 Calcium 8.6 Total Bilirubin 0.8 AST 24 ALT 18 Alkaline Phosphatase 84 Total Protein 6.0 L Albumin 3.3 L Quality VTE Prophylaxis VTE prophylaxis: mechanical ordered Hospitalist [facility] Advance Care Plan I have confirmed that the patient's Advanced Care Plan is present, code status is documented, or surrogate decision maker is listed in patient medical record.: Yes Medication Reconciliation I have utilized all available resources to obtain, update and review the patients current medications (includes all prescriptions, OTC, herbals, cannabis, and nutritional supplements).: Yes
[2024-02-03] MEDS: GABAPENTIN 100 MG CAPSULE 200 MG PO (20:55)
[2024-02-04] VITALS (9 sets, daily range): BP systolic 119–156; BP diastolic 60–65; PULSE 63–77; RESP 18–20; TEMP 36.3–36.8; O2SAT 90–98
[2024-02-04 06:26] LABS: Hematocrit 33.2 % (37.0-47.0); Hemoglobin 11.1 g/dL (12.0-15.0); Mean Corpuscular HGB Conc 33.4 g/dl (32-36); Mean Corpuscular Hemoglobin 31.2 pg (26-34); Mean Corpuscular Volume 93.3 fl (80-100); Platelet Count Result 246 k/mm3 (150-375); Red Blood Count 3.56 M/mm3 (4.2-5.4); Red Cell Distribution Width 13.1 % (11.5-14.5); White Blood Count 10.3 K/mm3 (4.5-10.0)
[2024-02-04 06:43] LABS: Alanine Aminotransferase 25 U/L (6-35); Albumin Level 3.4 g/dL (3.5-5.1); Alkaline Phosphatase 102 U/L (38-126); Anion Gap 2 mmol/L (4-12); Aspartate Amino Transferase 30 U/L (14-36); Bilirubin,Total 0.6 mg/dL (0.2-1.3); Blood Urea Nitrogen 15 mg/dL (7-17); Calcium 8.6 mg/dL (8.4-10.2); Carbon Dioxide 30 mmol/L (22-30); Chloride 99 mmol/L (98-107); Estimated CRCL calculation 64 ml/min; Estimated Glomerular Filt Rate > 60; Glucose 102 mg/dL (65-110); Potassium 3.9 mmol/L (3.4-5.0); Sodium 131 mmol/L (137-145)
[2024-02-04] MEDS: GABAPENTIN 100 MG CAPSULE PO ×2 (08:27→17:02)
[2024-02-04] MEDS: CALCIUM CITRATE 315 MG/VITAMIN D 6.25 MCG (250 UNITS) TAB 1 TABLET PO (08:27)
[2024-02-04] MEDS: amLODIPine BESYLATE 10 MG TABLET PO (08:27)
[2024-02-04] MEDS: guaiFENesin 12 HR 600 MG TABCR PO ×2 (08:27→21:01)
[2024-02-04] MEDS: lisinopriL 20 MG TABLET 40 MG PO (08:27)
[2024-02-04] MEDS: CYCLOBENZAPRINE HCL 5 MG TABLET PO (08:27)
[2024-02-04] MEDS: PSYLLIUM POWDER PACKET 1 PACKET PO (08:27)
[2024-02-04] MEDS: DULoxetine HCL 30 MG CAPSULE.DR PO (08:27)
[2024-02-04] MEDS: MULTIVITAMINS /C LUTEIN (CENTRUM SILVER) TABLET *BKC 1 TAB PO (08:27)
[2024-02-04] MEDS: polyethylene glycoL 3350 17 GM POWD.PACK PO ×2 (08:27→17:02)
[2024-02-04] MEDS: HYDROcodone/acetaminophen (*CRX) 10-325 MG TABLET 1 TAB PO ×3 (08:31→23:02)
[2024-02-04] MEDS: LIDOCAINE 5% PATCH 1 PATCH TRANSDERM (08:34)
[2024-02-04] MEDS: FLUTICASONE PROPIONATE 0.05% NA SPR 16 GM BTL (*BKC) 1 SPRAY NASAL ×2 (08:34→21:02)
--- NOTE | 2024-02-04 13:59 | PM.IMPN ---
Progress Note: A&P Assessment and Plan (1) Syncope: Code(s): R55 - Syncope and collapse Status: Acute Assessment and Plan: - head CT: No intracranial hemorrhage, mass, or acute infarct. 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 - obtain recent head CT done in November from [facility], if hygromas are new finding then consider Neurology consultation MRI Lumbar spine: 1. Acute/subacute L1 burst fracture. 2. Acute/subacute S3 fracture. 3. Severe lumbar spondylosis. 4. Lumbar dextroscoliosis CT Thoracic/Lumbar spine CT: 1. Acute appearing L1 compression fracture with minimal anterior vertebral body height loss. No other acute osseous abnormality the thoracic or lumbar spine. 2. Mild S-shaped scoliosis of the lumbar and lower thoracic spine with mild to moderate thoracic and severe lumbar spondylosis. 3. 2 mm nonobstructing left renal stone. - EKG, initial: Sinus rhythm, rate 65. - CXR: No acute cardiopulmonary disease. - Troponin: <0.012 x2, 3rd troponin ordered - BNP, normal for age - obtain orthostatics, recent increase in amlodipine - echo, previous (06/2022): Normal systolic function, estimated EF 65-70%, grade 1 diastolic dysfunction. - no cardiac catheterization or stress test on file - telemetry monitoring (2) Ground-level fall: Code(s): W18.30XA - Fall on same level, unspecified, initial encounter Status: Acute Assessment and Plan: - trauma workup significant for an acute appearing L1 compression fracture. Head CT: No intracranial hemorrhage, mass, or acute infarct. C-spine CT: Severe cervical spondylosis. No acute osseous abnormality. Thoracic/lumbar spine CT: 1. Acute appearing L1 compression fracture with minimal anterior vertebral body height loss. No other acute osseous abnormality the thoracic or lumbar spine. 2. Mild S-shaped scoliosis of the lumbar and lower thoracic spine with mild to moderate thoracic and severe lumbar spondylosis. 3. 2 mm nonobstructing left renal stone. CXR: No acute cardiopulmonary disease. - fall precautions - PT/OT eval for reduced mobility and placement evaluation - care coordination for rehab evaluation (3) Compression fracture of L1 lumbar vertebra: Code(s): S32.010A - Wedge compression fracture of first lumbar vertebra, initial encounter for closed fracture Status: Acute Assessment and Plan: Neurosurgery consulted and ordered TLSO brace. MRI of the lumbar spine shows acute/subacute L1 burst fracture and acute/subacute S3 fracture. Family wants to discuss with Neurosurgery and make a decision to pursue vertebroplasty. Initiated transfer to [place]. MRI Lumbar spine: 1. Acute/subacute L1 burst fracture. 2. Acute/subacute S3 fracture. 3. Severe lumbar spondylosis. 4. Lumbar dextroscoliosis CT Thoracic/Lumbar spine CT: 1. Acute appearing L1 compression fracture with minimal anterior vertebral body height loss. No other acute osseous abnormality the thoracic or lumbar spine. 2. Mild S-shaped scoliosis of the lumbar and lower thoracic spine with mild to moderate thoracic and severe lumbar spondylosis. 3. 2 mm nonobstructing left renal stone. (4) Essential (primary) hypertension: Code(s): I10 - Essential (primary) hypertension Status: Chronic Assessment and Plan: - chronic - continue home medications: Amlodipine 10 mg daily, lisinopril 40 mg daily - monitor Plan Diet: Heart healthy GI Prophylaxis: Not currently indicated DVT Prophylaxis: SCDs Lines: Peripheral Code Status: Full code Subjective Date/time seen: 02/04/24 13:59 Interval history: Today consulted Dr.William Crow and he reports he can do vertebroplasty only as an outpatient. Family decided to transfer the patient to [place] for vertebroplasty. I will initiate the transfer.Spoke with Trauma Surgeon and requested image to be sent. Review of Systems Review of Systems: All systems reviewed & are unremarkable except as noted in HPI and below Exam Narrative: right effusion. Left with scant fluid, otherwise normal TM. heart and lungs fine. strong in all extrem. A/Ox4. no nystagmus or facial droop. Const: General: comfortable and no acute distress Other: , female, nontoxic appearance HENMT: Other: Effusion to right tympanic membrane with mild bulge. No erythema or prominent vasculature. Scant fluid to left TM, otherwise normal appearance. Eyes: General: appearance normal, both eyes and all related structures Sclera: sclerae normal Pupils: Equal, round and reactive pupils present EOM: EOMs intact bilaterally Other: No nystagmus. Resp: Effort & Inspection: normal respiratory effort Auscultation: clear to auscultation bilaterally Cardio: Rate: regular rate Rhythm: regular rhythm Other: S1-S2 present without murmur, rub, ectopy GI: Other: Abdomen soft, nondistended. Normoactive bowel sounds in all quadrants. Very mild tenderness in the right lower quadrant. Skin: General skin exam: normal color and no rashes or lesions noted Wounds: no wounds Neuro: Cranial nerves: Yes Equal, round and reactive pupils present Speech: normal speech Motor exam (neuro): 5/5 motor strength present throughout Sensory Exam: normal sensation Other: A&O 4 Extrem: General: normal to inspection Psych: Mental Status: mental status grossly normal Affect: normal affect Other: Good insight and judgment, pleasant Objective Data Vital Signs Vital Signs: Vital Signs - 24 hr 02/03/24 14:00 02/03/24 16:00 02/03/24 22:00 Temperature 97.9 F 97.1 F L Pulse Rate 91 71 71 Respiratory Rate 16 14 Blood Pressure 108/73 123/49 L Pulse Oximetry 100 94 Oxygen Delivery 02/03/24 20:00 02/03/24 20:00 02/04/24 00:00 Temperature Pulse Rate 65 66 Respiratory Rate Blood Pressure Pulse Oximetry Oxygen Delivery Room Air 02/04/24 04:00 02/04/24 06:00 02/04/24 08:00 Temperature 97.4 F L Pulse Rate 71 77 Respiratory Rate 20 Blood Pressure 156/61 H Pulse Oximetry 90 Oxygen Delivery Room Air Intake/Output Intake/Output: Intake & Output 02/01/24 02/02/24 02/03/24 02/04/24 23:59 23:59 23:59 23:59 Intake Total 2970 2038 1090 1240 Output Total 900 1650 650 800 Balance 2070 388 440 440 Meds/Results Medications: Active Medications Generic Name Dose Route Start Last Admin Trade Name Freq PRN Reason Stop Dose Admin Acetaminophen 1,000 mg 01/28/24 22:32 01/30/24 20:38 Acetaminophen 500 Mg Tablet PO 1,000 mg TID PRN Administration pain 1-3 Hydrocodone Bitart/Acetaminophen 1 tab 01/28/24 23:00 02/01/24 16:31 Hydrocodone/Acetaminophen (*Crx) 5-325 Mg Tablet PO 1 tab Q6H PRN Administration Pain Rated 4-6 Hydrocodone Bitart/Acetaminophen 1 tab 01/30/24 14:27 02/04/24 08:31 Hydrocodone/Acetaminophen (*Crx) 10-325 Mg Tablet PO 1 tab Q6H PRN Administration Pain Rated 7-10 Amlodipine Besylate 10 mg 01/29/24 09:00 02/04/24 08:27 Amlodipine Besylate 10 Mg Tablet PO 10 mg DAILY YULIA Administration Benzocaine 1 lozenge 01/31/24 12:52 Benzocaine/Menthol (*Bkc) 18 Ea Lozenge PO PRN PRN Sore Throat Calcium Citrate 1 tablet 01/29/24 09:00 02/04/24 08:27 Calcium Citrate 315 Mg/Vitamin D 6.25 Mcg (250 Units) Tab PO 1 tablet DAILY YULIA Administration Cyclobenzaprine HCl 5 mg 02/03/24 13:00 02/04/24 08:27 Cyclobenzaprine Hcl 5 Mg Tablet PO 5 mg QAM YULIA Administration Duloxetine HCl 30 mg 01/29/24 09:00 02/04/24 08:27 Duloxetine Hcl 30 Mg Capsule.Dr PO 30 mg DAILY YULIA Administration Fluticasone Propionate 1 spray 01/28/24 22:45 02/04/24 08:34 Fluticasone Propionate 0.05% Na Spr 16 Gm Btl (*Bkc) NASAL 1 spray Q12HR YULIA Administration Gabapentin 200 mg 01/28/24 22:40 02/03/24 20:55 Gabapentin 100 Mg Capsule PO 200 mg HS YULIA Administration Gabapentin 100 mg 01/29/24 09:00 02/04/24 08:27 Gabapentin 100 Mg Capsule PO 100 mg BID YULIA Administration Guaifenesin 600 mg 01/28/24 22:45 02/04/24 08:27 Guaifenesin 12 Hr 600 Mg Tabcr PO 600 mg Q12HR YULIA Administration Lidocaine 1 patch 01/29/24 09:00 02/04/24 08:34 Lidocaine 5% Patch TRANSDERM 1 patch DAILY YULIA Administration Lisinopril 40 mg 01/29/24 09:00 02/04/24 08:27 Lisinopril 20 Mg Tablet PO 40 mg DAILY YULIA Administration Meclizine HCl 6.25 mg 01/28/24 20:39 02/03/24 08:37 Meclizine Hcl 6.25 Mg Tablet PO 6.25 mg TID PRN Administration Dizziness Miscellaneous Information 0 each 02/03/24 00:01 Lidocaine Patch - 2nd Order For A Patch Was Put In - Do We Need Both Orders? What Is The A XX 03/04/24 00:00 CLARIFY YULIA Morphine Sulfate 2 mg 01/28/24 23:00 02/03/24 22:34 Morphine Sulfate (*Crx) 2 Mg/Ml Inj IV PUSH 2 mg Q4H PRN Administration Pain Rated 7-10 Multivitamins/Minerals 1 tab 01/29/24 09:00 02/04/24 08:27 Multivitamins /C Lutein (Centrum Silver) Tablet *Bkc PO 1 tab DAILY YULIA Administration Ondansetron HCl 4 mg 01/30/24 14:22 01/31/24 10:54 Ondansetron Inj 4 Mg/2 Ml Vial IV PUSH 4 mg Q4H PRN Administration Nausea And Vomiting Polyethylene Glycol 17 gm 02/03/24 17:00 02/04/24 08:27 Polyethylene Glycol 3350 17 Gm Powd.Pack PO 17 gm BID YULIA Administration Psyllium Hydrophilic Mucilloid 1 packet 01/31/24 09:00 02/04/24 08:27 Psyllium Powder Packet PO 1 packet DAILY YULIA Administration Radiology Results: ITS Impressions Cervical Spine CT 01/28/24 10:48 IMPRESSION: 1. Severe cervical spondylosis. No acute osseous abnormality. Head CT 01/28/24 10:48 Impression: No intracranial hemorrhage, mass, or acute infarct. 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 Thoracic/Lumbar Spine CT 01/28/24 10:59 IMPRESSION: 1. Acute appearing L1 compression fracture with minimal anterior vertebral body height loss. No other acute osseous abnormality the thoracic or lumbar spine. 2. Mild S-shaped scoliosis of the lumbar and lower thoracic spine with mild to moderate thoracic and severe lumbar spondylosis. 3. 2 mm nonobstructing left renal stone. Chest X-Ray 01/28/24 13:55 IMPRESSION: 1. No acute cardiopulmonary disease. Lumbar Spine MRI 02/01/24 14:12 IMPRESSION: 1. Acute/subacute L1 burst fracture. 2. Acute/subacute S3 fracture. 3. Severe lumbar spondylosis. 4. Lumbar dextroscoliosis. Abdomen X-Ray 02/02/24 10:40 IMPRESSION: 1. Nonobstructive bowel gas pattern. Labs Labs: Laboratory Results - last 24 hr 02/04/24 06:03 WBC 10.3 H RBC 3.56 L Hgb 11.1 L Hct 33.2 L MCV 93.3 MCH 31.2 MCHC 33.4 RDW 13.1 Plt Count 246 MPV 10.0 Sodium 131 L Potassium 3.9 Chloride 99 Carbon Dioxide 30 Anion Gap 2 L BUN 15 Creatinine 0.60 L Estim Creat Clear Calc 64 Estimated GFR > 60 Glucose 102 Calcium 8.6 Total Bilirubin 0.6 AST 30 ALT 25 Alkaline Phosphatase 102 Total Protein 6.0 L Albumin 3.4 L Quality VTE Prophylaxis VTE prophylaxis: mechanical ordered
[2024-02-04] MEDS: GABAPENTIN 100 MG CAPSULE 200 MG PO (21:01)
[2024-02-04] MEDS: MORPHINE SULFATE (*CRX) 2 MG/ML INJ IV PUSH (21:01)
[2024-02-05] VITALS (8 sets, daily range): BP systolic 116–141; BP diastolic 46–58; PULSE 61–67; RESP 18; TEMP 36.3–36.6; O2SAT 92–98
--- NOTE | 2024-02-05 | ECHO_ITS ---
Patient Info Name: Laina Kirk Age: 83 years : 1940 Gender: Female Ht: 67 in Wt: 182 lbs BSA: 2.00 m2 HR: 67 bpm BP: 116 / 46 mmHg Heart Rhythm: Sinus Rhythm Technical Quality: Fair Exam Date: 02/05/2024 11:24 AM Exam Location: Echo Lab Patient Status: Inpatient Admit Date: 01/29/2024 Staff Ordering Physician: Judith Helton MD Apron Man: Ankush Flores RDCS Attending Provider: Carlos Alberto Huerta MD Exam Type: CA echo doppler color flow Study Info Indications - SYNCOPE Complete two-dimensional, color flow and Doppler transthoracic echocardiogram is performed. Summary 1. Left ventricular chamber dimension is normal. 2. Left ventricular systolic function is normal, estimated at 60-65%. 3. There is mildly increased left ventricular wall thickness. 4. The left ventricular diastolic function is grade I diastolic dysfunction. 5. Right ventricular systolic function is normal. 6. Right atrial chamber dimension is mildly enlarged. 7. There is mild tricuspid valve regurgitation. Left Ventricle Left ventricular chamber dimension is normal. Left ventricular systolic function is normal, estimated at 60-65%. There is mildly increased left ventricular wall thickness. The left ventricular diastolic function is grade I diastolic dysfunction. Right Ventricle Right ventricular chamber dimension is normal. Right ventricular systolic function is normal. Left Atria Left atrial chamber dimension is normal. Right Atria Right atrial chamber dimension is mildly enlarged. Atrial Septum Intact interatrial septum visualized by color flow imaging. Aortic Valve The aortic valve is not well visualized. There is no aortic valve stenosis. There is no aortic valve regurgitation. Pulmonic Valve The pulmonic valve is not well visualized. Mitral Valve There is trace mitral valve regurgitation. Tricuspid Valve There is mild tricuspid valve regurgitation. Pericardium/Pleural There is no pericardial effusion. Inferior Vena Cava Normal inferior vena cava with >50% collapse upon inspiration consistent with normal right atrial pressure, 3 mmHg. Aorta The aortic root size at the sinus of Valsalva is normal. Left Ventricular Outflow Tract Name Value Normal LVOT 2D LVOT Diameter 2.0 cm LVOT Doppler LVOT Peak Gradient 5 mmHg LVOT Mean Gradient 3 mmHg LVOT VTI 30 cm LVOT VTI/AV VTI Ratio 0.9 LVOT Stroke Volume 93 ml LVOT CO 5.5 l/min LVOT CI 2.8 l/min/m2 Pulmonic Valve Name Value Normal RVOT Doppler RVOT Peak Gradient 3 mmHg PV Doppler PV Peak Gradient 4 mmHg Mitral Valve Name Value Normal MV Doppler MV Decel [place] 531 cm/s2 MV PHT 51 ms MV Area (PHT) 4.3 cm2 4.0-5.0 MV Diastolic Function MV E Peak Velocity 93 cm/s MV A Peak Velocity 104 cm/s MV E/A 0.9 MV Decel Time 176 ms MV Annular TDI MV E/e' (Septal) 9.6 <=8.0 MV E/e' (Lateral) 9.0 <=8.0 MV E/e' (Average) 9.3 Tricuspid Valve Name Value Normal TV Regurgitation Doppler TR Peak Velocity 303 cm/s TR Peak Gradient 37 mmHg Estimated PAP/RSVP RA Pressure 3 mmHg <=5 PA Systolic Pressure 40 mmHg <36 RV Systolic Pressure 40 mmHg <36 Aorta Name Value Normal Ascending Aorta Ao Root Diameter (MM) 2.9 cm Ao Root Diam Index (MM) 1.5 cm/m2 Aortic Valve Name Value Normal AV Doppler AV Peak Velocity 131 cm/s AV Peak Gradient 7 mmHg AV Mean Gradient 4 mmHg AV VTI 32 cm AV Area (Cont Eq VTI) 2.9 cm2 >=3.0 AV Area (Cont Eq Kurt) 2.8 cm2 AV Regurgitation 2D LVOT Area 3.1 cm2 Ventricles Name Value Normal LV Dimensions 2D/MM IVS Diastolic Thickness (2D) 1.0 cm 0.6-1.0 LVID Diastole (2D) 4.5 cm 3.8-5.2 LVIW Diastolic Thickness (2D) 0.8 cm 0.6-0.9 LVID Systole (2D) 2.6 cm 2.2-3.5 LVOT Diameter 2.0 cm LV Mass (2D Cubed) 133.71 g 67.00-162.00 LV Mass Index (2D Cubed) 67 g/m2 43-95 Relative Wall Thickness (2D) 0.37 LV Fractional Shortening/Ejection Fraction 2D/MM LV Fractional Shortening (2D) 42 % 27-45 LV EF (2D Teichjoshz) 73 % 54-74 LV Diastolic Volume (4C MOD) 75 ml LV EF (4C MOD) 67 % LV Diastolic Volume (2C MOD) 75 ml LV EF (2C MOD) 40 % LV Diastolic Volume (BP MOD) 75 ml 46-106 LV Diastolic Volume Index (BP MOD) 37 ml/m2 29-61 LV Systolic Volume (BP MOD) 33 ml 14-42 LV Systolic Volume Index (BP MOD) 17 ml/m2 8-24 LV EF (BP MOD) 55 % 54-74 LV Diastolic Length (4C) 7.7 cm LV Systolic Length (4C) 6.3 cm LV Stroke Volume (4C MOD) 50 ml Atria Name Value Normal LA Dimensions LA Dimension (MM) 4.1 cm 2.7-3.8 LA Volume (4C A-L) 53 ml LA Volume (BP A-L) 58 ml RA Dimensions RA Area (4C) 19.6 cm2 <=18.0 Report Signatures
[2024-02-05] MEDS: HYDROcodone/acetaminophen (*CRX) 10-325 MG TABLET 1 TAB PO ×3 (05:10→23:25)
[2024-02-05 07:29] LABS: Hematocrit 33.5 % (37.0-47.0); Hemoglobin 10.7 g/dL (12.0-15.0); Mean Corpuscular HGB Conc 31.9 g/dl (32-36); Mean Corpuscular Hemoglobin 30.5 pg (26-34); Mean Corpuscular Volume 95.4 fl (80-100); Mean Platelet Volume 9.7 fl (7.4-10.4); Platelet Count Result 274 k/mm3 (150-375); Red Blood Count 3.51 M/mm3 (4.2-5.4); Red Cell Distribution Width 13.1 % (11.5-14.5); White Blood Count 8.3 K/mm3 (4.5-10.0)
[2024-02-05 07:47] LABS: Alanine Aminotransferase 25 U/L (6-35); Albumin Level 3.2 g/dL (3.5-5.1); Alkaline Phosphatase 90 U/L (38-126); Anion Gap -1 mmol/L (4-12); Aspartate Amino Transferase 30 U/L (14-36); Bilirubin,Total 0.4 mg/dL (0.2-1.3); Blood Urea Nitrogen 16 mg/dL (7-17); Calcium 8.9 mg/dL (8.4-10.2); Carbon Dioxide 36 mmol/L (22-30); Chloride 102 mmol/L (98-107); Estimated CRCL calculation 56 ml/min; Estimated Glomerular Filt Rate > 60; Glucose 95 mg/dL (65-110); Potassium 4.9 mmol/L (3.4-5.0); Sodium 137 mmol/L (137-145)
[2024-02-05] MEDS: CALCIUM CITRATE 315 MG/VITAMIN D 6.25 MCG (250 UNITS) TAB 1 TABLET PO (09:41)
[2024-02-05] MEDS: HYDROcodone/acetaminophen (*CRX) 5-325 MG TABLET 1 TAB PO (09:41)
[2024-02-05] MEDS: lisinopriL 20 MG TABLET 40 MG PO (09:41)
[2024-02-05] MEDS: CYCLOBENZAPRINE HCL 5 MG TABLET PO (09:41)
[2024-02-05] MEDS: MULTIVITAMINS /C LUTEIN (CENTRUM SILVER) TABLET *BKC 1 TAB PO (09:42)
[2024-02-05] MEDS: amLODIPine BESYLATE 10 MG TABLET PO (09:42)
[2024-02-05] MEDS: polyethylene glycoL 3350 17 GM POWD.PACK PO ×2 (09:42→16:38)
[2024-02-05] MEDS: PSYLLIUM POWDER PACKET 1 PACKET PO (09:42)
[2024-02-05] MEDS: FLUTICASONE PROPIONATE 0.05% NA SPR 16 GM BTL (*BKC) 1 SPRAY NASAL ×2 (09:42→21:00)
[2024-02-05] MEDS: GABAPENTIN 100 MG CAPSULE PO ×2 (09:42→16:38)
[2024-02-05] MEDS: DULoxetine HCL 30 MG CAPSULE.DR PO (09:42)
[2024-02-05] MEDS: guaiFENesin 12 HR 600 MG TABCR PO ×2 (09:42→20:48)
[2024-02-05] MEDS: LIDOCAINE 5% PATCH 1 PATCH TRANSDERM (09:43)
--- NOTE | 2024-02-05 10:05 | PCNWS ---
Weekly nutritional screen. Patient is tolerating current regular diet with adequate intake 50-75% most meals, Ensure compact BID in place. No weight loss reported. No further nutritional recommendations at this time.
--- NOTE | 2024-02-05 14:45 | PCPTNOTE ---
Attempted to see patient for PT, however patient refused due to pain. RN aware.
--- NOTE | 2024-02-05 16:28 | P.PNIM_ITS ---
Progress Note: A&P Assessment and Plan (1) Syncope: Code(s): R55 - Syncope and collapse Status: Acute Assessment and Plan: - head CT: No intracranial hemorrhage, mass, or acute infarct. 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 - obtain recent head CT done in November from [facility], if hygromas are new finding then consider Neurology consultation MRI Lumbar spine: 1. Acute/subacute L1 burst fracture. 2. Acute/subacute S3 fracture. 3. Severe lumbar spondylosis. 4. Lumbar dextroscoliosis CT Thoracic/Lumbar spine CT: 1. Acute appearing L1 compression fracture with minimal anterior vertebral body height loss. No other acute osseous abnormality the thoracic or lumbar spine. 2. Mild S-shaped scoliosis of the lumbar and lower thoracic spine with mild to moderate thoracic and severe lumbar spondylosis. 3. 2 mm nonobstructing left renal stone. - EKG, initial: Sinus rhythm, rate 65. - CXR: No acute cardiopulmonary disease. - Troponin: <0.012 x2, 3rd troponin ordered - BNP, normal for age - obtain orthostatics, recent increase in amlodipine - echo estimated EF 65-70%, grade 1 diastolic dysfunction. - no cardiac catheterization or stress test on file - telemetry monitoring (2) Ground-level fall: Code(s): W18.30XA - Fall on same level, unspecified, initial encounter Status: Acute Assessment and Plan: - trauma workup significant for an acute appearing L1 compression fracture. Head CT: No intracranial hemorrhage, mass, or acute infarct. C-spine CT: Severe cervical spondylosis. No acute osseous abnormality. Thoracic/lumbar spine CT: 1. Acute appearing L1 compression fracture with minimal anterior vertebral body height loss. No other acute osseous abnormality the thoracic or lumbar spine. 2. Mild S-shaped scoliosis of the lumbar and lower thoracic spine with mild to moderate thoracic and severe lumbar spondylosis. 3. 2 mm nonobstructing left renal stone. CXR: No acute cardiopulmonary disease. - fall precautions - PT/OT eval for reduced mobility and placement evaluation - care coordination for rehab evaluation (3) Compression fracture of L1 lumbar vertebra: Code(s): S32.010A - Wedge compression fracture of first lumbar vertebra, initial encounter for closed fracture Status: Acute Assessment and Plan: Neurosurgery consulted and ordered TLSO brace. MRI of the lumbar spine shows acute/subacute L1 burst fracture and acute/subacute S3 fracture. Family wants to discuss with Neurosurgery and make a decision to pursue vertebroplasty. Initiated transfer to [place]. MRI Lumbar spine: 1. Acute/subacute L1 burst fracture. 2. Acute/subacute S3 fracture. 3. Severe lumbar spondylosis. 4. Lumbar dextroscoliosis CT Thoracic/Lumbar spine CT: 1. Acute appearing L1 compression fracture with minimal anterior vertebral body height loss. No other acute osseous abnormality the thoracic or lumbar spine. 2. Mild S-shaped scoliosis of the lumbar and lower thoracic spine with mild to moderate thoracic and severe lumbar spondylosis. 3. 2 mm nonobstructing left renal stone. awaiting transfer to [facility] for vertebroplasty (4) Essential (primary) hypertension: Code(s): I10 - Essential (primary) hypertension Status: Chronic Assessment and Plan: - chronic - continue home medications: Amlodipine 10 mg daily, lisinopril 40 mg daily - monitor Plan Diet: Heart healthy GI Prophylaxis: Not currently indicated DVT Prophylaxis: Sq lovenox Lines: Peripheral Code Status: Full code Subjective Date/time seen: 02/05/24 16:28 Interval history: Today consulted Dr.William Crow and he reports he can do vertebroplasty only as an outpatient. Family decided to transfer the patient to [place] for vertebroplasty. patient awaiting transfer to [facility] for vertebroplasty Review of Systems Review of Systems: All systems reviewed & are unremarkable except as noted in HPI and below Exam Narrative: right effusion. Left with scant fluid, otherwise normal TM. heart and lungs fine. strong in all extrem. A/Ox4. no nystagmus or facial droop. Const: General: comfortable and no acute distress Other: , female, nontoxic appearance HENMT: Other: Effusion to right tympanic membrane with mild bulge. No erythema or prominent vasculature. Scant fluid to left TM, otherwise normal appearance. Eyes: General: appearance normal, both eyes and all related structures Sclera: sclerae normal Pupils: Equal, round and reactive pupils present EOM: EOMs intact bilaterally Other: No nystagmus. Resp: Effort & Inspection: normal respiratory effort Auscultation: clear to auscultation bilaterally Cardio: Rate: regular rate Rhythm: regular rhythm Other: S1-S2 present without murmur, rub, ectopy GI: Other: Abdomen soft, nondistended. Normoactive bowel sounds in all quadrants. Very mild tenderness in the right lower quadrant. Skin: General skin exam: normal color and no rashes or lesions noted Wounds: no wounds Neuro: Cranial nerves: Yes Equal, round and reactive pupils present Speech: normal speech Motor exam (neuro): 5/5 motor strength present throughout Sensory Exam: normal sensation Other: A&O 4 Extrem: General: normal to inspection Psych: Mental Status: mental status grossly normal Affect: normal affect Other: Good insight and judgment, pleasant Objective Data Vital Signs Vital Signs: Vital Signs - 24 hr 02/04/24 20:00 02/04/24 20:00 02/04/24 21:58 Temperature 98.2 F Pulse Rate 74 63 Respiratory Rate 18 Blood Pressure 142/60 H Pulse Oximetry 95 Oxygen Delivery Room Air 02/05/24 00:00 02/05/24 06:00 02/05/24 08:00 Temperature 97.4 F L Pulse Rate 67 67 Respiratory Rate 18 Blood Pressure 116/46 L Pulse Oximetry 92 Oxygen Delivery Room Air 02/05/24 14:00 Temperature 97.9 F Pulse Rate 61 Respiratory Rate 18 Blood Pressure 118/52 L Pulse Oximetry 98 Oxygen Delivery Intake/Output Intake/Output: Intake & Output 02/02/24 02/03/24 02/04/24 02/05/24 23:59 23:59 23:59 23:59 Intake Total 2038 1090 1980 598 Output Total 1650 650 800 Balance 869 483 0994 598 Meds/Results Medications: Active Medications Generic Name Dose Route Start Last Admin Trade Name Freq PRN Reason Stop Dose Admin Acetaminophen 1,000 mg 01/28/24 22:32 01/30/24 20:38 Acetaminophen 500 Mg Tablet PO 1,000 mg TID PRN Administration pain 1-3 Hydrocodone Bitart/Acetaminophen 1 tab 01/28/24 23:00 02/05/24 09:41 Hydrocodone/Acetaminophen (*Crx) 5-325 Mg Tablet PO 1 tab Q6H PRN Administration Pain Rated 4-6 Hydrocodone Bitart/Acetaminophen 1 tab 01/30/24 14:27 02/05/24 13:41 Hydrocodone/Acetaminophen (*Crx) 10-325 Mg Tablet PO 1 tab Q6H PRN Administration Pain Rated 7-10 Amlodipine Besylate 10 mg 01/29/24 09:00 02/05/24 09:42 Amlodipine Besylate 10 Mg Tablet PO 10 mg DAILY YULIA Administration Benzocaine 1 lozenge 01/31/24 12:52 Benzocaine/Menthol (*Bkc) 18 Ea Lozenge PO PRN PRN Sore Throat Calcium Citrate 1 tablet 01/29/24 09:00 02/05/24 09:41 Calcium Citrate 315 Mg/Vitamin D 6.25 Mcg (250 Units) Tab PO 1 tablet DAILY YULIA Administration Cyclobenzaprine HCl 5 mg 02/03/24 13:00 02/05/24 09:41 Cyclobenzaprine Hcl 5 Mg Tablet PO 5 mg QAM YULIA Administration Duloxetine HCl 30 mg 01/29/24 09:00 02/05/24 09:42 Duloxetine Hcl 30 Mg Capsule.Dr PO 30 mg DAILY YULIA Administration Fluticasone Propionate 1 spray 01/28/24 22:45 02/05/24 09:42 Fluticasone Propionate 0.05% Na Spr 16 Gm Btl (*Bkc) NASAL 1 spray Q12HR YULIA Administration Gabapentin 200 mg 01/28/24 22:40 02/04/24 21:01 Gabapentin 100 Mg Capsule PO 200 mg HS YULIA Administration Gabapentin 100 mg 01/29/24 09:00 02/05/24 09:42 Gabapentin 100 Mg Capsule PO 100 mg BID YULIA Administration Guaifenesin 600 mg 01/28/24 22:45 02/05/24 09:42 Guaifenesin 12 Hr 600 Mg Tabcr PO 600 mg Q12HR YULIA Administration Lidocaine 1 patch 01/29/24 09:00 02/05/24 09:43 Lidocaine 5% Patch TRANSDERM 1 patch DAILY YULIA Administration Lisinopril 40 mg 01/29/24 09:00 02/05/24 09:41 Lisinopril 20 Mg Tablet PO 40 mg DAILY YULIA Administration Meclizine HCl 6.25 mg 01/28/24 20:39 02/03/24 08:37 Meclizine Hcl 6.25 Mg Tablet PO 6.25 mg TID PRN Administration Dizziness Morphine Sulfate 2 mg 01/28/24 23:00 02/04/24 21:01 Morphine Sulfate (*Crx) 2 Mg/Ml Inj IV PUSH 2 mg Q4H PRN Administration Pain Rated 7-10 Multivitamins/Minerals 1 tab 01/29/24 09:00 02/05/24 09:42 Multivitamins /C Lutein (Centrum Silver) Tablet *Bkc PO 1 tab DAILY YULIA Administration Ondansetron HCl 4 mg 01/30/24 14:22 01/31/24 10:54 Ondansetron Inj 4 Mg/2 Ml Vial IV PUSH 4 mg Q4H PRN Administration Nausea And Vomiting Perflutren Lipid Microsphere 0 ml 02/05/24 09:40 Perflutren Lipid Microspheres 1.5 Ml Vial Diluted To 10 Ml Total Volume IV PUSH 02/08/24 09:40 ONCE PRN adequate visualization Protocol Polyethylene Glycol 17 gm 02/03/24 17:00 02/05/24 09:42 Polyethylene Glycol 3350 17 Gm Powd.Pack PO 17 gm BID YULIA Administration Psyllium Hydrophilic Mucilloid 1 packet 01/31/24 09:00 02/05/24 09:42 Psyllium Powder Packet PO 1 packet DAILY YULIA Administration Radiology Results: ITS Impressions Cervical Spine CT 01/28/24 10:48 IMPRESSION: 1. Severe cervical spondylosis. No acute osseous abnormality. Head CT 01/28/24 10:48 Impression: No intracranial hemorrhage, mass, or acute infarct. 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 Thoracic/Lumbar Spine CT 01/28/24 10:59 IMPRESSION: 1. Acute appearing L1 compression fracture with minimal anterior vertebral body height loss. No other acute osseous abnormality the thoracic or lumbar spine. 2. Mild S-shaped scoliosis of the lumbar and lower thoracic spine with mild to moderate thoracic and severe lumbar spondylosis. 3. 2 mm nonobstructing left renal stone. Chest X-Ray 01/28/24 13:55 IMPRESSION: 1. No acute cardiopulmonary disease. Lumbar Spine MRI 02/01/24 14:12 IMPRESSION: 1. Acute/subacute L1 burst fracture. 2. Acute/subacute S3 fracture. 3. Severe lumbar spondylosis. 4. Lumbar dextroscoliosis. Abdomen X-Ray 02/02/24 10:40 IMPRESSION: 1. Nonobstructive bowel gas pattern. Labs Labs: Laboratory Results - last 24 hr 02/05/24 06:58 WBC 8.3 RBC 3.51 L Hgb 10.7 L Hct 33.5 L MCV 95.4 MCH 30.5 MCHC 31.9 L RDW 13.1 Plt Count 274 MPV 9.7 Sodium 137 Potassium 4.9 Chloride 102 Carbon Dioxide 36 H Anion Gap -1 L BUN 16 Creatinine 0.70 Estim Creat Clear Calc 56 Estimated GFR > 60 Glucose 95 Calcium 8.9 Total Bilirubin 0.4 AST 30 ALT 25 Alkaline Phosphatase 90 Total Protein 6.0 L Albumin 3.2 L Quality VTE Prophylaxis VTE prophylaxis: mechanical ordered
[2024-02-05] MEDS: GABAPENTIN 100 MG CAPSULE 200 MG PO (20:48)
[2024-02-06] VITALS: PULSE 79
[2024-02-06 04:00] VITALS: PULSE 64
[2024-02-06 05:57] VITALS: BP 167/70; PULSE 68; RESP 18; TEMP 36.6; O2SAT 94
[2024-02-06 06:55] LABS: Basophils Absolute Auto 0.1 K/mm3 (0.0-0.1); Basophils Percent Auto 0.8 % (0.2-1.2); Eosinophils Absolute Auto 0.3 K/mm3 (0-0.3); Eosinophils Percent Auto 3.2 % (0-4.4); Hematocrit 33.9 % (37.0-47.0); Hemoglobin 10.7 g/dL (12.0-15.0); Immature Granulocyte Absolute 0.06 K/mm3 (0.00-0.031); Immature Granulocyte Percent A 0.7 % (0-0.5); Lymphocytes Absolute Auto 2.61 K/mm3 (0.9-3.2); Lymphocytes Percent Auto 29.2 % (18.3-44.2); Mean Corpuscular HGB Conc 31.6 g/dl (32-36); Mean Corpuscular Hemoglobin 30.1 pg (26-34); Mean Corpuscular Volume 95.2 fl (80-100); Mean Platelet Volume 9.6 fl (7.4-10.4); Monocytes Percent Auto 11.2 % (2.6-8.5); Neutrophils Absolute Auto 4.9 K/mm3 (1.3-6.7); Neutrophils Percent Auto 54.9 % (45.5-73.1); Platelet Count Result 306 k/mm3 (150-375); Red Blood Count 3.56 M/mm3 (4.2-5.4); Red Cell Distribution Width 13.1 % (11.5-14.5); White Blood Count 8.9 K/mm3 (4.5-10.0)
[2024-02-06 07:13] LABS: Alanine Aminotransferase 23 U/L (6-35); Albumin Level 3.2 g/dL (3.5-5.1); Alkaline Phosphatase 94 U/L (38-126); Anion Gap 1 mmol/L (4-12); Aspartate Amino Transferase 26 U/L (14-36); Bilirubin,Total 0.4 mg/dL (0.2-1.3); Blood Urea Nitrogen 14 mg/dL (7-17); Calcium 8.8 mg/dL (8.4-10.2); Carbon Dioxide 32 mmol/L (22-30); Chloride 104 mmol/L (98-107); Estimated CRCL calculation 64 ml/min; Estimated Glomerular Filt Rate > 60; Glucose 92 mg/dL (65-110); Magnesium 2.2 mg/dL (1.6-2.3); Potassium 4.2 mmol/L (3.4-5.0); Sodium 137 mmol/L (137-145)
[2024-02-06] MEDS: DULoxetine HCL 30 MG CAPSULE.DR PO (08:15)
[2024-02-06] MEDS: ENOXAPARIN 40 MG/0.4 ML SYRINGE SUB-Q (08:15)
[2024-02-06] MEDS: LIDOCAINE 5% PATCH 1 PATCH TRANSDERM (08:16)
[2024-02-06] MEDS: MULTIVITAMINS /C LUTEIN (CENTRUM SILVER) TABLET *BKC 1 TAB PO (08:17)
[2024-02-06] MEDS: GABAPENTIN 100 MG CAPSULE PO (08:17)
[2024-02-06] MEDS: HYDROcodone/acetaminophen (*CRX) 10-325 MG TABLET 1 TAB PO (08:17)
[2024-02-06] MEDS: lisinopriL 20 MG TABLET 40 MG PO (08:18)
[2024-02-06] MEDS: CYCLOBENZAPRINE HCL 5 MG TABLET PO (08:18)
[2024-02-06] MEDS: amLODIPine BESYLATE 10 MG TABLET PO (08:18)
[2024-02-06] MEDS: CALCIUM CITRATE 315 MG/VITAMIN D 6.25 MCG (250 UNITS) TAB 1 TABLET PO (08:18)
[2024-02-06] MEDS: guaiFENesin 12 HR 600 MG TABCR PO (08:18)
[2024-02-06] MEDS: FLUTICASONE PROPIONATE 0.05% NA SPR 16 GM BTL (*BKC) 1 SPRAY NASAL (08:29)
[2024-02-06] MEDS: MORPHINE SULFATE (*CRX) 2 MG/ML INJ IV PUSH (09:05)
--- NOTE | 2024-02-06 09:13 | PC.NURSE ---
[facility] here to transport to [facility]. Belongings sent with family.
--- NOTE | 2024-02-06 14:49 | PM.TDS ---
Transfer Discharge Sum: Prov Provider Date of admission: 01/29/24 11:29 Primary care physician: Willa Anaya MD Admitting clinician: Carlos Alberto Huerta MD Consults: 01/28/24 Care Coordination Consult Routine Reason for Consult:: Acute Rehab Consult 01/29/24 Consult to Physician Routine Comment: Left VM at office 01/28 1009 ([facility] [place]) Consulting Provider: Mike Huntley Reason for consultation: L1 Compression Fracture Has provider been notified: Yes DS: Admitting Diagnosis Discharge Date 02/06/24 Admitting Diagnosis Fall, back pain DS: Discharge Diagnosis Discharge Diagnosis (1) Compression fracture of L1 lumbar vertebra: Code(s): S32.010A - Wedge compression fracture of first lumbar vertebra, initial encounter for closed fracture Status: Acute (2) Syncope: Code(s): R55 - Syncope and collapse Status: Acute Transfer Discharge Sum: Med Medications Active and Home Medications: Home Medications calcium 250 mg (phosphate)-vit D3 12.5 mcg (500 unit) chewable tablet (Citracal-D3 Gummies) 1 tablet PO DAILY 03/04/19 [History Confirmed 01/28/24] psyllium husk 0.4 gram capsule (Metamucil) 0.4 g PO DAILY PRN Constipation 03/08/21 [History Confirmed 01/28/24] lisinopril 40 mg tablet 40 mg PO DAILY #90 tabs 12/24/23 [Rx Confirmed 01/28/24] acetaminophen 500 mg tablet (Tylenol Extra Strength) 1,000 mg PO TID PRN pain 12/27/23 [History Confirmed 01/28/24] duloxetine 30 mg capsule,delayed release 30 mg PO DAILY #90 caps 12/27/23 [Rx Confirmed 01/28/24] lidocaine 5 % topical patch (DermacinRx Lidocan) 1 patch topical DAILY #30 ea 12/27/23 [Rx Confirmed 01/28/24] tjafqcaf-krk-tekt 4 mg-folic acid 200 mcg-vit K 25 mcg-lutein tablet (Centrum Minis Women 50 Plus) 1 tablet PO DAILY 12/27/23 [History Confirmed 01/28/24] amlodipine 10 mg tablet 10 mg PO DAILY #90 tabs 01/11/24 [Rx Confirmed 01/28/24] biotin 10,000 mcg chewable tablet (Hair, Skin and Nails (biotin)) 10,000 mcg PO DAILY 01/28/24 [History Confirmed 01/28/24] gabapentin 100 mg capsule 100 mg PO BID 01/28/24 [History Confirmed 01/28/24] gabapentin 100 mg tablet 200 mg PO HS 01/28/24 [History Confirmed 01/28/24] Transfer Discharge Sum: Hosp Hospital Course Hospital course: 83 y/o F presents here with back pain post-fall with PMH of chronic low back pain, degenerative disc disease, hypertension, GERD, osteopenia, osteoarthritis, and vitamin-D deficiency. The patient presents here from home for further evaluation of back pain after she sustained a ground level fall yesterday. She reports that she was walking up 2 steps last night around 18:00. She reports she had only stepped up one step suddenly had an episode of loss of consciousness. She had no precipitating symptoms. She reports that she was unable to grab the hand railing next to her and has no recollection of fall. Fall was onto the concrete floor. Suspected head strike, now has bump to the top left of her head and mild tenderness to same region. Patient woke up on the floor with pain in her lower back. Today she has developed some stiffness in her neck without decreased or painful ROM. Patient also had 2 episodes of dizziness. First was while she was being helped into bed for the night and the second occurred while she was laying in the stretcher in the ER. She described it as the room spinning, lasted for approximately 1 minute and resolved without intervention. Denies chest pain, shortness, diaphoresis, nausea/vomiting. Denies focal weakness, focal numbness, changes in speech, trouble swallowing, changes in gait. Patient does report she has had sinus drainage. Recent increase in amlodipine from 5 mg daily to 10 mg daily approximately 2 weeks ago. No other medication changes. Initial VS at presentation: 97.6, HR 62, R 18, 139/50, and 98% on RA. ED workup showed: No leukocytosis, no anemia, normal coags, sodium 136, creatinine 0.6 and normal GFR, initial troponin negative, and UA was turbid with moderate amorphous sediment otherwise nor abnormalities. Initial EKG showed sinus rhythm with a rate of 65. C-spine CT showed severe cervical spondylosis without acute osseous abnormality. Head CT showed no intracranial hemorrhage, mass, or acute infarcts. 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 CT thoracic/lumbar spine showed acute appearing L1 compression fracture with minimal anterior vertebral body height loss, no other acute osseous abnormality in the thoracic or lumbar spine, mild S shaped scoliosis, and a 2 mm nonobstructing left renal stone. CXR showed no acute cardiopulmonary disease. MRI showed L1 burst fracture with Acute S3 fracture, was evaluated by neurosurgery and transfer was recommended for vertebroplasty. Patient was transferred to [facility] for Vertebroplasty. ECHO was done to evaluated syncope however EF 60-65% with grade I diastolic dysfunction. Patient mani continue with follow up at [facility]. Patient was transferred this Morning to [facility] for Vertebroplasty Time Spent with Patient Time attestation: Total time spent providing and/or coordinating transfer services: DS: Data Data Completed and Pending Labs on day of discharge: Labs from last 24 hours 02/06/24 06:27 WBC 8.9 RBC 3.56 L Hgb 10.7 L Hct 33.9 L MCV 95.2 MCH 30.1 MCHC 31.6 L RDW 13.1 Plt Count 306 MPV 9.6 Immature Gran % (Auto) 0.7 H Neut % (Auto) 54.9 Lymph % (Auto) 29.2 [place] % (Auto) 11.2 H Eos % (Auto) 3.2 Baso % (Auto) 0.8 Lymph # (Auto) 2.61 [place] # (Auto) 1.0 H Eos # (Auto) 0.3 Baso # (Auto) 0.1 Abs Immat Gran (auto) 0.06 H Absolute Neuts (auto) 4.9 Absolute Nucleated RBC 0.000 Nucleated RBC % 0.0 Sodium 137 Potassium 4.2 Chloride 104 Carbon Dioxide 32 H Anion Gap 1 L BUN 14 Creatinine 0.60 L Estim Creat Clear Calc 64 Estimated GFR > 60 Glucose 92 Calcium 8.8 Magnesium 2.2 Total Bilirubin 0.4 AST 26 ALT 23 Alkaline Phosphatase 94 Total Protein 6.0 L Albumin 3.2 L Additional Comments Additional comments: Condition on transfer was stable
== END 2024-02-06 09:15 | disposition short-term general hospital (02) | DRG 552 ==
LOC: ANHED 14:41 → ANH3MEDSUR 17:53
PROVIDERS: General Practice; Student in an Organized Health Care Education/Training Program; Admitting Provider Internal Medicine; Emergency Provider Emergency Medicine; PCP Family Medicine; Visit Provider Internal Medicine
DX: S32.011A Stable burst fracture of first lumbar vertebra, initial encounter for closed fracture (principal); S32.10XA Unspecified fracture of sacrum, initial encounter for closed fracture; W18.30XA Fall on same level, unspecified, initial encounter; R55 Syncope and collapse; K21.9 Gastro-esophageal reflux disease without esophagitis; M85.80 Other specified disorders of bone density and structure, unspecified site; M19.90 Unspecified osteoarthritis, unspecified site; E55.9 Vitamin D deficiency, unspecified; M51.369 Other intervertebral disc degeneration, lumbar region without mention of lumbar back pain or lower extremity pain; I10 Essential (primary) hypertension; Z96.652 Presence of left artificial knee joint; Z90.710 Acquired absence of both cervix and uterus; Z87.891 Personal history of nicotine dependence
CPT/HCPCS: 36415; 70450; 71045; 72125; 72128; 72131; 72148; 74018; 80053; 81001; 83735; 83880; 84484; 85025; 85027; 85610; 85730; 93005; 93306; 96374; 97110; 97116; 97161; 97166; 97530; 97535; 99285; A9270; G0378; J1650; J2270; J2405; J7030

== ENCOUNTER 2024-08-01 08:36 | Outpatient (CLI) | payer MEDICARE, SELFPAY ==
--- OUTSIDE RECORDS SUMMARY | 2024-08-01 08:39 | XMS_ITS | Continuity of Care Document ---
Author Organization [facility] Address [address] [place] [address] [address] [place] [address] Phone Care Team Providers Care Drafter Geological Name Role Phone Henry Alvarez Unavailable Unavailable Procedures Procedure Date Eye Exam & Treatment Refraction Eye Exam, New Patient Refraction Refraction Advance Directives Directive Yes / No Effective Date File Name No Information Encounters Encounter Description Practice Location Reason(s) For Visit Diagnoses Date Provider Providers Copied on Encounter [facility], [address] [place] [address] [address], [place], [place], [id number], tel:[phone] [facility] No Information 7-201 0 Kim Figueroa. [address] , [address], [place], [address], [place]. tel:[phone] [facility], [address] [place] [address] [address], [place], [place], [id number], [place] tel:[phone] [facility] No Information 8-200 8 Kim Figueroa. [address] , [address], [place], [address], [place]. tel:[phone] Family History Family Member Type Diagnosis Age At Onset No Information Payers Payer name Insurance type Covered constitution party ID Authoriza tion(s) Medicare [facility] [id number] Social History Type Description Quantity Date Captured Comments Sex Female Smoking Status No Information Chief Complaint And Reason For Visit No Information Reason For Referral Reason For Referral No Information History Of Present Illness Encounter Date Complaint History Of Prese nt Illness No Information Functional Status Date Functional Assessmen t No Information Instructions Date Instruction Additional Infor mation No Information Assessments Type Assessment Date No Information Patient Care Teams Name Effective Dates (start - stop) Status Members No Information
--- OUTSIDE RECORDS SUMMARY | 2024-08-01 08:39 | XMS_ITS | Clinical Summary ---
Author Organization [facility] Address [address] [place] [address] Care Team Providers Care Clinical Neuropsychologist Name Role Phone Unavailable Primary Care Provider Unavailabl e Source Comments [facility],non-owned Affiliates and Associated Physician Practices is amultiple site organization consisting of ambulatory clinics and hospital sitesin [place], [place], [place] and [place]. This disclosure is being madepursuant to the Care Everywhere program and may not contain all information available regarding this patient. 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 Gender Identity Not on file Sexual Orientation Not on file Plan of Treatment Health Maintenance Due Date Last Done Comments BONE DENSITY TESTING 1938 DTAP/TDAP/TD VACCINES (1 - Tdap) 1957 PNEUMOCOCCAL VACCINE 50+ (1 of 1 - PCV) 1988 ZOSTER VACCINE (1 of 2) 1988 Respiratory Syncytial Virus (RSV) Vaccine Pt: or over 60 yrs (1 - 1-dose 75+ series) 2013 COVID-19 VACCINE ( - 2023-2 5 season) 2023 DEPRESSION SCREENING 02/27/2024 INFLUENZA VACCINE (Season Ended) 2024 HEPATITIS B VACCINE Aged Out No longe r eligible based on patient's age to complete this topic HIB VACCINE Aged Out No longer eligi ble based on patient's age to complete this topic HPV VACCINE Aged Out No longer eligi ble based on patient's age to complete this topic MENINGOCOCCAL (Group B) VACC INE SHARED DECISION-MAKING Aged Out No longer eligibl e based on patient's age to complete this topic MENINGOCOCCAL GROUPS A/C/Y/W VACCINE Aged Out No longer eligible b ased on patient's age to complete this topic Insurance MEDICARE
--- OUTSIDE RECORDS SUMMARY | 2024-08-01 08:39 | XMS_ITS | Encounter Summary ---
Author Organization [facility] Health Address [address] [place] [address] Care Team Providers Care Finishing Supervisor Name Role Phone Unavailable Primary Care Provider Unavailabl e Encounter Details Date Type Department Care Team (Late st Contact Info) Description 02/05/2019 Lab Requisition [facility] Derm[facility] Lab 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 Gender Identity Not on file Sexual Orientation Not on file documented as of this encounter Plan of Treatment Not on file documented as of this encounter Procedures Procedure Name Priority Date/Time Associated Diagnosis Comments DERMATOPATHOLOGY Routine 02/04/2019 12:0 0 AM PORTAINER OPERATOR documented in this encounter Results * DERMATOPATHOLOGY (02/04/2019 12:00 AM PORTAINER OPERATOR) Case Report Dermatopathology Report Case: [id number] Authorizing Provider: Sean Washington MD Collected: 02/04/2019 12:00 AM Ordering Location: [facility] Derm[facility] Lab Received: 02/05/2019 11:38 AM Pathologist: Mera Baer MD Specimen: Skin, left frontal jewish scalp 9 3:28 PM PORTAINER OPERATOR DERMATOPATHOLOGY LABORATORY Final Diagnosis Specimen A. 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 3:28 PM [facility] DERMATOPATHOLOGY LABORATORY Gross Description Specimen A: Received is one formalin filled container labeled with the patient's name and designated left frontal jewish scalp. The specimen consists of a punch biopsy measuring [id number]. Jar 0. 3:28 PM [facility] DERMATOPATHOLOGY LABORATORY Microscopic Description Specimen A. SKIN, left frontal jewish scalp: The specimen is submitted per alopecia protocol, then flipped ninety degrees and sectioned vertically. Sections show a decreased number of terminal hair follicles with prominent fibrosis and focal perifollicular chronic inflammation. These changes are more pronounced in the superficial and mid dermis. There is a shift from anagen to non-anagen hairs and an overall decrease in follicular size as well as an increased number of vellus hairs. There is relative hypertrophy of sebaceous glands. Original and deeper sections were reviewed. COMMENT: Histologic features of both a minimally inflammatory, scarring alopecia and an androgenetic alopecia are present. The histologic differential diagnosis for the minimally inflammatory, scarring alopecia include end-stage lichen planopilaris, which is favored, and central centrifugal cicatricial alopecia. Clinical correlation is recommended. 3:28 PM [facility] DERMATOPATHOLOGY LABORATORY Disclaimer An external and internal positive and negative controls are appropriate for the histochemical, immunohistochemical and immunofluorescence stain(s) in this case (if any), except where stated explicitly. The performance characteristics of the stain(s) cited in this report were developed and its performance characteristic determined by the Dermatopathology Laboratory at [facility], directed by Dr. Dieter Baer. These tests need not be, and therefore are not, approved by the [place] Food and Drug Administration. The tests are used for clinical purposes. Billing Codes Specimen Charges Stain Charges 12078 1 9 3:28 PM [facility] DERMATOPATHOLOGY LABORATORY Embedded Images 3:28 PM [facility] DERMATOPATHOLOGY LABORATORY Pathology/Cytolog y TISSUE SPECIMEN FROM SKIN / Unknown 02/04/2019 02/05/2019 11:38 AM [facility] Sean Washington MD LAB - PATHOLOGY/CYTOLOGY ORD ERABLES Final Result DERMATOPATHOLOGY LABORATORY [facility] - Department of Dermatology [address], [address]th Floor Lab [address] [phone] documented in this encounter Visit Diagnoses Not on filedocumented in this encounter
--- OUTSIDE RECORDS SUMMARY | 2024-08-01 08:39 | XMS_ITS | Encounter Summary ---
Author Organization [facility] Health Address [address] [place] [address] Care Team Providers Care Infant Nanny Name Role Phone Unavailable Primary Care Provider Unavailabl e Encounter Details Date Type Department Care Team (Late st Contact Info) Description 12/16/[address] 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 Received: 12/16/2019 10:52 AM Pathologist: Dee Santiago MD Specimen: Skin, right cheek 0 3:22 PM CDT DERMATOPATHOLOGY LABORATORY Final Diagnosis Specimen A. SKIN, right cheek: INTRADERMAL MELANOCYTIC NEVUS (D22.39) 0 3:22 PM CDT DERMATOPATHOLOGY LABORATORY at 1522 CDT Clinical History R/O BCC, nevus cyst 0 3:22 PM CDT DERMATOPATHOLOGY LABORATORY Gross Description Specimen A: Received is one formalin filled container labeled with the patient's name and designated right cheek. The specimen consists of a shave biopsy measuring 3x3x1 and 2x2x4 mm. Jar 0. 0 3:22 PM CDT DERMATOPATHOLOGY LABORATORY Microscopic Description Specimen A. SKIN, right cheek: There are nests of cytologically bland melanocytes within the dermis that mature with depth. 0 3:22 PM CDT DERMATOPATHOLOGY LABORATORY Disclaimer An external and internal positive and negative controls are appropriate for the histochemical, immunohistochemical and immunofluorescence stain(s) in this case (if any), except where stated explicitly. The performance characteristics of the stain(s) cited in this report were developed and its performance characteristic determined by the Dermatopathology Laboratory at [facility], directed by Dr. Dieter Baer. These tests need not be, and therefore are not, approved by the [place] Food and Drug Administration. The tests are used for clinical purposes. Billing Codes Specimen Charges Stain Charges 68803 1 0 3:22 PM CDT DERMATOPATHOLOGY LABORATORY Embedded Images 0 3:22 PM CDT DERMATOPATHOLOGY LABORATORY Pathology/Cytolog y TISSUE SPECIMEN FROM SKIN / Unknown 12/15/2019 12/16/2019 10:52 AM CDT Sean Washington MD LAB - PATHOLOGY/CYTOLOGY ORD ERABLES Final Result DERMATOPATHOLOGY LABORATORY [facility] - Department of Dermatology [address] [place] [address], [facility] [phone] documented in this encounter Visit Diagnoses Not on filedocumented in this encounter
[2024-08-01 12:14] LABS: Basophils Absolute Auto 0.1 K/mm3 (0.0-0.1); Basophils Percent Auto 0.8 % (0.2-1.2); Eosinophils Absolute Auto 0.1 K/mm3 (0-0.3); Hematocrit 41.1 % (37.0-47.0); Immature Granulocyte Absolute 0.01 K/mm3 (0.00-0.031); Immature Granulocyte Percent A 0.2 % (0-0.5); Lymphocytes Absolute Auto 1.99 K/mm3 (0.9-3.2); Lymphocytes Percent Auto 32.5 % (18.3-44.2); Mean Corpuscular HGB Conc 31.6 g/dl (32-36); Mean Corpuscular Hemoglobin 31.2 pg (26-34); Mean Corpuscular Volume 98.6 fl (80-100); Mean Platelet Volume 10.2 fl (7.4-10.4); Monocytes Absolute Auto 0.6 K/mm3 (0.1-0.6); Monocytes Percent Auto 9.8 % (2.6-8.5); Neutrophils Absolute Auto 3.4 K/mm3 (1.3-6.7); Neutrophils Percent Auto 54.7 % (45.5-73.1); Platelet Count Result 221 k/mm3 (150-375); Red Blood Count 4.17 M/mm3 (4.2-5.4); Red Cell Distribution Width 13.4 % (11.5-14.5); White Blood Count 6.1 K/mm3 (4.5-10.0)
[2024-08-01 12:37] LABS: Alanine Aminotransferase 15 U/L (6-35); Albumin Level 4.2 g/dL (3.5-5.1); Alkaline Phosphatase 73 U/L (38-126); Anion Gap 6 mmol/L (4-12); Aspartate Amino Transferase 45 U/L (14-36); Bilirubin,Total 0.4 mg/dL (0.2-1.3); Blood Urea Nitrogen 19 mg/dL (7-17); Calcium 9.2 mg/dL (8.4-10.2); Carbon Dioxide 30 mmol/L (22-30); Chloride 104 mmol/L (98-107); Cholesterol 201 mg/dL (0-200); Estimated Glomerular Filt Rate 47; Glucose 83 mg/dL (65-110); HDL Direct 53 mg/dL; Potassium 4.6 mmol/L (3.4-5.0); Sodium 140 mmol/L (137-145); Total Protein 7.2 g/dL (6.3-8.2); Triglycerides 80 mg/dL (<150)
[2024-08-01 12:41] LABS: Iron 71 ug/dL (37-170)
[2024-08-01 12:47] LABS: LDL Cholesterol Direct 98 mg/dL
[2024-08-01 12:56] LABS: Percent Iron Saturation 20 % (20-50)
[2024-08-01 13:14] LABS: Thyroid Stimulating Hormone Reflex 0.375 uIU/mL (0.465-4.68)
[2024-08-01 13:19] LABS: Hemoglobin A1C 5.2 % (<5.7)
[2024-08-01 13:44] LABS: Folic Acid > 20.0 ng/mL (2.76->20); Vitamin B12 > 1000.0 pg/mL (239-931)
[2024-08-01 13:55] LABS: Vitamin D 25 Hydroxy 48.2 ng/mL
[2024-08-01 13:56] LABS: Free T4 Free Thyroxine Reflex 1.18 ng/dL (0.78-2.19)
[2024-08-01 15:13] LABS: Total Triiodothyronine (T3) 1.24 NG/ML (0.82-1.58)
== END 2024-08-01 08:37 | disposition home or self-care (01) ==
LOC: ANHGOSHLAB 08:37
PROVIDERS: PCP Family Medicine; Visit Provider Family Medicine
DX: D64.9 Anemia, unspecified (principal); I10 Essential (primary) hypertension; E55.9 Vitamin D deficiency, unspecified; E78.5 Hyperlipidemia, unspecified; R73.9 Hyperglycemia, unspecified; Z00.00 Encounter for general adult medical examination without abnormal findings
CPT/HCPCS: 36415; 80053; 80061; 82306; 82607; 82728; 82746; 83036; 83540; 83550; 84439; 84443; 84480; 85025

== ENCOUNTER 2024-08-13 08:21 | Outpatient (CLI) | payer MEDICARE, SELFPAY ==
--- OUTSIDE RECORDS SUMMARY | 2024-08-13 08:34 | XMS_ITS | Referral Summary ---
Author Organization [facility] [address] Address [address] [place] [address] Care Team Providers Care Combination Worker Name Role Phone Willa Anaya MD Primary Care Provider Encounters Date Type Department Care Team Description 06/27/2024 1:00 PM CDT Infusion [facility] [address] [place] [phone] Osteoporosis without current pathological fracture, unspecified osteoporosis type (Primary Dx); Age-related osteoporosis without current pathological fracture 06/04/2024 Results Follow-Up [address] [place] [address] Charisma Bourgeois MD Vitamin D 25 hydroxy 06/02/[address] [place] [phone] Charisma Bourgeois MD Treatment Plan Update (New reclast) 06/02/2024 2:45 PM CDT [facility] at [address] [phone] Osteoporosis without current pathological fracture, unspecified osteoporosis type 06/02/2024 12:50 PM CDT Clinical Support [address] [place] [phone] Age-related osteoporosis without current pathological fracture (Primary Dx); Osteoporosis without current pathological fracture, unspecified osteoporosis type 06/02/2024 1:20 PM CDT Office Visit [address] [place] [phone] Charisma Bourgeois MD Osteoporosis without current pathological fracture, unspecified osteoporosis type (Primary Dx); Back pain, unspecified back location, unspecified back pain laterality, unspecified chronicity from Last 3 Months Allergies Active Allergy Reactions Criticality Noted Date Comments Sulfa (Sulfonamide Antibiotics) Medications calcium citrate/vitamin D3 (CITRACAL + D ORAL) Take 1 tablet by mouth daily Active multivit-minera ls/folic acid (CENTRUM ADULT 50 PLUS ORAL) Take 1 tablet by mouth daily Active DULoxetine DR (CYMBALTA) 30 mg capsule Take 1 capsule (30 mg total) by mouth daily 12/06/19 25 Active gabapentin (NEURONTIN) 100 mg capsule Take 1 capsule (100 mg total) by mouth 2 (two) times a day AND 3 capsules (300 mg total) nightly. 4 Active acetaminophen 500 mg capsule Take 2 capsules (1,000 mg total) by mouth every 6 (six) hours 4 Active Additional Information Patient taking differently: 500 mgoral3 times daily, Reported on 06/02/2024 lidocaine (LIDODERM) 5 % Place 1 patch on the skin daily Remove & discard patch within 12 hours or as directed by . 4 Active amLODIPine (NORVASC) 10 mg tablet Take 1 tablet (10 mg total) by mouth daily 4 02/16/20 25 Active meloxicam (MOBIC) 15 mg tablet 4 Active fluticasone propionate (FLONASE) 50 mcg/actuation nasal spray Administer 1 spray into each nostril daily Active multivitamin with minerals tablet Take 1 tablet by mouth daily Active telmisartan (MICARDIS) 40 mg tablet Take 1 tablet (40 mg total) by mouth daily 30 tablet 11 5 04/18/19 26 Active cholecalciferol , vitamin D3, (VITAMIN D3 ORAL) Take 1,000 Units by mouth Active BIOTIN ORAL Take by mouth Acti ve psyllium seed, sugar, (Metamucil, sugar,) powder Take by mouth A ctive Active Problems Problem Noted Date Diagnosed Date Osteoporosis without current pathological fractu re 06/02/2024 Orthostatic hypotension 04/22/2024 Congestive heart failure 04/22/2024 Productive cough 02/08/2024 Assessment & Plan (02/13/2024 10:22 AM STORE GROUP MANAGER): Patient admitted with runny nose, overnight developed cough; chest xray and respiratory panel negative. Remains afebrile and WBC within normal limit Encourage out of bed and use of IS -cough suppressant Fall at home, initial encounter 02/06/2024 Assessment & Plan (02/06/2024 1:25 PM STORE GROUP MANAGER): - Fall from 1 step, possible LOC, +dizziness noted after fall - Positive head strike #Acute/subacute L1 burst and S3 fracture 024 Assessment & Plan (02/13/2024 10:11 AM STORE GROUP MANAGER): # Nondisplaced insufficiency type L1 vertebral body fracture without height loss #Nondisplaced healing buckle sacral insufficiency fracture at S3 - Fall on 01/26 - Pt was at [facility] 1 week prior to transfer - Ortho Spine consult - Non op management - Pain control - PT/OT - MSK IR consult for kyphoplasty 02/06 - TLSO for comfort -follow up with orthopedic spine at discharge and pain management Discharge planning issues 02/06/2024 Assessment & Plan (02/14/2024 2:26 PM STORE GROUP MANAGER): 02/05: Direct admit to [facility]. Pending spine recs 02/06: Non op per spine. IR consult to see if patient would be a candidate for vertebroplasty. 02/07: POD1 from kyphoplasty, PT/OT brace PRN for comfort 02/08: Syncopal workup pending 02/10: Repeat orthostatics. Pending syncope work up. Pain control, Toradol x 1 dose 02/11: pending ECHO, repeat orthostatics. Applied GILMA hose 02/12 pt medically ready for discharge though received IV hydralazine overnight for elevated blood pressure. Plan discharge tomorrow. 02/13: Patient is medically stable for discharge, SW/CM updated. Discharge pending facility acceptance Treatment note [x] Syncope 02/06/2024 Assessment & Plan (02/14/2024 2:25 PM STORE GROUP MANAGER): - ECHO (at OSH) EF 65-70%, grade 1 diastolic dysfunction - OSVS positive: 02/07 orthostatic blood pressure positive 185/86 HR 64 in supine, 133/77 in sitting HR 67, 97/52 in standing HR 75 held morning antihypertensive lisinopril, restarted amlodipine - Pt had recent increase in Amlodipine dose - EKG NSR 65 - Carotid duplex less than 50% stenosed bilaterally - TTE complete EF 63% - 02/10 OSVS positive. Reduced amlodipine dose to 5mg - 02/11: Applied GILMA hose. Blood pressure improved with ambulation and patient was able to ambulate in the hallway without dizziness. -Allowing permissive hypertension (Systolic goal less than 180) due to orthostatic hypotension. - Pharmacist did a medication review. The only medications on her list associated with orthostatic hypotension are the antihypertensives. Lisinopril is still on hold. Renal stone 02/06/2024 Assessment & Plan (02/06/2024 1:04 PM STORE GROUP MANAGER): - Incidental finding - 2mm non obstructing left renal stone noted on on OSH imaging Generalized weakness 11/30/2023 Weakness 11/29/2023 Low back pain, unspecified 11/01/2023 Assessment & Plan (02/13/2024 10:22 AM STORE GROUP MANAGER): - Chronic low back pain - Previous injections - Previously on oxycodone and tramadol - Continue multimodal pain medication -follow up with spine doctor at discharge and pain management Sciatica, right side 11/01/2023 Hyponatremia 08/18/2022 Assessment & Plan (02/12/2024 2:02 PM STORE GROUP MANAGER): - History of hyponatremia on other hospitalizations - Na 137 on 02/04 Resolved Hypertension 08/18/2022 Assessment & Plan (02/13/2024 10:21 AM STORE GROUP MANAGER): - Lisinopril 20mg D, Amlodipine 10mg D 02/07 held due to positive orthostatic BP 02/08 - amlodipine restarted, holding lisinopril 02/10 Reduced amlodipine dose to 5mg 02/12 blood pressure remain elevated for the past 24 hours increase amlodipine to 10 mg, continue to hold lisinopril. Repeat orthostatics, encourage pt to intake water. Varicose veins of lower extremity 04/20/2015 Resolved Problems Problem Noted Date Diagnosed Date Resolved Date Sinus bradycardia 08/18/2022 02/12/2024 Assessment & Plan (02/12/2024 9:57 AM STORE GROUP MANAGER): Telemetry Social History Tobacco Use Types Packs/Day Years Used Date Smoking Tobacco: Former Cigarettes Q uit: 02/26/1997 Smokeless Tobacco: Never Tobacco Cessation:Counseling Given: Not Answered Alcohol Use Standard Drinks/Week Comments Not Currently 0 (1 standard drink = 0.6 oz pur e alcohol) [facility] [employer] Answer Date Recorded In the past 12 months has [employer], gas, oil, or water [employer] threatened to shut off services in your home? No 02/06/2024 Humiliation, Afraid, Rape, and Kick questionnair e Answer Date Recorded Within the last year, have y ou been afraid of your partner or ex-partner? No 02/06/2024 Within the last year, have y ou been humiliated or emotionally abused in other ways by your partner or ex-partner? No Within the last year, have y ou been kicked, hit, slapped, or otherwise physically hurt by your partner or ex-partner? No 02/06/2024 Within the last year, have y ou been raped or forced to have any kind of sexual activity by your partner or ex-partner? No 02/06/2024 Social Connection and Isolat ion Panel [NHANES] Answer Date Recorded In a typical week, how many times do you talk on the phone with family, friends, or neighbors? More than three times a week 02/06/2024 How often do you get togethe r with friends or relatives? Three times a week 02/06/2024 How often do you attend chur ch or hinduism services? More than 4 times per year 02/06/2024 Do you belong to any clubs o r organizations such as judaism groups, unions, fraternal or athletic groups, or school groups? Yes 02/06/2024 How often do you attend meet ings of the clubs or organizations you belong to? More than 4 times per year 02/06/2024 Marital Status Not on file 02/06/2024 AUDIT-C Answer Date Recorded Q1: How often do you have a drink containing alcohol? Never 02/06/2024 Q2: How many drinks containi ng alcohol do you have on a typical day when you are drinking? Patient does not drink Q3: How often do you have si x or more drinks on one occasion? Never 02/06/2024 Overall Financial Resource Strain (CARDIA) Answe r Date Recorded How hard is it for you to pa y for the very basics like food, housing, medical care, and heating? Not hard at all 02/06/2024 PHQ-2 Answer Date Recorded PHQ-2 Total Score (If total score is 3 or more points, staff should administer the PHQ-9) 0 02/06/2024 [facility] Occupat ional Health - Occupational Stress Questionnaire Answer Date Recorded Do you feel stress - tense, restless, nervous, or anxious, or unable to sleep at night because your mind is troubled all the time - these days? Only a little 02/06/2024 Exercise Vital Sign Answer Date Recorde d On average, how many days pe r week do you engage in moderate to strenuous exercise (like a brisk walk)? 2 days 02/06/2024 On average, how many minutes do you engage in exercise at this level? 30 min 02/06/2024 Hunger Vital Sign Answer Date Recorded Within the past 12 months, y ou worried that your food would run out before you got the money to buy more. Never true 02/06/20 24 Within the past 12 months, t he food you bought just didn't last and you didn't have money to get more. Never true 02/06/2024 PRAPARE - Transportation Answer Date Re corded In the past 12 months, has l ack of transportation kept you from medical appointments or from getting medications? No 01/26 In the past 12 months, has l ack of transportation kept you from meetings, work, or from getting things needed for daily living? No 02/06/2024 PHQ-9 Answer Date Recorded PHQ-9 Total Score 0 02/06/2024 Housing Stability Vital Sign Answer Dennis e Recorded In the last 12 months, was t here a time when you were not able to pay the mortgage or rent on time? No 02/06/2024 Number of Times Moved in the Last Year Not on fi le 02/06/2024 At any time in the past 12 m [facility], were you homeless or living in a penitentiary (including now)? No 02/06/2024 Personal Safety Answer Date Recorded Have you ever been in or are you currently in a harmful physical or emotional relationship or is someone making you feel afraid or unsafe? Denies 02/06/2024 Comments No Sex and Gender Information Value Date Recorded Sex Assigned at Not on file Legal Sex Female 11:29 AM STORE GROUP MANAGER Gender Identity Not on file Sexual Orientation Not on file Last Filed Vital Signs Vital Sign Reading Time Taken Comments Blood Pressure 129/79 04/18/2024 12:23 PM STORE GROUP MANAGER Pulse 61 04/18/2024 12:23 PM STORE GROUP MANAGER Temperature 36.6 C (97.9 F) 02/15/2024 10:30 AM STORE GROUP MANAGER Respiratory Rate 19 04/18/2024 12:23 PM STORE GROUP MANAGER Oxygen Saturation 98% 04/18/2024 12:23 PM STORE GROUP MANAGER Inhaled Oxygen Concentration - - Weight 76.4 kg (168 lb 8 oz) 06/27/2024 12:29 PM CDT Height 165.1 cm (5' 5) 06/02/2024 1:22 PM CDT Body Mass Index 28.04 06/02/2024 1:22 PM CDT Plan of Treatment Not on file Goals Goal Patient Goal Type Associated Problems Recent Progress Patient-Stated? Author CCM Chronic Pain Care Plan Chronic Care Management No Shirley Yarbrough, RN Note: Problem: Chronic Pain Goals: 1. Minimize further functional decline 2. Maximize quality of life 3. Control pain Strategies: - Activity/exercise program recommendation - Conservative stepwise pain medicine strategy with multi-disciplinary approach - Recommend healthy lifestyle strategies and compensatory methods as needed Procedures Procedure Name Priority Date/Time Associated Diagnosis Comments EGFR Routine 06/02/2024 3:00 PM CDT Osteoporosis without current pathological fracture, unspecified osteoporosis type PHOSPHORUS Routine 06/02/2024 3:00 PM CDT Osteoporosis without current pathological fracture, unspecified osteoporosis type PROTEIN ELECTROPHORESIS, WITH REFLEX, SERUM Routine 06/02/2024 3:00 PM CDT Osteoporosis without current pathological fracture, unspecified osteoporosis type PTH Routine 06/02/2024 3:00 PM CDT Osteoporosis without current pathological fracture, unspecified osteoporosis type VITAMIN D 25 HYDROXY Routine 06/02/2024 3:00 PM CDT Osteoporosis without current pathological fracture, unspecified osteoporosis type COMPREHENSIVE METABOLIC PANEL Routine 06/02/2024 3:00 PM CDT Osteoporosis without current pathological fracture, unspecified osteoporosis type DEXA TBS AXIAL SKELETON BONE DENSITY 1 OR MORE SITES Schedule Routine, Read Routine (OP Routine) 06/02/2024 1:21 PM CDT Age-related osteoporosis without current pathological fracture from Last 3 Months Results * (ABNORMAL) eGFR (06/02/2024 3:00 PM CDT) eGFR 55(L) >=60 mL/min/1. 73 m2 Comment: Interpretive Data Reference Interval Normal >/= 90 mL/min/1.73m2 Mildly decreased* 60 - 89 mL/min/1.73m2 Mildly to moderately decreased 45 - 59 mL/min/1.73m2 Moderately to severely decreased 30 - 44 mL/min/1.73m2 Severely decreased 15 - 29 mL/min/1.73m2 Kidney Failure < 15 mL/min/1.73m2 *Relative to young adult level Estimated glomerular filtration rate is determined by the 2020 CKD-EPI equation recommended by the National Kidney Foundation (A Unifying Approach to GFR Estimation: Recommendations of the NKF-ASK Task Force on Reassessing the Inclusion of Race in Diagnosing Kidney Disease, JASN 2020). The CKD-EPI equation should not be used for patients with unstable renal function and has not been validated in children and those over 70. Current interpretive data was last reviewed 2020. Testing performed by: [facility], [id number] [place], [place] [address] [place] [address] Blood 06/02/2024 3:00 PM CDT 06/02/2024 3:28 PM CDT Charisma Bourgeois MD LAB BLOOD ORDERABLE S Final Result Performing Organization Address [facility] Co de Phone Number SCOTT [facility] [address] [facility]. [place] [address] * Vitamin D 25 hydroxy (06/02/2024 3:00 PM CDT) Pathologist [facility] Vitamin D 25-OH 54 30 - 80 ng/mL Comment:Testing performed by : [facility], [id number] [place], [place] [id number] [place] [address] Blood 06/02/2024 3:00 PM CDT 06/02/2024 3:28 PM CDT Charisma Bourgeois MD LAB BLOOD ORDERABLE S Final Result Performing Organization Address [facility] Co de Phone Number MIREILLENER BJW[facility] [address] [facility]. [place] [address] * Protein electrophoresis with reflex, serum with interpretation (06/02/2024 3:00 PM CDT) Pathologist [facility] Protein, sr 6.7 6.2 - 8.2 g/dL Comment:Testing performed by : [facility], [address] [place] [address]., [address] Albumin 4.2 3.2 - 5.0 g/dL SCOTT BRAGA Comment:Testing performed by : [facility], [address] [place] [address]., [address] Alpha-1 globulin 0.3 0.2 - 0.4 g/dL SCOTT BRAGA Comment:Testing performed by : [facility], [address] [place] [address]., [id number] Alpha-2 globulin 0.7 0.5 - 1.0 g/dL SCOTT BRAGA Comment:Testing performed by : [facility], [address] [place] [address]., [address] Beta-1 globulin 0.4 0.3 - 0.6 g/dL SCOTT BRAGA Comment:Testing performed by : [facility], [address] [place] [address]., [address] Beta-2 globulin 0.3 0.2 - 0.6 g/dL SCOTT BRAGA Comment:Testing performed by : [facility], [address] [place] [address]., [id number] Gamma globulin 0.8 0.5 - 1.7 g/dL SCOTT BRAGA Comment:Testing performed by : [facility], [address] [place] [address]., [id number] SPEP interp See Comment SCOTT BRAGA Comment: SPEP INTERPRETATION: No apparent monoclonal peak Testing performed by: [facility], [address] [place] [address]., [id number] Blood 06/02/2024 3:00 PM CDT 06/02/2024 4:59 PM CDT Charisma Bourgeois MD LAB BLOOD ORDERABLE S Final Result [facility] [address] [place] [address] * Phosphorus (06/02/2024 3:00 PM CDT) [facility] Phosphorus, pl 3.6 2.3 - 4.5 mg/dL Comment:Testing performed by : [facility], [address], [place] [address] Blood 06/02/2024 3:00 PM CDT 06/02/2024 3:28 PM CDT Charisma Bourgeois MD LAB BLOOD ORDERABLE S Final Result Performing Organization Address City/[facility] Co de Phone Number [facility] [address] [place] [address] * PTH (06/02/2024 3:00 PM CDT) Pathologist [facility] PTH 35 15 - 65 pg/mL Comment:Testing performed by : [facility], [address], [place] [address] Blood 06/02/2024 3:00 PM CDT 06/02/2024 3:28 PM CDT Charisma Bourgeois MD LAB BLOOD ORDERABLE S Final Result Performing Organization Address [facility] de Phone Number [facility] [address] [place] [address] * Comprehensive metabolic panel (06/02/2024 3:00 PM CDT) Pathologist [facility] Sodium 139 135 - 145 mmol/L Comment:Testing performed by : [facility], [address], [place] [address] Potassium, pl 3.9 3.3 - 4.9 mmol/L CERNER BJWCH Comment:Testing performed by : [facility], [address], [place] [address] Chloride 101 97 - 110 mmol/L CERNER BJWCH Comment:Testing performed by : [facility], [address], [place] [address] CO2 28 22 - 32 mmol/L CERNER B[facility] Comment:Testing performed by : [facility], [address], [place] [address] Anion gap 10 2 - 15 mmol/L CERNER BJWCH Comment:Testing performed by : [facility], [address], [place] [address] BUN 24 6 - 25 mg/dL CERNER BJWCH Comment:Testing performed by : [facility], [address], [place] [address] Creatinine 1.00 0.60 - 1.10 mg/dL CERNER B[facility] Comment:Testing performed by : [facility], [address], [place] [address] Glucose 113 70 - 199 mg/dL CERNER [facility] Comment: Interpretive Data Fasting glucose >/= 126 mg/dl is diagnostic for diabetes. Fasting is defined as no caloric intake for at least 8 hours. Fasting glucose between 100 mg/dl to 125 mg/dl is diagnostic of prediabetes. In a patient with classic symptoms of hyperglycemia or hyperglycemic crisis, a random glucose >/= 200 mg/dl is diagnostic for diabetes. In the absence of unequivocal hyperglycemia, results should be confirmed by repeat testing. The classification and Diagnosis of Diabetes Diabetes Care 2021; 46: S19-S40. Current interpretive data was last revised 2022. Testing performed by: [facility], [address], [place] [address] Calcium 9.8 8.5 - 10.3 mg/dL CERNER BJWCH Comment:Testing performed by : [facility], [address], [place] [address] Bilirubin, total 0.3 0.1 - 1.2 mg/dL CERNER BJWCH Comment:Testing performed by : [facility], [address], [place] [address] Protein, pl 7.3 6.5 - 8.5 g/dL CERNER BJWCH Comment:Testing performed by : [facility], [address], [place] [address] Albumin 4.4 3.5 - 5.0 g/dL CERNER BJWCH Comment:Testing performed by : [facility], [address], [place] [address] Alk phos 72 40 - 130 Units/L CERNER B[facility] Comment:Testing performed by : [facility], [address], [place] [address] ALT 14 7 - 45 Units/L SCOTT BRAGA Comment:Testing performed by : [facility], [address] [place] [address] AST 20 10 - 45 Units/L SCOTT BRAGA Comment:Testing performed by : [facility], [address] [place] [address] Blood 06/02/2024 3:0 0 PM CDT 06/02/2024 3:28 PM CDT us Charisma Bourgeois MD LAB BLOOD ORDERABLE S Final Result SCOTT BRAGA [address] [place] [address] * Dexa TBS Axial Skeleton Bone Density 1 or more sites (06/02/2024 1:21 PM CDT) Anatomical Region Laterality Modality Wrist, Body N/A Radiographic Merline ging Narrative 06/02/2024 1:51 PM CDT Patient Name: Laina Kirk Date of : 1940 Date of scan: 06/02/2024 Bone mineral density was performed on a HoloMVERSE Discovery Densitometer. Based on machine cross-calibration and precision studies the least significant changes of this densitometer is 0.024 g/cm2 at the spine, 0.020 g/cm2 at the total proximal femur, and 0.014g/cm2 at the forearm. HISTORY: This is a 83 y.o. postmenopausal female with a history of vitamin D deficiency. She reports that she quit smoking about 27 years ago. Her smoking use included cigarettes. She has never used smokeless tobacco. Currently on treatment with calcium and vitamin D and current complaint of back pain. INDICATIONS: Menopause status, screening for osteoporosis, history of prior vertebral fracture, and vitamin D deficiency. FINDINGS: BONE MINERAL DENSITY OF THE LUMBAR SPINE Bone Mineral Density (BMD) of the lumbar spine was measured from L2-L4 and the average density was calculated to be 1.034 gm/cm2. This corresponds to a T-score (standard deviations from the mean of young adults) of -0.4. There is no previous study available for comparison. BONE MINERAL DENSITY OF THE PROXIMAL FEMUR Bone Mineral Density (BMD) of the left hip total was found to be 0.786 gm/cm2. This corresponds to a T-score standard deviations from the mean of young adults of -1.3. Femoral neck is 0.612 gm/cm2 with a T-score (standard deviations from the mean of young adults) of -2.1. There is no previous study available for comparison. BONE MINERAL DENSITY OF THE FOREARM Bone Mineral density (BMD) of the right proximal 1/3 of the radius measures 0.504 gm/cm2. This corresponds to a T-score (standard deviations from the mean of young adults) of -3.2. There is no previous study available for comparison. A forearm bone density study was performed in addition to the routine study due to department forearm protocol. SUMMARY: Bone mineral density shows evidence of osteoporosis and marked increase risk of fracture. L1 excluded due to the presence of vertebroplasty material. The lumbar spine Trabecular Bone Score is 1.445 which suggests normal bone microarchitecture, compared to the general population. Final decisions regarding diagnostic or therapeutic recommendations should include BMD, TBS, additional clinical risk factors as well the clinical context of the patient. Please see attached TBS results for further details. ADDITIONAL COMMENTS: Postmenopausal Women and Men Over 50: Diagnostic criteria: Osteoporosis: BMD at or below -2.5 T-score; Osteopenia (low bone mass): BMD between -1.0 and -2.5 T-score. If the patient has a history of a fragility fracture, a fracture that occurred with trauma equivalent to a fall from a standing position or less, then the diagnosis is osteoporosis regardless of bone density. The history and data sections of the bone mineral density scan were prepared by Dionne Anderson) CANDIDO who is accredited by the International Society of Clinical Densitometry. The overall patient assessment and scan interpretation were performed by Angeline Loredo M.D. who is certified by the International Society of Clinical Densitometry. [id number] Charisma Bourgeois MD IMG DXA PROCEDURES Final Result from Last 3 Months Insurance MEDICARE [employer] MEDICARE [facility] Advance Directives For more information, please contact: [phone] * Full Code (Latest Code Status on File) Date Activated Date Inactivated Comments 02/06/2024 11:17 AM 02/15/2024 5:06 PM * Full Code Date Activated Date Inactivated Comments 11/29/2023 7:07 PM 12/05/2023 6:29 PM Care Teams Combination Worker Relationship Specialty Start Date End Date Willa Anaya MD PCP - General Family Practice 07/25/22
--- OUTSIDE RECORDS SUMMARY | 2024-08-13 08:34 | XMS_ITS | Clinical Summary ---
Author Organization [facility] Address [address] [place] [address] Care Team Providers Care Photographic Platemaker Name Role Phone Unavailable Primary Care Provider Unavailabl e Source Comments [facility],non-owned Affiliates and Associated Physician Practices is amultiple site organization consisting of ambulatory clinics and hospital sitesin [place], [place], [place] and [place]. This disclosure is being madepursuant to the Care Everywhere program and may not contain all information available regarding this patient. Last updated 17.[facility] [employer] Social History Tobacco Use Types Packs/Day Years Used Date Smoking Tobacco: Never Assessed Comments Unknown Sex and Gender Information Value Date Recorded Sex Assigned at Not on file Legal Sex Female 6:42 PM APPOINTMENT COORDINATOR Gender Identity Not on file Sexual Orientation [...]
--- OUTSIDE RECORDS SUMMARY | 2024-08-13 08:34 | XMS_ITS | Encounter Summary ---
Author Organization [facility] Health Address [address] [facility] [address] Care Team Providers Care Vp Training Name Role Phone Unavailable Primary Care Provider Unavailabl e Encounter Details Date Type Department Care Team (Late st Contact Info) Description 02/05/2019 Lab Requisition [facility] [address], [facility] [place] [address] Sean Washington MD [address] [place] [address] Social History Tobacco Use Types Packs/Day Years Used Date Smoking Tobacco: Never Assessed Comments Unknown Sex and Gender Information Value Date Recorded Sex Assigned at Not on file Legal Sex Female 6:42 PM SECURITY ALARM INSTALLER Gender Identity Not on file Sexual Orientation Not on file documented as of this encounter Plan of Treatment Not on file documented as of this encounter Procedures Procedure Name Priority Date/Time Associated Diagnosis Comments DERMATOPATHOLOGY Routine 02/04/2019 12:0 0 AM SECURITY ALARM INSTALLER documented in this encounter Results * DERMATOPATHOLOGY (02/04/2019 12:00 AM SECURITY ALARM INSTALLER) Case Report Dermatopathology Report Case: [id number] Authorizing Provider: Sean Washington MD Collected: 02/04/2019 12:00 AM Ordering Location: [facility] Received: 02/05/2019 11:38 AM Pathologist: Mera Baer MD Specimen: Skin, left frontal muslim scalp 9 3:28 PM SECURITY ALARM INSTALLER DERMATOPATHOLOGY LABORATORY Final Diagnosis Specimen A. 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 3:28 PM [facility] DERMATOPATHOLOGY LABORATORY Gross Description Specimen A: Received is one formalin filled container labeled with the patient's name and designated left frontal muslim scalp. The specimen consists of a punch biopsy measuring [id number]. Jar 0. 3:28 PM [facility] DERMATOPATHOLOGY LABORATORY Microscopic Description Specimen A. SKIN, left frontal muslim scalp: The specimen is submitted per alopecia [...] alopecia. Clinical correlation is recommended. 3:28 PM [facility] DERMATOPATHOLOGY LABORATORY Disclaimer An external and internal positive and negative controls are appropriate for the histochemical, immunohistochemical and immunofluorescence stain(s) in this case (if any), except where stated explicitly. The performance characteristics of the stain(s) cited in this report were developed and its performance characteristic determined by the Dermatopathology Laboratory at [facility], directed by Dr. Dieter Baer. These tests need not be, and therefore are not, approved by the [place] Food and Drug Administration. The tests are used for clinical purposes. Billing Codes Specimen Charges Stain Charges 21821 1 9 3:28 PM [facility] DERMATOPATHOLOGY LABORATORY Embedded Images 3:28 PM [facility] DERMATOPATHOLOGY LABORATORY Pathology/Cytolog y TISSUE SPECIMEN FROM SKIN / Unknown 02/04/2019 02/05/2019 11:38 AM [facility] Sean Washington MD LAB - PATHOLOGY/CYTOLOGY ORD ERABLES Final Result DERMATOPATHOLOGY LABORATORY [facility] - Department of Dermatology [address], 5th Floor Lab [address] [phone] documented in this encounter Visit Diagnoses Not on filedocumented in this encounter
--- OUTSIDE RECORDS SUMMARY | 2024-08-13 08:34 | XMS_ITS | Encounter Summary ---
Author Organization [facility] Health Address [address] [place] [address] Care Team Providers Care Pipe Stem Sawyer Name Role Phone Unavailable Primary Care Provider Unavailabl e Encounter Details Date Type Department Care Team (Late st Contact Info) Description 12/16/2019 Lab Requisition [facility] DermPath Lab [address] [place] [address] Sean Washington MD [address] [place] [address] Social History Tobacco Use Types Packs/Day Years Used Date Smoking Tobacco: Never Assessed Comments Unknown Sex and Gender Information Value Date Recorded Sex Assigned at Not on file Legal Sex Female 6:42 PM RETRIEVAL SPECIALIST Gender Identity Not on file Sexual Orientation Not on file documented as of this encounter Plan of Treatment Not on file documented as of this encounter Procedures Procedure Name Priority Date/Time Associated Diagnosis Comments DERMATOPATHOLOGY Routine 12/15/2019 12:0 0 AM CDT documented in this encounter Results * DERMATOPATHOLOGY (12/15/2019 12:00 AM CDT) Case Report Dermatopathology Report Case: [id number] Authorizing Provider: Sean Washington MD Collected: 12/15/2019 12:00 AM Ordering Location: [facility] DermPath Lab Received: 12/16/2019 10:52 AM Pathologist: [...] characteristic determined by the Dermatopathology Laboratory at [facility], directed by Dr. Dieter Baer. These tests need not be, and therefore are not, approved by the [place] Food and Drug Administration. The tests are used for clinical purposes. Billing Codes Specimen Charges Stain Charges 76952 1 0 3:22 PM CDT DERMATOPATHOLOGY LABORATORY Embedded Images 0 3:22 PM CDT DERMATOPATHOLOGY LABORATORY Pathology/Cytolog y TISSUE SPECIMEN FROM SKIN / Unknown 12/15/2019 12/16/2019 10:52 AM CDT Sean Washington MD LAB - PATHOLOGY/CYTOLOGY ORD ERABLES Final Result DERMATOPATHOLOGY LABORATORY [facility] - Department of Dermatology [address] [place] [address], [facility] [phone] documented in this encounter Visit Diagnoses Not on filedocumented in this encounter
--- OUTSIDE RECORDS SUMMARY | 2024-08-13 08:34 | XMS_ITS | Clinical Summary ---
Author Organization [facility] [address] Address [address] [place] [address] Care Team Providers Care Bottle Assembler Name Role Phone Willa Anaya MD Primary Care Provider Allergies Active Allergy Reactions Criticality Noted Date Comments Sulfa (Sulfonamide Antibiotics) Medications calcium citrate/vitamin D3 (CITRACAL + D ORAL) Take 1 tablet by mouth daily Active multivit-minera ls/folic acid (CENTRUM ADULT 50 PLUS ORAL) Take 1 tablet by mouth daily Active DULoxetine DR (CYMBALTA) 30 mg capsule Take 1 capsule (30 mg total) by mouth daily 4 12/06/19 25 Active gabapentin (NEURONTIN) 100 mg [...] within 12 hours or as directed by MD. 4 Active amLODIPine (NORVASC) 10 mg tablet [...] 02/08/2024 Assessment & Plan (02/13/2024 10:22 AM ASSEMBLY LEADER): Patient admitted with runny nose, overnight developed cough; chest xray and respiratory panel negative. Remains afebrile and WBC within normal limit Encourage out of bed and use of IS -cough suppressant Fall at home, initial encounter 02/06/2024 Assessment & Plan (02/06/2024 1:25 PM ASSEMBLY LEADER): - Fall from 1 step, possible LOC, +dizziness noted after fall - Positive head strike #Acute/subacute L1 burst and S3 fracture 024 Assessment & Plan (02/13/2024 10:11 AM ASSEMBLY LEADER): # Nondisplaced insufficiency type L1 vertebral body [...] 02/06/2024 Assessment & Plan (02/14/2024 2:26 PM ASSEMBLY LEADER): 02/05: Direct admit to [facility]TS. Pending spine [...] 02/06/2024 Assessment & Plan (02/14/2024 2:25 PM ASSEMBLY LEADER): - ECHO (at OSH) EF 65-70%, grade [...] 02/06/2024 Assessment & Plan (02/06/2024 1:04 PM ASSEMBLY LEADER): - Incidental finding - 2mm non obstructing left renal stone noted on on OSH imaging Generalized weakness 11/30/2023 Weakness 11/29/2023 Low back pain, unspecified 11/01/2023 Assessment & Plan (02/13/2024 10:22 AM ASSEMBLY LEADER): - Chronic low back pain - Previous injections - Previously on oxycodone and tramadol - Continue multimodal pain medication -follow up with spine doctor at discharge and pain management Sciatica, right side 11/01/2023 Hyponatremia 08/18/2022 Assessment & Plan (02/12/2024 2:02 PM ASSEMBLY LEADER): - History of hyponatremia on other hospitalizations - Na 137 on 02/04 Resolved Hypertension 08/18/2022 Assessment & Plan (02/13/2024 10:21 AM ASSEMBLY LEADER): - Lisinopril 20mg D, Amlodipine 10mg D [...] 02/12/2024 Assessment & Plan (02/12/2024 9:57 AM ASSEMBLY LEADER): Telemetry Encounters Date Type Department Care Team Description 06/27/2024 1:[address] [facility] [address] [place] [address] Osteoporosis without current pathological fracture, unspecified osteoporosis type (Primary Dx); Age-related osteoporosis without current pathological fracture 06/04/2024 Results Follow-Up [facility] [address] [place] [address] Charisma Bourgeois MD Vitamin D 25 hydroxy 06/02/2024 2:45 PM CDT Lab [facility] at [address] [address] Osteoporosis without current pathological fracture, unspecified osteoporosis type 06/02/2024 1:20 PM CDT Office Visit [facility] [address] [facility] [address] [place] [address] Charisma Bourgeois MD Osteoporosis without current pathological fracture, unspecified osteoporosis type (Primary Dx); Back pain, unspecified back location, unspecified back pain laterality, unspecified chronicity 06/02/2024 12:50 PM CDT Clinical Support [address] [place] [address] Age-related osteoporosis without current pathological fracture (Primary Dx); Osteoporosis without current pathological fracture, unspecified osteoporosis type 06/02/[address] [place] [address] Charisma Bourgeois MD Treatment Plan Update (New reclast) from Last 3 Months Surgical History Surgery Date Site/Laterality Comments REPLACEMENT TOTAL KNEE 02/27/2000 - 02/25/2001 ABLATION SAPHENOUS VEIN W/ RFA 02/26/2014 - 02/25/2015 ADHESIOLYSIS 02/26/1999 - 02/26/2000 HYSTERECTOMY 02/26/1977 - 02/25/1978 KYPHOPLASTY LUMBAR 02/07/2024 N/A APPENDECTOMY JOINT REPLACEMENT Medical History Medical History Date Comments Sinus bradycardia Hypertension GERD (gastroesophageal reflux disease) Arthritis Cataract Family History Medical History Relation Name Comments Pneumonia Father Family history of pneumonia - (Added by TW Conv) Cancer [facility] Family history of malignant neoplasm - (Added by TW Conv) Diabetes [facility] Family history of diabetes mellitus - (Added by Conv) Broken bones Neg Hx Hip fracture Neg Hx Kyphosis Neg Hx Osteoporosis Neg Hx Scoliosis Neg Hx Relation Name Status Comments Father [facility] Social History Tobacco Use Types Packs/Day Years Used Date Smoking Tobacco: Former Cigarettes Q uit: 02/26/1997 Smokeless Tobacco: Never Tobacco Cessation:Counseling Given: Not Answered Alcohol Use Standard Drinks/Week Comments Not Currently 0 (1 standard drink = 0.6 oz pur e alcohol) [facility] Utilities Answer Date Recorded In the past 12 months has th e electric, gas, oil, or water [employer] threatened to shut off services in your [...] 02/06/2024 How often do you attend chur or judaism services? More than 4 times per year 02/06/2024 Do you belong to any clubs o r organizations such as evangelical groups, unions, fraternal or athletic groups, or [...] staff should administer the PHQ-9) 0 02/06/2024 [facility] - Occupational Stress [...] any time in the past 12 m [facility], were you homeless or living in a senior living (including now)? No 02/06/2024 Personal Safety Answer Date Recorded Have you ever been in or are you currently in a harmful physical or emotional relationship or is someone making you feel afraid or unsafe? Denies 02/06/2024 Comments No Sex and Gender Information Value Date Recorded Sex Assigned at Not on file Legal Sex Female 11:29 AM ASSEMBLY LEADER Gender Identity Not on file Sexual Orientation Not on file Obstetrics History Last Filed Vital Signs Vital Sign Reading Time Taken Comments Blood Pressure 129/79 04/18/2024 12:23 PM ASSEMBLY LEADER Pulse 61 04/18/2024 12:23 PM ASSEMBLY LEADER Temperature 36.6 C (97.9 F) 02/15/2024 10:30 AM ASSEMBLY LEADER Respiratory Rate 19 04/18/2024 12:23 PM ASSEMBLY LEADER Oxygen Saturation 98% 04/18/2024 12:23 PM ASSEMBLY LEADER Inhaled Oxygen Concentration - - Weight 76.4 kg (168 lb 8 oz) 06/27/2024 12:29 PM CDT Height 165.1 cm (5' 5) 06/02/2024 1:22 PM CDT Body Mass Index 28.04 06/02/2024 1:22 PM CDT Plan of Treatment Health Maintenance Due Date Last Done Comments Hepatitis B Screening 1958 Well Visit 65+ 12/12/2003 Covid-19 Vaccine (5 - 2023-2 5 season) 2023 02/11/2022, 01/26/2021, 05/13/2020, Additional history exists Influenza Vaccine (Season Ended) 2024 12/14/19 19, 12/03/2017 Depression Screening 02/03/2025 02/04/2024, 02/04/20 24 Fall Risk Assessment 06/27/2025 06/27/2024, 02/15/20 24 Osteoporosis Screening-Bone Density Scan 06/02/2026 06/02/2024 DTaP/Tdap/Td Vaccine (2 - Td or Tdap) 07/19/2031 07/18/2021 Zoster Vaccine Completed 07/07/2020, 01/28/2020 Pneumococcal vaccine 65+ Completed 07/18/2021 Goals Goal Patient Goal Type Associated Problems Recent Progress Patient-Stated? Author CCM Chronic Pain Care Plan Chronic Care Management Shirley Ching, RN Note: Problem: Chronic Pain Goals: 1. [...] was last reviewed 2020. Testing performed by: [facility], [address] [place] [address] Blood 06/02/2024 3:00 PM CDT 06/02/2024 3:28 PM CDT Charisma Bourgeois MD LAB BLOOD ORDERABLE S Final Result [facility] [address] [facility]. [place] [employer] [place] [address] * Vitamin D 25 hydroxy (06/02/2024 3:00 PM CDT) Pathologist [facility] Vitamin D 25-OH 54 30 - 80 ng/mL Comment:Testing performed by : [facility], [address], [place] [address] Blood 06/02/2024 3:00 PM CDT 06/02/2024 3:28 PM CDT Charisma Bourgeois MD LAB BLOOD ORDERABLE S Final Result Performing Organization Address City/[facility] Co de Phone Number [facility] [address] [facility]. [place] [address] * Protein electrophoresis with reflex, serum with interpretation (06/02/2024 3:00 PM CDT) [facility] Protein, sr 6.7 6.2 - 8.2 g/dL Comment:Testing performed by : [facility], [address] [place] [address]., [id number] Albumin 4.2 3.2 - 5.0 g/dL [facility] Comment:Testing performed by : [facility], [address] [place] [address]., [address] Alpha-1 globulin 0.3 0.2 - 0.4 g/dL [facility] Comment:Testing performed by : [facility], [address] [place] [address]., [address] Alpha-2 globulin 0.7 0.5 - 1.0 g/dL [facility] Comment:Testing performed by : [facility], [address] [place] [address]., [address] Beta-1 globulin 0.4 0.3 - 0.6 g/dL [facility] Comment:Testing performed by : [facility], [address] [place] [address]., [address] Beta-2 globulin 0.3 0.2 - 0.6 g/dL [facility] Comment:Testing performed by : [facility], [address] [place] [address]., [address] Gamma globulin 0.8 0.5 - 1.7 g/dL [facility] Comment:Testing performed by : [facility], [address] [place] [address]., [address] SPEP interp See Comment [facility] Comment: SPEP INTERPRETATION: No apparent monoclonal peak Testing performed by: [facility], [address] [place] [address]., [address] Blood 06/02/2024 3:00 PM CDT 06/02/2024 4:59 PM CDT Charisma Bourgeois MD LAB BLOOD ORDERABLE S Final Result Performing Organization Address City/[facility] Co de Phone Number [facility] [address] [facility]. [facility] [place] [address] * Phosphorus (06/02/2024 3:00 PM CDT) [facility] Phosphorus, pl 3.6 2.3 - 4.5 mg/dL Comment:Testing performed by : [facility], [address] [place] [address] Blood 06/02/2024 3:00 PM CDT 06/02/2024 3:28 PM CDT Charisma Bourgeois MD LAB BLOOD ORDERABLE S Final Result [facility] [address] [facility]. [place] [address] * PTH (06/02/2024 3:00 PM CDT) [facility] PTH 35 15 - 65 pg/mL Comment:Testing performed by : [facility], [address], [place] [address] Blood 06/02/2024 3:00 PM CDT 06/02/2024 3:28 PM CDT Charisma Bourgeois MD LAB BLOOD ORDERABLE S Final Result [facility] [address] [place] [address] * Comprehensive metabolic panel (06/02/2024 3:00 PM CDT) Pathologist [facility] Sodium 139 135 - 145 mmol/L Comment:Testing performed by : [facility], [address], [place] [address] Potassium, pl 3.9 3.3 - 4.9 mmol/L [facility] Comment:Testing performed by : [facility], [address], [place] [address] Chloride 101 97 - 110 mmol/L [facility] Comment:Testing performed by : [facility], [address], [place] [address] CO2 28 22 - 32 mmol/L [facility] Comment:Testing performed by : [facility], [address], [place] [address] Anion gap 10 2 - 15 mmol/L [facility] Comment:Testing performed by : [facility], [address], [place] [address] BUN 24 6 - 25 mg/dL [facility] Comment:Testing performed by : [facility], [address], [place] [address] Creatinine 1.00 0.60 - 1.10 mg/dL [facility] Comment:Testing performed by : [facility], [address], [place] [address] Glucose 113 70 - 199 mg/dL CERNER [...] was last revised 2022. Testing performed by: [facility], [address], [place] [address] Calcium 9.8 8.5 - 10.3 mg/dL [facility] Comment:Testing performed by : [facility], [address], [place] [address] Bilirubin, total 0.3 0.1 - 1.2 mg/dL [facility] Comment:Testing performed by : [facility], [address], [place] [address] Protein, pl 7.3 6.5 - 8.5 g/dL [facility] Comment:Testing performed by : [facility], [address], [place] [address] Albumin 4.4 3.5 - 5.0 g/dL [facility] Comment:Testing performed by : [facility], [address], [place] [address] Alk phos 72 40 - 130 Units/L [facility] Comment:Testing performed by : [facility], [address], [place] [address] ALT 14 7 - 45 Units/L [facility] Comment:Testing performed by : [facility], [address], [place] [address] AST 20 10 - 45 Units/L [facility] Comment:Testing performed by : [facility], [address], [place] [address] Blood 06/02/2024 3:00 PM CDT 06/02/2024 3:28 PM CDT us Charisma Bourgeois MD LAB BLOOD ORDERABLE S Final Result [facility] [address] [facility]. [place] [address] * Dexa TBS Axial Skeleton Bone Density 1 or more sites (06/02/2024 1:21 PM CDT) Anatomical Region Laterality Modality Wrist, Body N/A Radiographic Merline ging Narrative 06/02/2024 1:51 PM CDT Patient Name: Laina Kirk Date of : 1940 Date of scan: 06/02/2024 Bone mineral density was performed on a [employer] Discovery Densitometer. Based on machine cross-calibration and [...] by the International Society of Clinical Densitometry. [id number] Charisma Bourgeois MD IM DXA PROCEDURES Final Result from Last 3 Months Insurance MEDICARE [employer] MEDICARE [employer] MEDICARE [employer] Advance Directives For more information, please contact: [phone] * Full Code (Latest Code Status on File) Date Activated Date Inactivated Comments 02/06/2024 11:17 AM 02/15/2024 5:06 PM * Full Code Date Activated Date Inactivated Comments 11/29/2023 7:07 PM 12/05/2023 6:29 PM Care Teams Bottle Assembler Relationship Specialty Start Date End Date Willa Anaya MD PCP - General Family Practice 07/25/22
--- OUTSIDE RECORDS SUMMARY | 2024-08-13 08:34 | XMS_ITS | Encounter Summary ---
Author Organization [facility] Healthcare Address [address] [place] [address] Care Team Providers Care Redevelopment Manager Name Role Phone Willa Anaya MD Primary Care Provider Encounter Details Date Type Department Care Team (Late st Contact Info) Description 2023 Telephone [facility] [address] [place] [phone] Mylene Vanessa RN Social History Tobacco Use Types Packs/Day Years Used Date Smoking Tobacco: Former Alcohol Use Standard Drinks/Week Comments Not Currently 0 (1 standard drink = 0.6 oz pur e alcohol) Personal Safety Answer Date Recorded Have you ever been in or are you currently in a harmful physical or emotional relationship or is someone making you feel afraid or unsafe? Denies 11/29/2023 Comments No Sex and Gender Information Value Date Recorded Sex Assigned at Not on file Legal Sex Female 11:29 AM [employer]BER FORENS[employer] SPECIALIST Gender Identity Not on file Sexual Orientation Not on file documented as of this encounter Plan of Treatment Not on file documented as of this encounter Goals Goal Patient Goal Type Associated Problems [...] lifestyle strategies and compensatory methods as needed documented as of this encounter Visit Diagnoses Not on filedocumented in this encounter Care Teams Redevelopment Manager Relationship Specialty Start Date End Date Willa Anaya MD PCP - General Family Practice 07/25/22 documented as of this encounter
--- OUTSIDE RECORDS SUMMARY | 2024-08-13 08:34 | XMS_ITS | Continuity of Care Document ---
Author Organization [facility] Address [address] [place] [address] [address] [place] [address] Phone Care Team Providers Care Handbag Parts Cutter Name Role Phone Henry Alvarez Unavailable Unavailable Procedures Procedure Date Eye Exam & Treatment Refraction Eye Exam, New Patient Refraction Refraction Advance Directives Directive Yes / No Effective Date File Name No Information Encounters Encounter Description Practice Location Reason(s) For Visit Diagnoses Date Provider Providers Copied on Encounter [facility], [address] [place] [address] [address], [place], [place], [id number], tel:[phone] [address] [facility] No Information [phone] Kim Figueroa. [address] [facility] , [address], [place], [address], [place]. tel:[phone] [facility], [address] [place] [address] [address], [place], [place], [id number], [place] tel:[phone] [address] [facility] No Information [phone] Kim Figueroa. [address] [facility] , [address], [place], [address], [place]. tel:[phone] Family History Family Member Type Diagnosis Age At Onset No Information Payers Payer name Insurance type Covered republican ID Authoriza tion(s) Medicare [facility] [id number] Social History Type Description Quantity Date Captured [...]
[2024-08-13 19:39] LABS: Anion Gap 6 mmol/L (4-12); Blood Urea Nitrogen 19 mg/dL (7-17); Calcium 9.1 mg/dL (8.4-10.2); Carbon Dioxide 30 mmol/L (22-30); Chloride 104 mmol/L (98-107); Estimated Glomerular Filt Rate 53; Glucose 58 mg/dL (65-110); Potassium 4.5 mmol/L (3.4-5.0); Sodium 140 mmol/L (137-145)
== END 2024-08-13 08:22 | disposition home or self-care (01) ==
LOC: ANHGOSHLAB 08:23
PROVIDERS: PCP Family Medicine; Visit Provider Family Medicine
DX: N28.9 Disorder of kidney and ureter, unspecified (principal)
CPT/HCPCS: 36415; 80048

== ENCOUNTER 2024-08-18 09:32 | Outpatient (CLI) | payer MEDICARE, SELFPAY ==
--- NOTE | ~2024-08-18 | MR_ITS ---
EXAMINATION: MR brain/brain stem wo con DATE: 08/18/2024 10:15 INDICATION: Impaired cognition TECHNIQUE: Magnetic resonance imaging (MRI) of the brain and brainstem was performed without intraven ous contrast. Sequences included sagittal and axial T1-weighted SE, axial diffusion-weighted FS SE, a xial 3D SWAN, axial T2-weighted FLAIR, and axial T2-weighted FSE. Apparent diffusion coefficient (ADC ) maps were created. COMPARISON: None. FINDINGS: There are no areas of restricted diffusion to suggest acute infarction. No intracranial hemorrhage or abnormal intracranial mass lesion. There are scattered areas of nonspecific increased T2-weighted si gnal intensity in the cerebral white matter, predominantly involving the deep and periventricular whi te matter which is within normal limits for age and likely sequela of chronic small vessel ischemic d isease. There are no intraparenchymal signal abnormalities seen on the other pulse sequences. Symmetr ic prominence of the sulci and subarachnoid spaces overlying the bilateral frontal lobes consistent w ith mild to moderate frontal lobe predominant age-appropriate cerebral volume loss. The ventricles ar e symmetric and normal in size. There are no abnormal extra-axial fluid collections. Flow voids are s een in the cerebral arteries on the T2-weighted sequences consistent with their expected patency. Lef t vertebral artery is dominant. Changes of bilateral intraocular lens replacement. Visualized orbits and soft tissues are unremarkable. IMPRESSION: 1. No acute intracranial process. 2. Age-related changes including mild to moderate diffuse cerebral volume loss with frontal lobe pred ominance and mild scattered nonspecific white matter T2 hyperintensity consistent with chronic small vessel ischemic disease. Reviewed, dictated and finalized at location A. IMPRESSION: 1. No acute intracranial process. 2. Age-related changes including mild to moderate diffuse cerebral volume loss with frontal lobe predominance and mild scattered nonspecific white matter T2 h yperintensity consistent with chronic small vessel ischemic disease.
== END 2024-08-18 09:33 | disposition home or self-care (01) ==
LOC: GOSHIMG 09:33
PROVIDERS: PCP Family Medicine; Visit Provider Family Medicine
DX: R41.89 Other symptoms and signs involving cognitive functions and awareness (principal); R90.82 White matter disease, unspecified
CPT/HCPCS: 70551

== ENCOUNTER 2025-01-29 08:02 | Outpatient (CLI) | payer MEDICARE, SELFPAY ==
[2025-01-29 14:33] LABS: Anion Gap 3 mmol/L (4-12); Blood Urea Nitrogen 22 mg/dL (7-17); Calcium 9.2 mg/dL (8.4-10.2); Carbon Dioxide 33 mmol/L (22-30); Chloride 100 mmol/L (98-107); Estimated Glomerular Filt Rate 47; Glucose 80 mg/dL (65-110); Potassium 4.1 mmol/L (3.4-5.0); Sodium 136 mmol/L (137-145)
== END 2025-01-29 08:03 | disposition home or self-care (01) ==
PROVIDERS: PCP Family Medicine; Visit Provider Family Medicine
DX: N28.9 Disorder of kidney and ureter, unspecified (principal)
CPT/HCPCS: 36415; 80048